=== PATIENT | female | born 1935 | race Caucasian/White ===

== ENCOUNTER 2024-01-10 13:31 | Observation (INO) | payer MEDICARE, BC ==
--- NOTE | 2024-01-10 13:52 | ERPHSYRPT ---
- History of Present Illness Time Seen by Provider: 01/10/24 13:40 Source: patient, family Exam Limitations: no limitations Patient Subjective Stated Complaint: critical labs Triage Nursing Assessment: patient's daughter stated that her nephrologists had routine labs drawn 01/09/24, and her potassium came back at 2.6 Physician History: This is an emaciated appearing 88-year-old white female patient who had routine labs drawn 24 hours ago at the order of her [employer] supervisor. The potassium was 2.6. Patient was notified yesterday but her daughter did not bring the patient in until just now. Per patient's daughter's report, who provided additional, independent history secondary to the patient's memory lapses, the patient takes twice a day potassium supplementation. Patient has a history of chronically low potassium and chronically low sodium. Patient has chronic kidney disease, hyperlipidemia, gastroesophageal reflux disease, hypertension, hypothyroidism, arrhythmia (takes Eliquis). She is also on digoxin and takes Lasix daily. Patient denies headache. Patient denies chest pain. Patient denies nausea vo miting diarrhea symptoms. Patient denies abdominal pain Timing/Duration: today Severity: mild Associated Symptoms: denies symptoms Allergies/Adverse Reactions: Penicillins Adverse Reaction (Verified 01/10/24 13:43) Home Medications: Apixaban [Eliquis] 2.5 mg PO BID 04/16/23 [History] Levothyroxine Sodium 75 mcg PO DAILY 04/16/23 [History] Lorazepam 0.5 mg [Ativan 0.5 MG] 0.5 mg PO DAILY PRN PRN 04/16/23 [History] Metolazone 2.5 mg [Zaroxolyn 2.5 MG] 2.5 mg PO UD 04/16/23 [History] Metoprolol Succinate [Toprol Xl] 75 mg PO BID 04/16/23 [History] Simvastatin 20Mg [Zocor 20Mg] 20 mg PO QPM 04/16/23 [History] Torsemide 100 mg PO DAILY 01/10/24 [History] Hx Tetanus, Diphtheria Vaccination/Date Given: No Hx Influenza Vaccination/Date Given: No Hx Pneumococcal Vaccination/Date Given: No Travel Risk - International Travel Have you traveled outside of the country in past 3 weeks: No - Emerging Infectious Disease Are you exhibiting symptoms associated with any current EIDs: No - Review of Systems Constitutional: Weakness (Chronic) Eyes: No Symptoms Ears, Nose, & Throat: No Symptoms Respiratory: No Symptoms Cardiac: No Symptoms Abdominal/Gastrointestinal: No Symptoms Genitourinary Symptoms: No Symptoms Musculoskeletal: No Symptoms Skin: No Symptoms Neurological: No Symptoms Psychological: No Symptoms Endocrine: No Symptoms Hematologic/Lymphatic: No Symptoms Immunological/Allergic: No Symptoms All Other Systems: Reviewed and Negative - Past Medical History Pertinent Past Medical History: Yes Neurological History: No Pertinent History ENT History: No Pertinent History Cardiac History: No Pertinent History, Hypertension, Other Respiratory History: No Pertinent History Endocrine Medical History: Diabetes Type II Musculoskeletal History: No Pertinent History GI Medical History: Other History: No Pertinent History Psycho-Social History: No Pertinent History Female Reproductive Disorders: Ovarian Cancer Other Medical History: Left lower quadrant hernia, bowel obstruction in this area, afib - Past Surgical History Past Surgical History: Yes (LLQ hernia repair) Neuro Surgical History: No Pertinent History Cardiac: No Pertinent History Respiratory: No Pertinent History Gastrointestinal: Hernia Repair Genitourinary: No Pertinent History Musculoskeletal: No Pertinent History Female Surgical History: No Pertinent History Significant Family History: no pertinent family hx - Social History Smoking Status: Former smoker Exposure to second hand smoke: No Drug Use: none Patient Lives Alone: Yes - Social Determinants of Health Will the patient participate in the screening: Yes Do you worry about a steady place to live?: No In the past 12 months,have you had to go without utilities?: No Transportation Issues: No Has anyone in your support network made you feel unsafe?: No Have you or anyone in your house had to go without enough: No - Nursing Vital Signs Nursing Vital Signs: Initial Vital Signs Temperature 97.3 F 01/10/24 13:35 Pulse Rate 87 01/10/24 13:35 Respiratory Rate 16 01/10/24 13:35 Blood Pressure 112/45 01/10/24 13:35 O2 Sat by Pulse Oximetry 94 L 01/10/24 13:35 Pain Scale Pain Intensity 0 - Physical Exam General Appearance: no apparent distress, alert, cachetic Eye Exam: PERRL/EOMI, eyes nml inspection Ears, Nose, Throat Exam: normal ENT inspection, moist mucous membranes Neck Exam: normal inspection, non-tender, supple, full range of motion Respiratory Exam: normal breath sounds, lungs clear, airway intact, No chest tenderness, No respiratory distress Cardiovascular Exam: regular rate/rhythm, normal heart sounds, normal peripheral pulses Gastrointestinal/Abdomen Exam: soft, normal bowel sounds, No tenderness Pelvic Exam: not done Rectal Exam: not done Back Exam: normal inspection, normal range of motion, No CVA tenderness, No vertebral tenderness Extremity Exam: normal inspection, normal range of motion, pelvis stable Neurologic Exam: alert, oriented x 3, cooperative, 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 nml as tested, normal mood/affect Skin Exam: normal color, warm, dry Lymphatic Exam: No adenopathy SpO2 Interpretation: borderline oxygenation SpO2: 94 O2 Delivery: Room Air - Course Nursing assessment & vital signs reviewed: Yes EKG Interpreted by Me: RATE (85), A-fib, NORMAL AXIS, Left Bundle Branch Block, Other (No acute ischemia on today's twelve-lead EKG) Ordered Tests: Active Orders 24 hr Category Date Time Status Duplicating Machine Operator STAT Care 01/10/24 13:46 Completed EKG-ER Only STAT Care 01/10/24 13:46 Completed IV Insertion STAT Care 01/10/24 13:46 Completed Telemetry q4h Care 01/10/24 14:56 Completed Telemetry q4h Care 01/10/24 19:43 Completed BMP Stat Lab 01/10/24 13:46 Completed BMP Stat Lab 01/10/24 19:06 Completed BMP Stat Lab 01/10/24 21:35 Completed MAGNESIUM Stat Lab 01/10/24 13:46 Completed Medication Summary Discontinued Medications Generic Name Dose Route Start Last Admin Trade Name Freq PRN Reason Stop Dose Admin Potassium Chloride 20 meq in 100 mls @ 50 mls/hr 01/10/24 14:56 01/10/24 15:05 Potassium Chloride 20 Meq In Water 100ml IV 01/10/24 16:55 50 mls/hr STAT ONE Administration Sodium Chloride 500 mls @ 100 mls/hr 01/10/24 14:57 01/10/24 20:25 Sodium Chloride 0.9% 500 Ml IV 01/10/24 19:56 Infused .Q5H ONE Infusion Sodium Chloride Confirm 01/10/24 15:02 Sodium Chloride 0.9% 500 Ml Administered 01/10/24 15:03 Dose 500 mls @ ud IV .STK-MED ONE Potassium Chloride Confirm 01/10/24 15:02 Potassium Chloride 20 Meq In Water 100ml Administered 01/10/24 15:03 Dose 100 mls @ ud IV .STK-MED ONE Potassium Chloride 20 meq in 100 mls @ 50 mls/hr 01/10/24 19:42 Potassium Chloride 20 Meq In Water 100ml IV 01/10/24 21:41 STAT ONE Potassium Chloride 10 meq 01/10/24 14:56 01/10/24 15:04 Potassium Chloride Tab 10 Meq Tab PO 01/10/24 14:57 10 meq STAT ONE Administration Potassium Chloride Confirm 01/10/24 15:02 Potassium Chloride Tab 10 Meq Tab Administered 01/10/24 15:03 Dose 10 meq .ROUTE .STK-MED ONE Potassium Chloride 20 meq 01/10/24 20:18 01/10/24 20:40 Potassium Chloride Tab 10 Meq Tab PO 01/10/24 20:19 20 meq STAT ONE Administration Potassium Chloride Confirm 01/10/24 20:39 Potassium Chloride Tab 10 Meq Tab Administered 01/10/24 20:40 Dose 20 meq .ROUTE .STK-MED ONE Lab/Rad Data: Laboratory Result Diagrams 01/10/24 21:35 Laboratory Results 01/10/24 01/10/24 01/10/24 Range/Units 21:35 19:06 13:46 Sodium 131 L 129 L 129 L (135-145) mmol/L Potassium 2.7 L* 2.5 L* 2.7 L* (3.5-5.1) mmol/L Chloride 79 L 80 L 76 L (98-107) mmol/L Carbon Dioxide 38 H 39 H 36 H (22-30) mmol/L Anion Gap 16.7 H 12.5 19.7 H (5-15) MEQ/L BUN 118 H 121 H 131 H (7-17) mg/dL Creatinine 2.23 H 2.17 H 2.19 H (0.52-1.04) mg/dL Estimated GFR 20.6 21.3 21.0 ML/MIN Glucose 240 H 180 H 239 H (74-106) mg/dL Calcium 9.2 8.8 9.2 (8.4-10.2) mg/dL Magnesium 2.6 H (1.6-2.3) mg/dL - Progress Progress: re-examined Progress Note: 01/10/24 13:51 My medical decision making and the assignment of low to moderate complexity of this patient's medical issue is based on review of the patient's past medical history, review patient's medication list, review patient drug allergy list, history present illness and physical findings on examination. The workup in this patient includes placement of intravenous line, twelve-lead EKG, BMP and magnesium level. 01/10/24 22:10 I interpreted the patient's laboratory data results. The potassium 24 hours ago was 2.6. I repeated it today and it was 2.7. Magnesium level was 2.6 today. We provided the patient with 30 mEq of potassium (20 mill equivalents IV and 10 mEq p.o.). We repeated the potassium level and it actually decreased. I did not believe this was accurate. I did provide the patient with 20 mEq p.o. potassium and waited an hour to repeat the potassium level which returned to 2.7. The patient was not tolerating intravenous potassium and therefore we opted for the oral potassium. The patient has chronic low potassium usually around 3.3. I will contact the telehospitalist regarding this patient and possibly place her in observation/telemetry. 01/10/24 22:21 Patient has been hemodynamically stable throughout her stay in the emergency department. It has been difficult to get her potassium above 2.7 despite patient starting out at a potassium of 2.7 and receiving 50 mill equivalents of potassium over the last 8-1/2 hours. I think the patient would be best served by placing her in observation. I spoke with Dr. Alaina Monge and I reviewed the patient history, physical findings, presenting chief complaint and results of the laboratory data. He agrees and we will place this patient in observation on telemetry bed and follow a potassium protocol. Discussed with : Baltazar Counseled pt/family regarding: lab results, diagnosis Medical Desision Making - Independent Historian Additional History obtained from: Child - Discussion of managment Care discussed with:: hospitalist Reviewed:: Test results, Need for additional workup Agreed on:: place in obs Will see patient: in hospital - Diagnostic Testing Diagnostic test were ordered, analyzed, and reviewed by me: Yes - Risk of complications The pt has a high risk of morbidity or mortality based on: Decision regarding hospitilization or escalation of hosp level of care - Departure Departure Disposition: Observation Clinical Impression: Hypokalemia Condition: Stable Critical Care Time: No Critical Care Time(excluding separately billable procedures): Critical 30-74 mins (50) Referrals: SHAHRZAD BRYAN MD [Primary Care Provider] - Follow up/PCP as directed
[2024-01-10 14:24] LABS: Calcium 9.2 mg/dL (8.4-10.2); Creatinine 1 2.19 mg/dL (0.52-1.04); MAGNESIUM 2.6 mg/dL (1.6-2.3)
[2024-01-10 14:36] LABS: ANION GAP 19.7 MEQ/L (5-15); Potassium 2.7 mmol/L (3.5-5.1)
[2024-01-10] MEDS ORDERED: Sodium Chloride 0.9% 500 ML 500 ML IV ONE (15:02)
[2024-01-10] MEDS ORDERED: Klor Con ONE ×2 (15:02→20:39)
[2024-01-10] MEDS ORDERED: POTASSIUM CHLORIDE 20 mEq IN WATER 100ML 100 ML IV ONE (15:02)
[2024-01-10] MEDS: Klor Con PO ONE ×2 (15:04→20:40)
[2024-01-10] MEDS: POTASSIUM CHLORIDE 20 mEq IN WATER 100ML 20 MEQ/100 ML BAG IV ONE (15:05)
[2024-01-10] MEDS: Sodium Chloride 0.9% 500 ML 500 ML IV ONE (15:06)
[2024-01-10 19:24] LABS: Calcium 8.8 mg/dL (8.4-10.2); Creatinine 1 2.17 mg/dL (0.52-1.04); EST GLOMERULAR FILTRATION RATE 21.3 ML/MIN
[2024-01-10 19:37] LABS: Potassium 2.5 mmol/L (3.5-5.1)
[2024-01-10 19:38] LABS: ANION GAP 12.5 MEQ/L (5-15)
[2024-01-10 21:50] LABS: Calcium 9.2 mg/dL (8.4-10.2); Creatinine 1 2.23 mg/dL (0.52-1.04); EST GLOMERULAR FILTRATION RATE 20.6 ML/MIN
[2024-01-10 22:01] LABS: ANION GAP 16.7 MEQ/L (5-15); Potassium 2.7 mmol/L (3.5-5.1)
[2024-01-10] MEDS ORDERED: TYLENOL 325 MG PO PRN ×2 (23:13→23:16)
[2024-01-10] MEDS ORDERED: Zofran 4 MG/2 ML VIAL IV PRN (23:16)
--- NOTE | 2024-01-10 23:27 | PCM.HP ---
History of Present Illness - Chief Complaint Chief Complaint: Hypokalemia History of Present Illness: is a 88 year old female with CKD, chronic hypokalemia, CHF who presents with K of 2.6, sent in to ED by her nehphrologist. Per patient's daughter's report, who provided additional, independent history secondary to the patient's memory lapses, the patient takes twice a day potassium supplementation. Patient has a history of chronically low potassium and chronically low sodium. Patient has chronic kidney disease, hyperlipidemia, gastroesophageal reflux disease, hypertension, hypothyroidism, arrhythmia (takes Eliquis). She is also on digoxin and takes Lasix daily. Patient denies headache. Patient denies chest pain. Patient denies nausea vomiting diarrhea symptoms. Patient denies abdominal pain. - Review of Systems Constitutional: No Fever, No Chills Eyes: No Symptoms Ears, Nose, & Throat: No Symptoms Respiratory: No Cough, No Short Of Breath Cardiac: No Chest Pain, No Edema, No Syncope Abdominal/Gastrointestinal: No Abdominal Pain, No Nausea, No Vomiting, No Diarrhea Genitourinary Symptoms: No Dysuria Musculoskeletal: No Back Pain, No Neck Pain Skin: No Rash Neurological: No Dizziness, No Focal Weakness, No Sensory Changes Psychological: No Symptoms Endocrine: No Symptoms Hematologic/Lymphatic: No Symptoms Immunological/Allergic: No Symptoms Medications & Allergies Home Medications: Home Medication List Apixaban [Eliquis] 2.5 mg PO BID 04/16/23 [History Confirmed 01/10/24] Levothyroxine Sodium 75 mcg PO DAILY 04/16/23 [History Confirmed 01/10/24] Lorazepam 0.5 mg [Ativan 0.5 MG] 0.5 mg PO DAILY PRN PRN 04/16/23 [History Confirmed 01/10/24] Metolazone 2.5 mg [Zaroxolyn 2.5 MG] 2.5 mg PO UD 04/16/23 [History Confirmed 01/10/24] Metoprolol Succinate [Toprol Xl] 75 mg PO BID 04/16/23 [History Confirmed 01/10/24] Simvastatin 20Mg [Zocor 20Mg] 20 mg PO QPM 04/16/23 [History Confirmed 01/10/24] Acetaminophen 325 mg [Tylenol 325 mg] 650 mg PO Q4H PRN PRN tablet 04/18/23 [Rx Confirmed 01/10/24] D5ns 1000 ml [Dextrose 5%-NS IV Solution 1000 ML] 80 ml IV .[id number] 04/18/23 [Rx Confirmed 01/10/24] Ondansetron HCl 4 mg/2 ml [Zofran 4 MG/2 ML VIAL] 4 mg IV Q4H PRN PRN 04/18/23 [Rx Confirmed 01/10/24] Torsemide 100 mg PO DAILY 01/10/24 [History Confirmed 01/10/24] Allergies/Adverse Reactions: Allergies Allergy/AdvReac Type Severity Reaction Status Date / Time Penicillins AdvReac Verified 01/10/24 13:43 - Past Medical History Past Medical History: Yes Neurological History: No Pertinent History ENT History: No Pertinent History Cardiac History: No Pertinent History, Arrhythmia, High Cholesterol, Hypertension, Other Respiratory History: No Pertinent History Endocrine Medical History: Diabetes Type II, Hypothyroidism Musculoskelatal History: No Pertinent History GI Medical History: Other History: Renal Disease Pyscho-Social History: No Pertinent History Reproductive Disorders: Ovarian Cancer Comment: Left lower quadrant hernia, bowel obstruction in this area, afib - Past Surgical History Past Surgical History: Yes (LLQ hernia repair) Neuro Surgical History: No Pertinent History Cardiac History: No Pertinent History Respiratory Surgery: No Pertinent History GI Surgical History: Appendectomy, Cholecystectomy, Hernia Repair Genitourinary Surgical Hx: No Pertinent History Musculskeletal Surgical Hx: No Pertinent History Female Surgical History: Hysterectomy Significant Family History: no pertinent family hx - Social History Smoking Status: Former smoker Exposure to second hand smoke: No Alcohol: None Drug Use: none - Social Determinants of Health Will the patient participate in the screening: Yes Do you worry about a steady place to live?: No In the past 12 months,have you had to go without utilities?: No Have you or anyone in your house had to go without enough: No Transportation Issues: No Has anyone in your support network made you feel unsafe?: No Does the patient want assistance with any of the above?: No - Physical Exam Vital Signs: Vital Signs - 24 hr Temp Pulse Resp BP BP Pulse Ox 01/10/24 22:28 94 L 01/10/24 20:30 113/56 01/10/24 20:00 114/54 01/10/24 19:30 118/54 01/10/24 19:01 113/65 01/10/24 18:30 130/54 01/10/24 18:00 116/60 01/10/24 17:30 73 16 113/59 01/10/24 17:00 71 19 121/58 01/10/24 16:38 78 17 118/65 01/10/24 16:37 71 16 01/10/24 16:35 67 14 01/10/24 16:31 71 17 74/59 01/10/24 16:06 71 17 108/86 01/10/24 16:05 83 23 01/10/24 15:31 112/51 01/10/24 15:00 76 13 102/49 99 01/10/24 14:30 73 17 99/33 96 01/10/24 14:00 81 23 112/54 96 01/10/24 13:35 97.3 F 87 16 112/45 94 L General Appearance: no apparent distress, alert Neurologic Exam: alert, oriented x 3, cooperative, normal mood/affect, nml cerebellar function, nml station & gait, sensation nml, No motor deficits Eye Exam: PERRL/EOMI, eyes nml inspection Ears, Nose, Throat Exam: normal ENT inspection, TMs normal, pharynx normal, moist mucous membranes Neck Exam: normal inspection, non-tender, supple, full range of motion Respiratory Exam: normal breath sounds, lungs clear, No respiratory distress Cardiovascular Exam: regular rate/rhythm, normal heart sounds, normal peripheral pulses Gastrointestinal/Abdomen Exam: soft, normal bowel sounds, No tenderness, No mass Back Exam: normal inspection, normal range of motion, No CVA tenderness, No vertebral tenderness Extremity Exam: normal inspection, normal range of motion, pelvis stable Skin Exam: normal color, warm, dry, No rash Lymphatic Exam: No adenopathy Results - Labs Lab/Micro Results: Lab Results-Last 24 Hours 01/10/24 01/10/24 01/10/24 Range/Units 13:46 19:06 21:35 Sodium 129 L 129 L 131 L (135-145) mmol/L Potassium 2.7 L* 2.5 L* 2.7 L* (3.5-5.1) mmol/L Chloride 76 L 80 L 79 L (98-107) mmol/L Carbon Dioxide 36 H 39 H 38 H (22-30) mmol/L Anion Gap 19.7 H 12.5 16.7 H (5-15) MEQ/L BUN 131 H 121 H 118 H (7-17) mg/dL Creatinine 2.19 H 2.17 H 2.23 H (0.52-1.04) mg/dL Estimated GFR 21.0 21.3 20.6 ML/MIN Glucose 239 H 180 H 240 H (74-106) mg/dL Calcium 9.2 8.8 9.2 (8.4-10.2) mg/dL Magnesium 2.6 H (1.6-2.3) mg/dL Assessment/Plan (1) Hypokalemia Current Visit: Yes Status: Chronic Assessment & Plan: Likely due to diuretics but per daughter they are necessary to prevent swelling and has been followed by cardiology closely. 1. Replete with oral K as IV is not tolerated well, recheck at 4 am, and replete as needed Code(s): E87.6 - HYPOKALEMIA Telemedicine Encounter - Telemedicine Encounter Telemedicine Encounter: The entirety of this encounter was performed via Telemedicine"
[2024-01-11] MEDS: Klor Con PO ONE ×2 (00:17→22:35)
[2024-01-11] MEDS: POTASSIUM CHLORIDE 20 mEq IN WATER 100ML 20 MEQ/100 ML BAG IV ONE ×2 (01:17)
--- NOTE | 2024-01-11 05:12 | PCM.NOTE ---
Date and Time: 01/11/24 9892 Subjective Assessment: is a 88 year old female with CKD, AIF(Eliqus), HTN, GERD, HLD, hypothyroidism, chronic hypokalemia/hyponatremia, and CHF who presented to ED 01/10/24 under the advisement of her graphite mill operator for evaluation of hypokalemia with OP labs showing a K+ of 2.6. 01/11/24: Met with patient bedside. No complaints today other than the potassium campbell a little through her IV. Discussed labwork, Potassium level remains low at 2.4. Plan for replenishment today. Hold torsemide/metolazone. Possible discharge tomorrow pending treatment response. Denies fever,cough, sob, cp, abdominal pain, MORAN, dizziness, N/V/D. - Review of Systems Constitutional: No Symptoms Eyes: No Symptoms Ears, Nose, & Throat: No Symptoms Respiratory: No Symptoms Cardiac: No Symptoms Abdominal/Gastrointestinal: No Symptoms Genitourinary Symptoms: No Symptoms Musculoskeletal: No Symptoms Skin: No Symptoms Neurological: No Symptoms Psychological: No Symptoms Endocrine: No Symptoms Hematologic/Lymphatic: No Symptoms Immunological/Allergic: No Symptoms Objective Exam General Appearance: no apparent distress Neurologic Exam: alert, oriented x 3, cooperative Skin Exam: normal color Wound Assessment: Skin/Wound Assessment Wound/Incision Assessment Start: 01/10/24 23:48 Text: Status: Active Freq: Q6H Protocol: Document 01/11/24 02:00 AR (Rec: 01/11/24 02:20 AR [id number]) Wound/Incision Assessment Bilat lower legs Wound Assessment Admission Wound Stage Non Pressure Wound General Appearance Well Approximated,Reddened Surrounding Tissue Tiburon Comment Bilat legs are discolored, reddened, dry, and flaking of skin, Swelling noted. Left foot is cool to touch whereas right foot is warm to touch. Wound Photo Photo Taken Yes Date: 01/10/24 Time: 23:30 Eye Exam: PERRL Ears, Nose, Throat Exam: normal ENT inspection Neck Exam: normal inspection, full range of motion Respiratory Exam: normal breath sounds, lungs clear Cardiovascular Exam: regular rate/rhythm, normal heart sounds Gastrointestinal/Abdomen Exam: soft, normal bowel sounds Extremity Exam: normal inspection Back Exam: normal inspection Pelvic Exam: deferred Rectal Exam: deferred Objective Data Vital Signs: Vital Signs - 24 hr Temp Pulse Resp BP BP Pulse Ox 01/11/24 00:00 18 94 L 01/10/24 23:28 97.3 F 76 18 144/68 94 L 01/10/24 22:28 94 L 01/10/24 20:30 113/56 01/10/24 20:00 114/54 01/10/24 19:30 118/54 01/10/24 19:01 113/65 01/10/24 18:30 130/54 01/10/24 18:00 116/60 01/10/24 17:30 73 16 113/59 01/10/24 17:00 71 19 121/58 01/10/24 16:38 78 17 118/65 01/10/24 16:37 71 16 01/10/24 16:35 67 14 01/10/24 16:31 71 17 74/59 01/10/24 16:06 71 17 108/86 01/10/24 16:05 83 23 01/10/24 15:31 112/51 01/10/24 15:00 76 13 102/49 99 01/10/24 14:30 73 17 99/33 96 01/10/24 14:00 81 23 112/54 96 01/10/24 13:35 97.3 F 87 16 112/45 94 L Pain Assessment - Last Documented Pain Intensity 0 Intake and Output: Intake & Output 01/08/24 01/09/24 01/10/24 01/11/24 11:59 11:59 11:59 11:59 Weight 69 kg Lab Results: Lab Results-Last 24 Hours 01/10/24 01/10/24 01/10/24 Range/Units 13:46 19:06 21:35 Sodium 129 L 129 L 131 L (135-145) mmol/L Potassium 2.7 L* 2.5 L* 2.7 L* (3.5-5.1) mmol/L Chloride 76 L 80 L 79 L (98-107) mmol/L Carbon Dioxide 36 H 39 H 38 H (22-30) mmol/L Anion Gap 19.7 H 12.5 16.7 H (5-15) MEQ/L BUN 131 H 121 H 118 H (7-17) mg/dL Creatinine 2.19 H 2.17 H 2.23 H (0.52-1.04) mg/dL Estimated GFR 21.0 21.3 20.6 ML/MIN Glucose 239 H 180 H 240 H (74-106) mg/dL Calcium 9.2 8.8 9.2 (8.4-10.2) mg/dL Magnesium 2.6 H (1.6-2.3) mg/dL Assessment/Plan (1) Hypokalemia Current Visit: Yes Status: Acute Assessment & Plan: -2.6 on admission - received 50 meq po and 20meq IV - repeat K+ at 2.4 -plan for 20meq IV with IV NS +20K at 30ml/hr -Repeat potassium after 1st Krider - will replenish per protocol -Hold Torsemide/metolazone -tele Code(s): E87.6 - HYPOKALEMIA (2) Hyponatremia Current Visit: No Status: Acute Assessment & Plan: -mild, improving now at 132 -TSH, lipid, urine sodium/osmo -serum osmo -Pt does have h/o of malignancy ? SIADH Code(s): E87.1 - HYPO-OSMOLALITY AND HYPONATREMIA (3) Acute on chronic renal failure Current Visit: No Status: Acute Assessment & Plan: -baseline at 1.7 -avoid magalis/arb/diuretics -monitor renal/lytes daily -gentle hydration Code(s): N17.9 - ACUTE KIDNEY FAILURE, UNSPECIFIED; N18.9 - CHRONIC KIDNEY DISEASE, UNSPECIFIED (4) Atrial fibrillation Current Visit: No Status: Chronic Assessment & Plan: -continue home meds Eliquis/metoprolol Code(s): I48.91 - UNSPECIFIED ATRIAL FIBRILLATION (5) Metastases to the liver Current Visit: No Status: Chronic Assessment & Plan: -noted, adds complexity -LFTs WNL Code(s): C78.7 - SECONDARY MALIG NEOPLASM OF LIVER AND INTRAHEPATIC BILE DUCT (6) Ovarian cancer Current Visit: No Status: Chronic Assessment & Plan: -noted, adds complexity (7) Type 2 diabetes mellitus Current Visit: Yes Status: Acute Assessment & Plan: -ADA diet -SSI low dose -A1c VTE: Eliquis Dispo: 1-2 days Full Code
[2024-01-11] MEDS ORDERED: HUMALOG SQ PRN (05:18)
[2024-01-11 05:59] LABS: Absolute Neutrophil Ct (ANC) 4.66 x10^3/uL (1.56-6.13); BASOPHIL % 0.3 % (0.1-1.2); Basophil (Absolute #) 0.02 x10^3/uL (0.01-0.08); Eosinophil % 1.6 % (0.7-5.8); Hematocrit 26.4 % (34.1-44.9); Hemoglobin 8.6 g/dL (11.2-15.7); IMMATURE GRAN # 0.03 x10^3u/L (0.001-0.031); IMMATURE GRAN % 0.5 % (0.001-0.429); Lymphocyte (Absolute #) 0.77 x10^3/uL (1.18-3.74); Lymphocytes % 12.2 % (19.3-51.7); Mean Cell Volume 83.3 fL (79.4-94.8); Mean Corpuscular Hemoglobin 27.1 pg (25.6-32.2); Mean Corpuscular Hgb Concent. 32.6 g/dL (32.2-35.5); Mean Platelet Volume 9.8 fL (9.4-12.3); Monocyte (Absolute #) 0.71 x10^3/uL (0.24-0.86); Monocytes % 11.3 % (4.7-12.5); Neutrophil % 74.1 % (34.0-71.1); Platelet Count 266 x10^3/uL (182-369); Red Blood Count 3.17 x10^6/uL (3.93-5.22); Red Cell Distribution Width 15.7 % (11.7-14.4); White Blood Count 6.3 x10^3/uL (3.98-10.04)
[2024-01-11 06:45] LABS: ALBUMIN 3.7 g/dL (3.5-5.0); BILIRUBIN,TOTAL 0.8 mg/dL (0.2-1.3); Calcium 9.1 mg/dL (8.4-10.2); Creatinine 1 1.99 mg/dL (0.52-1.04); EST GLOMERULAR FILTRATION RATE 23.6 ML/MIN; MAGNESIUM 2.4 mg/dL (1.6-2.3); Total Protein 6.9 g/dL (6.3-8.2)
[2024-01-11 07:02] LABS: Potassium 2.4 mmol/L (3.5-5.1)
[2024-01-11 07:03] LABS: ANION GAP 15.4 MEQ/L (5-15)
[2024-01-11] MEDS: Sodium Chloride 0.9% W/ 20 mEq KCl/LITER 1,000 ML IV SCH (08:19)
[2024-01-11] MEDS: POTASSIUM CHLORIDE 20 mEq IN WATER 100ML 100 ML IV SCH (08:20)
[2024-01-11] MEDS: DEMADEX 20 MG PO SCH (08:35)
[2024-01-11] MEDS: ELIQUIS 2.5 MG TABLET PO SCH (08:42)
[2024-01-11] MEDS: SYNTHROID 75 MCG PO SCH (08:42)
[2024-01-11] MEDS: Toprol Xl 50 MG PO SCH (08:42)
[2024-01-11 09:35] LABS: TSH, 3RD Generation 1.505 mIU/L (0.470-4.680)
[2024-01-11] MEDS ORDERED: Toprol Xl 100 MG PO SCH (10:00)
[2024-01-11] MEDS ORDERED: NON-FORMULARY ITEM (Torsemide [Torsemide] 100 MG Tablet) PO SCH (10:00)
[2024-01-11] MEDS ORDERED: Zaroxolyn 2.5 MG PO SCH (10:00)
[2024-01-11] MEDS: ZOCOR 20MG PO SCH (21:18)
[2024-01-11] MEDS: POTASSIUM CHLORIDE 20 mEq IN WATER 100ML 20 MEQ/100 ML BAG IV SCH (22:35)
[2024-01-12] MEDS: Ativan 0.5 MG PO PRN (01:09)
[2024-01-12 07:05] LABS: Hematocrit 27.7 % (34.1-44.9); Hemoglobin 8.5 g/dL (11.2-15.7); Mean Cell Volume 88.8 fL (79.4-94.8); Mean Corpuscular Hemoglobin 27.2 pg (25.6-32.2); Mean Corpuscular Hgb Concent. 30.7 g/dL (32.2-35.5); Mean Platelet Volume 10.4 fL (9.4-12.3); Platelet Count 258 x10^3/uL (182-369); Red Blood Count 3.12 x10^6/uL (3.93-5.22); Red Cell Distribution Width 15.9 % (11.7-14.4); White Blood Count 6.5 x10^3/uL (3.98-10.04)
[2024-01-12 07:15] LABS: ALBUMIN 3.3 g/dL (3.5-5.0); ANION GAP 8.5 MEQ/L (5-15); BILIRUBIN,TOTAL 0.7 mg/dL (0.2-1.3); Calcium 8.5 mg/dL (8.4-10.2); Creatinine 1 1.68 mg/dL (0.52-1.04); EST GLOMERULAR FILTRATION RATE 28.9 ML/MIN; MAGNESIUM 2.2 mg/dL (1.6-2.3); Potassium 3.3 mmol/L (3.5-5.1); Total Protein 6.3 g/dL (6.3-8.2)
[2024-01-12] MEDS: Klor Con PO SCH (09:42)
--- NOTE | 2024-01-12 11:59 | PCM.DS ---
Discharge Summary Date of Admission: 01/10/24 23:11 Date of Discharge: 01/12/24 Admitting Physician: NOELLE TREJO MD Primary Care Provider: SHAHRZAD BRYAN MD Allergies Allergies Penicillins Adverse Reaction (Verified 01/10/24 23:28) Hospital Summary - Hospital Course Hospital Course: is a 88 year old female with CKD, AIF(Eliqus), HTN, GERD, HLD, hypothyroidism, chronic hypokalemia/hyponatremia, and CHF. She presented to ED 01/10/24 under the advisement of her prism inspector for evaluation of hypokalemia with OP labs showing a K+ of 2.6. K+ improved to 3.2 today and replacement continued. If improves may d/c later today. Creat at baseline. She denies any further concerns. She would like to go home today. Will continue replacement OP. - Vitals & Intake/Output Vital Signs: Vital Signs Temperature 97.6 F 01/12/24 07:08 Pulse Rate 85 01/12/24 07:08 Respiratory Rate 16 01/12/24 07:08 Blood Pressure 112/53 01/12/24 07:08 O2 Sat by Pulse Oximetry 97 01/12/24 07:08 Intake & Output: Intake & Output 01/09/24 01/10/24 01/11/24 01/12/24 11:59 11:59 11:59 11:59 Intake Total 440 3144 Output Total 2650 Balance 440 494 Weight 69 kg - Lab Result Diagrams: 01/12/24 05:30 01/12/24 08:45 Lab Results-Last 24 Hrs: Lab Results-Last 24 Hours 01/11/24 01/11/24 01/12/24 Range/Units 14:00 21:55 05:30 WBC 6.5 (3.98-10.04) x10^3/uL RBC 3.12 L (3.93-5.22) x10^6/uL Hgb 8.5 L (11.2-15.7) g/dL Hct 27.7 L (34.1-44.9) % MCV 88.8 D (79.4-94.8) fL MCH 27.2 (25.6-32.2) pg MCHC 30.7 L (32.2-35.5) g/dL RDW 15.9 H (11.7-14.4) % Plt Count 258 (182-369) x10^3/uL MPV 10.4 (9.4-12.3) fL Sodium (135-145) mmol/L Potassium 2.7 L* 2.6 L* (3.5-5.1) mmol/L Chloride (98-107) mmol/L Carbon Dioxide (22-30) mmol/L Anion Gap (5-15) MEQ/L BUN (7-17) mg/dL Creatinine (0.52-1.04) mg/dL Estimated GFR ML/MIN Glucose (74-106) mg/dL Calcium (8.4-10.2) mg/dL Magnesium (1.6-2.3) mg/dL Total Bilirubin (0.2-1.3) mg/dL AST (14-36) U/L ALT (0-35) U/L Alkaline Phosphatase (38-126) U/L Serum Total Protein (6.3-8.2) g/dL Albumin (3.5-5.0) g/dL Urine Sodium (30-90) mmol/L 01/12/24 01/12/24 01/12/24 Range/Units 06:45 08:45 10:00 WBC (3.98-10.04) x10^3/uL RBC (3.93-5.22) x10^6/uL Hgb (11.2-15.7) g/dL Hct (34.1-44.9) % MCV (79.4-94.8) fL MCH (25.6-32.2) pg MCHC (32.2-35.5) g/dL RDW (11.7-14.4) % Plt Count (182-369) x10^3/uL MPV (9.4-12.3) fL Sodium 134 L (135-145) mmol/L Potassium 3.3 L D 3.2 L (3.5-5.1) mmol/L Chloride 93 L D (98-107) mmol/L Carbon Dioxide 36 H (22-30) mmol/L Anion Gap 8.5 (5-15) MEQ/L BUN 104 H (7-17) mg/dL Creatinine 1.68 H (0.52-1.04) mg/dL Estimated GFR 28.9 ML/MIN Glucose 145 H (74-106) mg/dL Calcium 8.5 (8.4-10.2) mg/dL Magnesium 2.2 (1.6-2.3) mg/dL Total Bilirubin 0.70 (0.2-1.3) mg/dL AST 24 (14-36) U/L ALT 19 (0-35) U/L Alkaline Phosphatase 78 (38-126) U/L Serum Total Protein 6.3 (6.3-8.2) g/dL Albumin 3.3 L (3.5-5.0) g/dL Urine Sodium 13 L (30-90) mmol/L Discharge Exam General Appearance: no apparent distress, alert Neurologic Exam: alert, oriented x 3, cooperative, normal mood/affect, nml cerebellar function, sensation nml, No motor deficits Eye Exam: PERRL, EOMI, eyes nml inspection Ears, Nose, Throat Exam: normal ENT inspection, pharynx normal, moist mucous membranes Neck Exam: normal inspection, non-tender, supple, full range of motion Respiratory Exam: normal breath sounds, lungs clear, No respiratory distress Cardiovascular Exam: regular rate/rhythm, normal heart sounds Gastrointestinal/Abdomen Exam: soft, No tenderness, No mass Pelvic Exam: deferred Rectal Exam: deferred Back Exam: normal inspection, normal range of motion, No CVA tenderness, No vertebral tenderness Extremity Exam: normal inspection, normal range of motion Skin Exam: normal color, warm, dry Wound Assessment: Skin/Wound Assessment Wound/Incision Assessment Start: 01/10/24 23:48 Text: Status: Active Freq: Q6H Protocol: Document 01/12/24 08:00 EK (Rec: 01/12/24 11:29 EK [id number]) Wound/Incision Assessment Bilat lower legs Wound Assessment Shift Assessment Comment BLE ARE FIRM AND APPEAR DARK IN COLOR AND DRY WITH FLAKING SKIN. Wound Photo Photo Taken No Final Diagnosis/Problem List - Final Discharge Diagnosis/Problem (1) Hypokalemia Current Visit: Yes Status: Acute Assessment & Plan: -2.6 on admission - received 50 meq po and 20meq IV - repeat K+ at 2.4 -plan for 20meq IV with IV NS +20K at 30ml/hr -Repeat potassium after replacement - will replenish per protocol -Hold Torsemide/metolazone -tele - today K+ 3.3- continue replacement - Will d/c with PO meds Code(s): E87.6 - HYPOKALEMIA (2) Type 2 diabetes mellitus Current Visit: Yes Status: Chronic Assessment & Plan: -ADA diet -SSI low dose, accuchecks ac/hs -A1c 6.60- replaced (3) Acute on chronic renal failure Current Visit: No Status: Acute Assessment & Plan: - Creat at baseline- LIZZETH resolved Code(s): N17.9 - ACUTE KIDNEY FAILURE, UNSPECIFIED; N18.9 - CHRONIC KIDNEY DISEASE, UNSPECIFIED (4) Hyponatremia Current Visit: No Status: Acute Assessment & Plan: - mild 134- trend OP Code(s): E87.1 - HYPO-OSMOLALITY AND HYPONATREMIA (5) Atrial fibrillation Current Visit: No Status: Chronic Assessment & Plan: -continue home meds Eliquis/metoprolol Code(s): I48.91 - UNSPECIFIED ATRIAL FIBRILLATION (6) Ovarian cancer Current Visit: No Status: Chronic Assessment & Plan: -noted, adds complexity (7) Metastases to the liver Current Visit: No Status: Chronic Assessment & Plan: -noted, adds complexity -LFTs WNL Code(s): C78.7 - SECONDARY MALIG NEOPLASM OF LIVER AND INTRAHEPATIC BILE DUCT - Discharge Discharge Date: 01/12/24 Disposition: Home, Self-Care Condition: Stable Prescriptions: Continue Lorazepam 0.5 mg [Ativan 0.5 MG] 0.5 mg PO DAILY PRN PRN PRN Reason: Anxiety Levothyroxine Sodium 75 mcg PO QAM Apixaban [Eliquis] 2.5 mg PO BID Acetaminophen 325 mg [Tylenol 325 mg] 650 mg PO Q4H PRN PRN tablet PRN Reason: Pain, Fever, Headache Metoprolol Tartrate 75 mg PO BID Atorvastatin Calcium 20 mg PO HS Potassium Chloride 20 meq PO BID Discontinued Metolazone 2.5 mg [Zaroxolyn 2.5 MG] 5 mg PO DAILY Torsemide 100 mg PO BID Additional Instructions: Hold Torsemide and Metolazone X1 week - until you f/u with nephrology. You will need potassium rechecked at that time. Follow up with: SHAHRZAD BRYAN MD [Primary Care Provider] - 01/27/24 11:20 am
[2024-01-12 12:02] VITALS: TEMP 97.5
[2024-01-12 16:34] VITALS: BP 113/56; PULSE 77; O2SAT 99
[2024-01-12 17:25] VITALS: RESP 21
== END 2024-01-12 19:23 | disposition home or self-care (01) ==
LOC: ED 13:31 → MED SURG 23:11
PROVIDERS: ADMIT Student in an Organized Health Care Education/Training Program; ATTEND Student in an Organized Health Care Education/Training Program
DX: E87.6 Hypokalemia (principal); E11.22 Type 2 diabetes mellitus with diabetic chronic kidney disease; I13.10 Hypertensive heart and chronic kidney disease without heart failure, with stage 1 through stage 4 chronic kidney disease, or unspecified chronic kidney disease; N18.9 Chronic kidney disease, unspecified; N17.9 Acute kidney failure, unspecified; I48.91 Unspecified atrial fibrillation; Z79.01 Long term (current) use of anticoagulants; K21.9 Gastro-esophageal reflux disease without esophagitis; E78.5 Hyperlipidemia, unspecified; E03.9 Hypothyroidism, unspecified; E87.1 Hypo-osmolality and hyponatremia; C56.9 Malignant neoplasm of unspecified ovary; C78.7 Secondary malignant neoplasm of liver and intrahepatic bile duct; Z79.899 Other long term (current) drug therapy
CPT/HCPCS: 36000; 36415; 80048; 80053; 80061; 83036; 83721; 83735; 83880; 83930; 83935; 84132; 84300; 84443; 85025; 85027; 93005; 93041; 93268; 94760; 96360; 96361; 99284; G0378; J3480; Q3014; A9270-GY

== ENCOUNTER 2024-02-28 12:58 | Inpatient (IN) | payer MEDICARE, BC ==
--- NOTE | 2024-02-28 13:07 | ERPHSYRPT ---
<MARITA JACKSON - Last Filed: 02/28/24 18:02> - History of Present Illness Source: patient, EMS, old records Exam Limitations: no limitations Occurred: yesterday (Approximately 5 PM) Reason for Fall: fell from standing pos Injuries/Pain Location: upper extremity (Left elbow), lower extremity (Right lower extremity) Loss of Consciousness: no loss of consciousness Severity of Pain-Max: mild (To moderate) Severity of Pain-Current: mild Modifying Factors: Improves With: movement (To moderate) Associated Symptoms (Fall): extremity injury (See above), No abdominal pain, No back pain, No confusion, No chest pain, No neck pain, No shortness of breath, No slurred speech Hx Tetanus, Diphtheria Vaccination/Date Given: No Hx Influenza Vaccination/Date Given: No Hx Pneumococcal Vaccination/Date Given: No <IVY INGRAM - Last Filed: 03/01/24 07:11> - History of Present Illness Time Seen by Provider: 02/28/24 13:25 Physician History: This is an 88-year-old white female patient who is weak and cachectic chronically and is a patient of . Patient was brought into the emergency department today by the certified income tax preparer service secondary to a fall that occurred yesterday, 02/27/2024, at approximately 5 PM. Patient states that she fell yesterday and "my butt hurts, my right lower leg hurts and my left elbow hurts". She denies chest pain. She denies shortness of breath. She denies abdominal pain. Patient has a history of hypertension, anxiety, hyperlipidemia, gastroesophageal reflux disease and chronic renal disease. She has atrial fibrillation and is taking Eliquis. (IVY INGRAM) Allergies/Adverse Reactions: Penicillins Adverse Reaction (Verified 01/10/24 23:28) Home Medications: Apixaban [Eliquis] 2.5 mg PO BID 04/16/23 [History] Levothyroxine Sodium 75 mcg PO QAM 04/16/23 [History] Lorazepam 0.5 mg [Ativan 0.5 MG] 0.5 mg PO DAILY PRN PRN 04/16/23 [History] Atorvastatin Calcium 20 mg PO HS 01/10/24 [History] Metoprolol Tartrate 75 mg PO BID 01/10/24 [History] Potassium Chloride 20 meq PO BID 01/10/24 [History] Famotidine [Pepcid] 20 mg PO DAILY 02/29/24 [History] Spironolactone 50 mg PO BID 02/29/24 [History] Torsemide 100 mg PO BID 02/29/24 [History] Travel Risk - International Travel Have you traveled outside of the country in past 3 weeks: No - Emerging Infectious Disease Are you exhibiting symptoms associated with any current EIDs: No <IVY INGRAM - Last Filed: 03/01/24 07:11> - Review of Systems Constitutional: Weakness (Chronically) Eyes: No Symptoms Ears, Nose, & Throat: No Symptoms Respiratory: No Symptoms Cardiac: No Symptoms Abdominal/Gastrointestinal: No Symptoms Genitourinary Symptoms: No Symptoms Musculoskeletal: Fall, Injury (Left elbow, right lower extremity and buttocks) Skin: No Symptoms Neurological: No Symptoms Psychological: No Symptoms Endocrine: No Symptoms Hematologic/Lymphatic: No Symptoms Immunological/Allergic: No Symptoms All Other Systems: Reviewed and Negative <IVY INGRAM - Last Filed: 03/01/24 07:11> - Past Medical History Pertinent Past Medical History: Yes Neurological History: No Pertinent History ENT History: No Pertinent History Cardiac History: No Pertinent History, Arrhythmia, High Cholesterol, Hypertension, Other Respiratory History: No Pertinent History Endocrine Medical History: Diabetes Type II, Hypothyroidism Musculoskeletal History: No Pertinent History GI Medical History: Other History: Renal Disease Psycho-Social History: No Pertinent History Female Reproductive Disorders: Ovarian Cancer Other Medical History: Left lower quadrant hernia, bowel obstruction in this area, afib - Past Surgical History Past Surgical History: Yes (LLQ hernia repair) Neuro Surgical History: No Pertinent History Cardiac: No Pertinent History Respiratory: No Pertinent History Gastrointestinal: Appendectomy, Cholecystectomy, Hernia Repair Genitourinary: No Pertinent History Musculoskeletal: No Pertinent History Female Surgical History: Hysterectomy Significant Family History: no pertinent family hx - Social History Smoking Status: Former smoker Exposure to second hand smoke: No Drug Use: none Patient Lives Alone: Yes - Social Determinants of Health Will the patient participate in the screening: Yes Do you worry about a steady place to live?: No In the past 12 months,have you had to go without utilities?: No Transportation Issues: No Has anyone in your support network made you feel unsafe?: No Have you or anyone in your house had to go without enough: No <IVY INGRAM - Last Filed: 03/01/24 07:11> - Physical Exam General Appearance: no apparent distress, alert, thin ENT Exam: airway nml, nml ext.inspection, No hemotympanum Neck Exam: focal neuro deficit Respiratory/Chest Exam: normal breath sounds Rectal Exam: deferred Peripheral Pulses: carotid (R): 2+, carotid (L): 2+, femoral (R): 2+, femoral (L): 2+, dorsalis-pedis (R): 2+, dorsalis-pedis (L): 2+ Neurologic Exam: nml cerebellar function, nml station & gait, other (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 per pt and family) SpO2 Interpretation: normal SpO2: 96 O2 Delivery: Room Air <MARITA JACKSON - Last Filed: 02/28/24 18:02> - [place] Coma Score Best Eye Response (Mac): (4) open spontaneously Best Verbal Response (Mac): (5) oriented Best Motor Response ([place]): (6) obeys commands Mac Total: 15 - Physical Exam General Appearance: no apparent distress, alert, cachetic Head Injury: no evidence of injury Eye Exam: PERRL/EOMI, eyes nml inspection ENT Exam: airway nml, nml ext.inspection Neck Exam: supple, trachea midline, full range of motion, normal alignment, normal inspection Respiratory/Chest Exam: normal breath sounds, No chest tenderness, No respiratory distress, No ecchymosis, No crepitus Cardiovascular Exam: normal heart sounds, regular rate/rhythm Gastrointestinal Exam: soft, normal bowel sounds, No tenderness Rectal Exam: not done Back Exam: normal inspection, normal range of motion, No CVA tenderness, No vertebral tenderness Extremity Exam: normal inspection, normal range of motion, pelvis stable Neurologic Exam: alert, oriented x 3, cooperative, normal mood/affect, sensation nml Skin Exam: normal color, warm, dry SpO2 Interpretation: normal O2 Delivery: Room Air <IVY INGRAM - Last Filed: 03/01/24 07:11> - Nursing Vital Signs Nursing Vital Signs: Initial Vital Signs Temperature 98.2 F 02/28/24 13:03 Pulse Rate 88 02/28/24 13:03 Respiratory Rate 18 02/28/24 13:03 Blood Pressure 117/71 02/28/24 13:03 O2 Sat by Pulse Oximetry 95 02/28/24 13:03 Pain Scale Pain Intensity 3 - Course Nursing assessment & vital signs reviewed: Yes EKG Interpreted by Me: Left [place] Deviation, Left Bundle Branch Block, Non- specific ST Changes, Other (Afluter - tx with elliquis) - Radiology Exams Left Elbow X-ray Interpretation: Reviewed by me, Other (Dr. Ingram read as No major acute or obvious Fx - fianl reading Friday by Rad ) Right Knee X-ray Interpretation: Reviewed by me, Other (Dr. Ingram read as No major acute or obvious Fx - fianl reading Friday by Rad) Right Lower Leg X-ray Interpretation: Reviewed by me, Other (Dr. Ingram read as No major acute or obvious Fx - fianl reading Friday by Rad) Right Hip X-ray Interpretation: Reviewed by me, Other (Dr. Ingram read ( Bilateral Hip and Pelvis) as No major acute or obvious Fx - fianl reading Friday by Rad) - CT Exams Pelvis CT Interpretation: Tele-radiologist Report, No Fracture (Rad reading confirms no pelvic or Hip Fx seen. Right Ovarian mass known to pt by Hx per daughter) <MARITA JACKSON - Last Filed: 02/28/24 18:02> - Course Nursing assessment & vital signs reviewed: Yes <IVY INGRAM - Last Filed: 03/01/24 07:11> Ordered Tests: Active Orders 24 hr Category Date Time Status UA W/RFX UR CULTURE Stat Lab 02/29/24 20:21 Completed Medication Summary Generic Name Dose Route Start Last Admin Trade Name Freq PRN Reason Stop Dose Admin Acetaminophen 325 mg 02/28/24 23:07 02/28/24 23:43 Acetaminophen 325 Mg Tablet PO 03/29/24 23:06 325 mg Q4H PRN PRN Administration PAIN, FEVER, HEADACHE Apixaban 2.5 mg 02/29/24 10:00 02/29/24 22:48 Apixaban 2.5 Mg Tablet PO 03/30/24 09:59 2.5 mg BID PAULINE Administration Bacitracin Zinc 1 each 02/29/24 22:00 02/29/24 22:47 Bacitracin Packet 1 Each Pckt TP 03/30/24 21:59 1 each BID PAULINE Administration Famotidine 20 mg 03/01/24 10:00 Famotidine 20 Mg Tablet PO 03/31/24 09:59 DAILY PAULINE Dextrose/Sodium Chloride 1,000 mls @ 75 mls/hr 02/29/24 18:30 02/29/24 18:29 Dextrose 5%-Ns Iv Solution 1000 Ml IV 03/30/24 18:29 75 mls/hr .[id number] PAULINE Administration Insulin Human Lispro 0 unit 02/29/24 08:03 Insulin Lispro 1 Unit SQ 03/30/24 08:02 UD PRN HYPERGLYCEMIA Levothyroxine Sodium 75 mcg 02/29/24 10:00 02/29/24 08:34 Levothyroxine Sodium 75 Mcg Tablet PO 03/30/24 09:59 75 mcg QAM PAULINE Administration Methyl Salicylate 1 gm 02/29/24 14:00 02/29/24 14:36 Methyl Salicylate/Menthol 85 Gm Cream TOP 03/30/24 13:59 1 gm QIDPRN PRN Administration Metoprolol Tartrate 75 mg 02/29/24 10:00 02/29/24 22:55 Metoprolol Tartrate 50 Mg Tablet PO 03/30/24 09:59 Not Given BID PAULINE Pantoprazole Sodium 40 mg 02/29/24 10:00 02/29/24 08:33 Protonix (Pantoprazole) 40 Mg Tablet PO 03/30/24 09:59 40 mg DAILY PAULINE Administration Simvastatin 20 mg 02/28/24 23:44 02/29/24 22:48 Simvastatin 20 Mg Tablet PO 03/29/24 23:43 20 mg HS PAULINE Administration Discontinued Medications Generic Name Dose Route Start Last Admin Trade Name Freq PRN Reason Stop Dose Admin Enoxaparin Sodium 40 mg 02/29/24 10:00 Enoxaparin Sodium 40 Mg/0.4 Ml Syringe SQ 03/30/24 09:59 DAILY PAULINE Sodium Chloride 1,000 mls @ 50 mls/hr 02/28/24 23:15 02/28/24 23:43 Sodium Chloride 0.9% 1000 Ml IV 03/29/24 23:14 50 mls/hr .Q20H PAULINE Administration Potassium Chloride 100 mls @ 50 mls/hr 02/29/24 08:00 02/29/24 12:28 Potassium Chloride 20 Meq In Water 100ml IV 02/29/24 11:59 50 mls/hr Q2H PAULINE Administration Potassium Chloride/Dextrose/Sod Cl 1,000 mls @ 60 mls/hr 02/29/24 08:30 02/29/24 08:33 Dextrose 5% -Nacl 0.9% 1000 Ml + Kcl 20 Meq IV 03/30/24 08:29 60 mls/hr .[id number] PAULINE Administration Methyl Salicylate 1 gm 02/29/24 14:00 Methyl Salicylate/Menthol 85 Gm Cream TOP 03/30/24 13:59 QID [facility] Non-Formulary Medication 20 mg 02/29/24 22:00 Atorvastatin Calcium [Atorvastatin Calcium] PO 03/30/24 21:59 HS PAULINE Potassium Bicarbonate 25 meq 02/29/24 08:00 02/29/24 14:15 Potassium Bicarbonate 25 Meq Tab PO 02/29/24 12:01 25 meq Q2H PAULINE Administration Simvastatin Confirm 02/28/24 23:30 Simvastatin 20 Mg Tablet Administered 02/28/24 23:31 Dose 20 mg .ROUTE .[facility] Lab/Rad Data: Laboratory Result Diagrams 02/28/24 16:50 02/28/24 16:50 Laboratory Results 02/28/24 02/28/24 02/28/24 Range/Units 16:50 16:50 16:50 WBC 13.8 H (3.98-10.04) x10^3/uL RBC 4.21 (3.93-5.22) x10^6/uL Hgb 10.7 L (11.2-15.7) g/dL Hct 32.5 L (34.1-44.9) % MCV 77.2 L (79.4-94.8) fL MCH 25.4 L (25.6-32.2) pg MCHC 32.9 (32.2-35.5) g/dL RDW 15.9 H (11.7-14.4) % Plt Count 266 (182-369) x10^3/uL MPV 10.2 (9.4-12.3) fL Gran % 87.6 H (34.0-71.1) % Immature Gran % (Auto) 0.9 H (0.001-0.429) % Nucleat RBC Rel Count 0.0 (0.00-0.2) % Eos # (Auto) 0 L (0.04-0.36) x10^3/uL Immature Gran # (Auto) 0.12 H (0.001-0.031) x10^3u/L Absolute Lymphs (auto) 0.69 L (1.18-3.74) x10^3/uL Absolute Monos (auto) 0.89 H (0.24-0.86) x10^3/uL Absolute Nucleated RBC 0.00 (0.00-0.012) x10^3u/L Lymphocytes % 5.0 L (19.3-51.7) % Monocytes % 6.4 (4.7-12.5) % Eosinophils % 0.0 L (0.7-5.8) % Basophils % 0.1 (0.1-1.2) % Absolute Granulocytes 12.08 H (1.56-6.13) x10^3/uL Basophils # 0.02 (0.01-0.08) x10^3/uL Sodium 127 L (135-145) mmol/L Potassium 3.2 L (3.5-5.1) mmol/L Chloride 84 L (98-107) mmol/L Carbon Dioxide 25 (22-30) mmol/L Anion Gap 21.2 H (5-15) MEQ/L BUN 161 H (7-17) mg/dL Creatinine 3.22 H (0.52-1.04) mg/dL Estimated GFR 13.2 ML/MIN Glucose 255 H (74-106) mg/dL Lactic Acid (0.4-2.0) Calcium 9.1 (8.4-10.2) mg/dL Total Bilirubin 0.80 (0.2-1.3) mg/dL AST 23 (14-36) U/L ALT 19 (0-35) U/L Alkaline Phosphatase 85 (38-126) U/L Serum Total Protein 7.4 (6.3-8.2) g/dL Albumin 4.2 (3.5-5.0) g/dL TSH 3rd Generation 0.890 (0.470-4.680) mIU/L 08/03/24 Range/Units 16:24 WBC (3.98-10.04) x10^3/uL RBC (3.93-5.22) x10^6/uL Hgb (11.2-15.7) g/dL Hct (34.1-44.9) % MCV (79.4-94.8) fL MCH (25.6-32.2) pg MCHC (32.2-35.5) g/dL RDW (11.7-14.4) % Plt Count (182-369) x10^3/uL MPV (9.4-12.3) fL Gran % (34.0-71.1) % Immature Gran % (Auto) (0.001-0.429) % Nucleat RBC Rel Count (0.00-0.2) % Eos # (Auto) (0.04-0.36) x10^3/uL Immature Gran # (Auto) (0.001-0.031) x10^3u/L Absolute Lymphs (auto) (1.18-3.74) x10^3/uL Absolute Monos (auto) (0.24-0.86) x10^3/uL Absolute Nucleated RBC (0.00-0.012) x10^3u/L Lymphocytes % (19.3-51.7) % Monocytes % (4.7-12.5) % Eosinophils % (0.7-5.8) % Basophils % (0.1-1.2) % Absolute Granulocytes (1.56-6.13) x10^3/uL Basophils # (0.01-0.08) x10^3/uL Sodium (135-145) mmol/L Potassium (3.5-5.1) mmol/L Chloride (98-107) mmol/L Carbon Dioxide (22-30) mmol/L Anion Gap (5-15) MEQ/L BUN (7-17) mg/dL Creatinine (0.52-1.04) mg/dL Estimated GFR ML/MIN Glucose (74-106) mg/dL Lactic Acid 0.8 (0.4-2.0) Calcium (8.4-10.2) mg/dL Total Bilirubin (0.2-1.3) mg/dL AST (14-36) U/L ALT (0-35) U/L Alkaline Phosphatase (38-126) U/L Serum Total Protein (6.3-8.2) g/dL Albumin (3.5-5.0) g/dL TSH 3rd Generation (0.470-4.680) mIU/L - Progress Progress: improved, re-examined Discussed with Dr.: Other (Dr. Patel for Dr. Ragini Sams) Will see patient in: hospital (full admit) Counseled pt/family regarding: lab results, diagnosis, need for follow-up, rad results <MARITA JACKSON - Last Filed: 02/28/24 18:02> - Progress Progress: unchanged Counseled pt/family regarding: diagnosis, need for follow-up, rad results <IVY INGRAM - Last Filed: 03/01/24 07:11> - Progress Progress Note: 02/28/24 16:10 pt is received at change-over from Dr. Ingram who has already read the regular x-rays and has ordered also a CT pelvis and coccyx to be sure. Discussion of this pending study and Hx and findings and pt introduction also presented and discussed. Pt has normal mental status and neuro exam and reports just tripped - no other symptoms just sore on right leg/hip and left elbow after fall. CHest and abd all nontender and spine nontender without peritoneal signs or masses. N/V intact all ext with full ROM. Pt reports no change in general level of weakness which is chronic for her and PMDs aware. 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 No pronator drift. No headache. 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 visual carvalho intact. Discussed risk/benefit of additional labs with pt and family and they wish to proceed with CMP, lactate, CBC, UA, TSH, and EKG. Pt has chronic Renal failure with some recent changes to control K. No other changes. Discussed risks/benefit of additional imaging such as CT abd and head ( pt on elliquis but did not hit head or have any LCO with fall or after), and they wish to hold off at this time which is reasonable given Hx and findings at this time. 02/28/24 17:03 pt and family advised of right ovarian cystic mass on CT and they are already aware and following with Onc but the specialists believe this is most likely benign - but they will follow-up again. 02/28/24 17:12 Discussed with pt and family that there still could be undetected pathology either as a result of or a cause for her fall and evolving , including cardiovascular- cerebrovascular, , neurologic, abdominal or other pathology they understand and prefer DC with F/U outpt rather than furhter testing or admission in hosp at this time and have the capacity to make this choice. 02/28/24 17:54 Pt has elevated RFTs from prior in December and low Na lyte abd mild hypokalemia with some DM as well. No N or V. - will consult with Hospitalist to consider if obs is indicated to carefully correct lytes - consult placed. 02/28/24 18:02 Vernell Sampson in consultation felt that pt warrants full admit and family agrees . (MARITA JACKSON) 02/28/24 13:53 My medical decision making and the assignment of low complexity to this pa joann's medical issue today is based on review of the patient's past medical history, review of the patient's medication list, review of patient drug allergy list, history of present illness and physical findings on examination. The workup in this patient includes x-ray of the patient's sacrum and coccyx, bilateral hips and pelvis, right femur, right knee and right lower leg, left elbow. 02/28/24 15:13 Interpreted the preliminary radiographic reports on the following studies: 1. Bilateral hips and pelvis show no acute fracture or dislocation 2. Right femur shows no acute fracture or dislocation 3. Right knee shows no acute fracture or dislocation 4. Right lower leg shows no acute fracture or dislocation Patient could not roll onto the left side and the x-ray images are insufficient to evaluate the sacrum and coccyx. Therefore we are ordering a CT scan of the pelvis to evaluate the sacrum and coccyx. 03/01/24 07:10 Late entry: I transferred care to Dr. Jackson at 1600 on 02/28/2024. He is to reassess patient and to follow-up on pending study results and make final disposition. (IVY INGRAM) Medical Desision Making - Independent Historian Additional History obtained from: Family - Discussion of managment Care discussed with:: hospitalist Reviewed:: Test results, Need for additional workup Agreed on:: Treatment plan, need for follow-up, decision to admit Will see patient: in hospital - Diagnostic Testing Diagnostic test were ordered, analyzed, and reviewed by me: Yes Radiological Interpretation: Reviewed by me, Teleradiologist Report - Risk of complications The pt has a high risk of morbidity or mortality based on: Decision regarding hospitilization or escalation of hosp level of care <MARITA JACKSON - Last Filed: 02/28/24 18:02> - Departure Departure Disposition: In-patient Admission Critical Care Time: No <MARITA JACKSON - Last Filed: 02/28/24 18:02> <IVY INGRAM - Last Filed: 03/01/24 07:11> - Departure Clinical Impression: Ovarian mass, right, fALL WITH MULTIPLE CONTUSIONS, Atrial flutter, Chronic Renal Failure - with recent incr, Type 2 diabetes mellitus, Hyponatremia, Hypokalemia Condition: Good
--- NOTE | 2024-02-28 16:41 | XRAY ---
CLINICAL HISTORY: Eval sacrum/coccyx, fall injury COMPARISON: None. TECHNIQUE: Non-contrast CT of the pelvis was performed, with the following protocol: axial images with [slice thickness], and reconstructed coronal and sagittal images. No intravenous contrast was administered. One of the following dose reduction techniques was utilized for this exam: Automated exposure control, adjustment of the mA and/or kV according to patient size, and use of iterative reconstruction. FINDINGS: Pelvis: Urinary Bladder: Normal in contour and wall thickness. No intraluminal lesions. Uterus: Normal in size and contour. No masses or abnormal thickening. Ovaries: right ovarian cystic mass measuring 7.4x6.1 cm noted. Vagina: Normal in contour and wall thickness. Cervix: No evidence of mass or abnormal thickening. Bones and Soft Tissues: Pelvic bones and soft tissues are unremarkable. No fractures or abnormal masses were identified. Umbilical region cystic lesion measuring 2.0x4.0 cm noted. Marked degenerative changes are noted in bilateral hip joints and lumbar spine. Reduced intervertebral disc height at L4-L5 level with end plate irregularity and sclerosis. with facet arthropathic changes. IMPRESSION: 1. No evidence of acute pathology or sacrum/coccyx fractures. 2. Right ovarian cystic mass measuring 7.4x6.1 cm noted. An MRI scan is advised for future assessment. 3. Umbilical region cystic mass measuring 2.0x4.0 cm noted. The US advised for future assessment. 4. Marked lumbar spondylosis with endplate sclerosis and irregularity at L4-L5 level, for MRI lumbar spine with contrast correlation to rule out the possibility of discitis. Electronically Signed by: Sarah Borrero MD. (02/28/2024 16:37:49 EDT)
[2024-02-28 16:57] LABS: Absolute Neutrophil Ct (ANC) 12.08 x10^3/uL (1.56-6.13); BASOPHIL % 0.1 % (0.1-1.2); Basophil (Absolute #) 0.02 x10^3/uL (0.01-0.08); Eosinophil (Absolute #) 0 x10^3/uL (0.04-0.36); Hematocrit 32.5 % (34.1-44.9); Hemoglobin 10.7 g/dL (11.2-15.7); IMMATURE GRAN # 0.12 x10^3u/L (0.001-0.031); IMMATURE GRAN % 0.9 % (0.001-0.429); Lymphocyte (Absolute #) 0.69 x10^3/uL (1.18-3.74); Mean Cell Volume 77.2 fL (79.4-94.8); Mean Corpuscular Hemoglobin 25.4 pg (25.6-32.2); Mean Corpuscular Hgb Concent. 32.9 g/dL (32.2-35.5); Mean Platelet Volume 10.2 fL (9.4-12.3); Monocyte (Absolute #) 0.89 x10^3/uL (0.24-0.86); Monocytes % 6.4 % (4.7-12.5); Neutrophil % 87.6 % (34.0-71.1); Platelet Count 266 x10^3/uL (182-369); Red Blood Count 4.21 x10^6/uL (3.93-5.22); Red Cell Distribution Width 15.9 % (11.7-14.4); White Blood Count 13.8 x10^3/uL (3.98-10.04)
[2024-02-28 17:16] LABS: ALBUMIN 4.2 g/dL (3.5-5.0); ANION GAP 21.2 MEQ/L (5-15); BILIRUBIN,TOTAL 0.8 mg/dL (0.2-1.3); Calcium 9.1 mg/dL (8.4-10.2); Creatinine 1 3.22 mg/dL (0.52-1.04); EST GLOMERULAR FILTRATION RATE 13.2 ML/MIN; Potassium 3.2 mmol/L (3.5-5.1); Total Protein 7.4 g/dL (6.3-8.2)
--- NOTE | 2024-02-28 20:43 | XRAY ---
Indication: Pain following fall one day earlier. Comparison: None 2 view right femur demonstrates osteopenia, mild knee degenerative changes, and extensive scattered vascular calcifications. No other bony, articular, or soft tissue abnormalities.
--- NOTE | 2024-02-28 20:43 | XRAY ---
Indication: Pain following fall. Comparison: None 2 AP views sacrum/coccyx demonstrates osteopenia, moderate lower lumbar degenerative changes, mild left hip degenerative changes, and extensive scattered vascular calcifications. No other bony, articular, or soft tissue abnormalities.
--- NOTE | 2024-02-28 20:45 | XRAY ---
Indication: Pain following fall one day earlier. Comparison: None 3 view right knee demonstrates osteopenia, mild tricompartmental degenerative changes, and extensive scattered vascular calcifications. No other bony, articular, or soft tissue abnormalities.
--- NOTE | 2024-02-28 20:45 | XRAY ---
Indication: Pain following fall one day earlier. Comparison: None AP pelvis and 2 view left/right hip demonstrates osteopenia, moderate lower lumbar degenerative changes, mild left degenerative changes, and extensive scattered vascular calcifications. No other bony, articular, or soft tissue abnormalities.
--- NOTE | 2024-02-28 20:48 | XRAY ---
Indication: Pain following fall one day earlier. Comparison: None 2 view right lower leg demonstrates osteopenia, mild knee degenerative changes, and extensive scattered vascular calcifications. No other bony, articular, or soft tissue abnormalities.
--- NOTE | 2024-02-28 20:48 | XRAY ---
Indication: Pain following fall one day earlier. Comparison: None 3 view left elbow demonstrates osteopenia, posterior soft tissue swelling/laceration, mild scattered vascular calcifications, and IV catheter in situ. No other bony, articular, or soft tissue abnormalities.
[2024-02-28] MEDS ORDERED: ZOCOR 20MG ONE (23:30)
[2024-02-28] MEDS: TYLENOL 325 MG PO PRN (23:43)
[2024-02-28] MEDS: ELIQUIS 2.5 MG TABLET PO SCH (23:43)
[2024-02-28] MEDS: Sodium Chloride 0.9% 1000 ML 1,000 ML IV SCH (23:43)
[2024-02-28] MEDS: ZOCOR 20MG PO SCH (23:45)
--- NOTE | 2024-02-29 00:03 | PCM.HP ---
History of Present Illness - Chief Complaint Chief Complaint: hyponatremia, hypokalemia Date: 02/28/24 History of Present Illness: Ms. KILGORE is a 88 year old female with a past medical history significant for hypertension, hyperlipidemia and mild CKD who was brought to the hospital with increasing confusion, chest pressure and shortness of breaht. - Review of Systems Constitutional: No Fever, No Chills Eyes: No Vision Changes Ears, Nose, & Throat: No Epistaxis Respiratory: No Cough, No Orthopnea, No Short Of Breath Cardiac: Chest Pain, No Edema, No Palpitations Abdominal/Gastrointestinal: No Abdominal Pain, No Nausea, No Vomiting, No Diarrhea Genitourinary Symptoms: No Dysuria, No Frequency, No Hematuria Musculoskeletal: No Myalgias Skin: No Rash Neurological: No Dizziness, No Irritability Medications & Allergies Home Medications: Home Medication List Apixaban [Eliquis] 2.5 mg PO BID 04/16/23 [History Confirmed 01/10/24] Levothyroxine Sodium 75 mcg PO QAM 04/16/23 [History Confirmed 01/10/24] Lorazepam 0.5 mg [Ativan 0.5 MG] 0.5 mg PO DAILY PRN PRN 04/16/23 [History Confirmed 01/10/24] Acetaminophen 325 mg [Tylenol 325 mg] 650 mg PO Q4H PRN PRN tablet 04/18/23 [Rx Confirmed 01/10/24] Atorvastatin Calcium 20 mg PO HS 01/10/24 [History Confirmed 01/10/24] Metoprolol Tartrate 75 mg PO BID 01/10/24 [History Confirmed 01/10/24] Potassium Chloride 20 meq PO BID 01/10/24 [History Confirmed 01/10/24] Allergies/Adverse Reactions: Allergies Allergy/AdvReac Type Severity Reaction Status Date / Time Penicillins AdvReac Verified 01/10/24 23:28 - Past Medical History Past Medical History: Yes Neurological History: No Pertinent History ENT History: No Pertinent History Cardiac History: Arrhythmia, High Cholesterol, Hypertension, Other Respiratory History: No Pertinent History Endocrine Medical History: Diabetes Type II, Hypothyroidism Musculoskelatal History: No Pertinent History GI Medical History: Other History: Renal Disease Pyscho-Social History: No Pertinent History Reproductive Disorders: Ovarian Cancer Comment: Left lower quadrant hernia, bowel obstruction in this area, afib - Past Surgical History Past Surgical History: Yes Neuro Surgical History: No Pertinent History Cardiac History: No Pertinent History Respiratory Surgery: No Pertinent History GI Surgical History: Appendectomy, Cholecystectomy, Hernia Repair Genitourinary Surgical Hx: No Pertinent History Musculskeletal Surgical Hx: No Pertinent History Female Surgical History: Hysterectomy Significant Family History: no pertinent family hx - Social History Smoking Status: Former smoker Exposure to second hand smoke: No Alcohol: None Drug Use: none - Social Determinants of Health Will the patient participate in the screening: Yes Do you worry about a steady place to live?: No Do you have any problems with any of the following?: No known problems In the past 12 months,have you had to go without utilities?: No Have you or anyone in your house had to go without enough: No Transportation Issues: No Has anyone in your support network made you feel unsafe?: No Does the patient want assistance with any of the above?: No - Physical Exam Vital Signs: Vital Signs - 24 hr Temp Pulse Resp BP BP Pulse Ox 02/28/24 21:43 95 02/28/24 20:43 98.1 F 86 18 100/58 95 02/28/24 19:45 120/71 90 L 02/28/24 19:30 110/66 92 L 02/28/24 19:15 127/76 97 02/28/24 19:00 120/69 97 02/28/24 18:45 79 131/73 97 02/28/24 18:30 108/70 98 02/28/24 18:17 144/72 67 L 02/28/24 18:13 148/79 27 L 02/28/24 18:04 96 02/28/24 18:00 68 90 L 02/28/24 17:50 94 L 02/28/24 17:40 90 L 02/28/24 17:30 92 L 02/28/24 17:21 92 L 02/28/24 17:10 78 124/80 74 L 02/28/24 17:01 61 L 02/28/24 16:50 94 L 02/28/24 16:47 56 L 02/28/24 16:31 120/82 66 L 02/28/24 16:15 68 111/72 94 L 02/28/24 16:00 104/69 08/03/24 15:45 109/72 92 L 02/28/24 15:30 123/78 93 L 02/28/24 15:15 85 17 108/67 97 02/28/24 15:00 85 17 124/71 96 02/28/24 14:45 87 17 108/77 98 02/28/24 14:30 78 14 108/77 95 02/28/24 14:19 81 16 122/65 100 02/28/24 14:18 86 20 76 L 02/28/24 13:45 82 14 104/62 98 02/28/24 13:30 82 10 L 107/63 99 02/28/24 13:15 85 10 L 98/54 97 02/28/24 13:03 98.2 F 85 24 117/71 117/71 95 General Appearance: no apparent distress Neurologic Exam: alert Ears, Nose, Throat Exam: dry mucous membranes Neck Exam: supple Respiratory Exam: lungs clear Cardiovascular Exam: regular rate/rhythm Gastrointestinal/Abdomen Exam: soft Extremity Exam: No pedal edema, No swelling Skin Exam: normal color, No rash Results - Labs Lab/Micro Results: Lab Results-Last 24 Hours 02/28/24 02/28/24 02/28/24 Range/Units 16:24 16:50 16:50 WBC 13.8 H (3.98-10.04) x10^3/uL RBC 4.21 (3.93-5.22) x10^6/uL Hgb 10.7 L (11.2-15.7) g/dL Hct 32.5 L (34.1-44.9) % MCV 77.2 L (79.4-94.8) fL MCH 25.4 L (25.6-32.2) pg MCHC 32.9 (32.2-35.5) g/dL RDW 15.9 H (11.7-14.4) % Plt Count 266 (182-369) x10^3/uL MPV 10.2 (9.4-12.3) fL Gran % 87.6 H (34.0-71.1) % Immature Gran % (Auto) 0.9 H (0.001-0.429) % Nucleat RBC Rel Count 0.0 (0.00-0.2) % Eos # (Auto) 0 L (0.04-0.36) x10^3/uL Immature Gran # (Auto) 0.12 H (0.001-0.031) x10^3u/L Absolute Lymphs (auto) 0.69 L (1.18-3.74) x10^3/uL Absolute Monos (auto) 0.89 H (0.24-0.86) x10^3/uL Absolute Nucleated RBC 0.00 (0.00-0.012) x10^3u/L Lymphocytes % 5.0 L (19.3-51.7) % Monocytes % 6.4 (4.7-12.5) % Eosinophils % 0.0 L (0.7-5.8) % Basophils % 0.1 (0.1-1.2) % Absolute Granulocytes 12.08 H (1.56-6.13) x10^3/uL Basophils # 0.02 (0.01-0.08) x10^3/uL Sodium 127 L (135-145) mmol/L Potassium 3.2 L (3.5-5.1) mmol/L Chloride 84 L (98-107) mmol/L Carbon Dioxide 25 (22-30) mmol/L Anion Gap 21.2 H (5-15) MEQ/L BUN 161 H (7-17) mg/dL Creatinine 3.22 H (0.52-1.04) mg/dL Estimated GFR 13.2 ML/MIN Glucose 255 H (74-106) mg/dL POC Glucometer (74 to 106) mg/dL Lactic Acid 0.8 (0.4-2.0) Calcium 9.1 (8.4-10.2) mg/dL Total Bilirubin 0.80 (0.2-1.3) mg/dL AST 23 (14-36) U/L ALT 19 (0-35) U/L Alkaline Phosphatase 85 (38-126) U/L Serum Total Protein 7.4 (6.3-8.2) g/dL Albumin 4.2 (3.5-5.0) g/dL TSH 3rd Generation (0.470-4.680) mIU/L 02/28/24 02/28/24 Range/Units 16:50 21:14 WBC (3.98-10.04) x10^3/uL RBC (3.93-5.22) x10^6/uL Hgb (11.2-15.7) g/dL Hct (34.1-44.9) % MCV (79.4-94.8) fL MCH (25.6-32.2) pg MCHC (32.2-35.5) g/dL RDW (11.7-14.4) % Plt Count (182-369) x10^3/uL MPV (9.4-12.3) fL Gran % (34.0-71.1) % Immature Gran % (Auto) (0.001-0.429) % Nucleat RBC Rel Count (0.00-0.2) % Eos # (Auto) (0.04-0.36) x10^3/uL Immature Gran # (Auto) (0.001-0.031) x10^3u/L Absolute Lymphs (auto) (1.18-3.74) x10^3/uL Absolute Monos (auto) (0.24-0.86) x10^3/uL Absolute Nucleated RBC (0.00-0.012) x10^3u/L Lymphocytes % (19.3-51.7) % Monocytes % (4.7-12.5) % Eosinophils % (0.7-5.8) % Basophils % (0.1-1.2) % Absolute Granulocytes (1.56-6.13) x10^3/uL Basophils # (0.01-0.08) x10^3/uL Sodium (135-145) mmol/L Potassium (3.5-5.1) mmol/L Chloride (98-107) mmol/L Carbon Dioxide (22-30) mmol/L Anion Gap (5-15) MEQ/L BUN (7-17) mg/dL Creatinine (0.52-1.04) mg/dL Estimated GFR ML/MIN Glucose (74-106) mg/dL POC Glucometer 173 H (74 to 106) mg/dL Lactic Acid (0.4-2.0) Calcium (8.4-10.2) mg/dL Total Bilirubin (0.2-1.3) mg/dL AST (14-36) U/L ALT (0-35) U/L Alkaline Phosphatase (38-126) U/L Serum Total Protein (6.3-8.2) g/dL Albumin (3.5-5.0) g/dL TSH 3rd Generation 0.890 (0.470-4.680) mIU/L Accuchecks Date 02/28/24 Time 21:00 - Radiology Impressions Radiology Exams & Impressions: Radiology Procedures Category Date Time Status ELBOW (MINIMUM 3 VIEWS) Stat Exams 02/28/24 13:41 Completed FEMUR Stat Exams 02/28/24 13:41 Completed HIP CONSTANZA (4V) INCL PELV IF DONE Stat Exams 02/28/24 13:42 Completed KNEE (1 OR 2 VIEW) Stat Exams 02/28/24 13:42 Completed LOWER LEG Stat Exams 02/28/24 13:42 Completed PELVIS WITHOUT CONTRAST [CT] Stat Exams 02/28/24 15:12 Completed SACRUM AND COCCYX Stat Exams 02/28/24 13:43 Completed Assessment/Plan (1) Acute on chronic renal failure Current Visit: No Status: Acute Assessment & Plan: Likely from prerenal azotemia in setting of KELSEY/diuretics - creatinine 3.2 with BUN 161 1. IVFs 2. Hold KELSEY/ARB, diuretics 3. Renal u/s 4. Check urine lytes, urine creatinine 5. Follow I/Os 6. Watch electrolytes, creatinine closely Code(s): N17.9 - ACUTE KIDNEY FAILURE, UNSPECIFIED; N18.9 - CHRONIC KIDNEY DISEASE, UNSPECIFIED (2) Hyponatremia Current Visit: Yes Status: Acute Assessment & Plan: Likely from hypovolemia versus SIADH 1. NS IVFs 2. Check urine lytes, urine osmo 3. Limit free water 4. Check TSh 5. Watch electrolytes closely - no need for hypertonic saline or tolvaptan Code(s): E87.1 - HYPO-OSMOLALITY AND HYPONATREMIA (3) Hypertensive chronic kidney disease with stage 1 through stage 4 chronic kidney disease, or unspecified chronic kidney disease Current Visit: Yes Status: Acute Assessment & Plan: BP under fairly good control to maintain SBp 1. Continue bp meds 2. Low Na diet 3. Watch electrolytes, kidney function closely Code(s): I12.9 - HYPERTENSIVE CHRONIC KIDNEY DISEASE W STG 1-4/UNSP CHR KDNY (4) Hypokalemia Current Visit: Yes Status: Acute Code(s): E87.6 - HYPOKALEMIA Telemedicine Encounter - Telemedicine Encounter Telemedicine Encounter: "The entirety of this encounter was performed via Telemedicine" This visit was performed using real-time audio and video connection between my location and thepatients locationwith the assistance of a surrogateat the patients location. Written or verbal consent was obtained from the patient/guardian to perform this visit usingsynchronoustelemedicine [email or web address]. Any patient questions regarding the telemedicine interaction were answered.
[2024-02-29 06:21] LABS: Absolute Neutrophil Ct (ANC) 9.18 x10^3/uL (1.56-6.13); BASOPHIL % 0.2 % (0.1-1.2); Basophil (Absolute #) 0.02 x10^3/uL (0.01-0.08); Eosinophil % 0.3 % (0.7-5.8); Eosinophil (Absolute #) 0.03 x10^3/uL (0.04-0.36); Hematocrit 35.2 % (34.1-44.9); Hemoglobin 11.2 g/dL (11.2-15.7); IMMATURE GRAN # 0.09 x10^3u/L (0.001-0.031); IMMATURE GRAN % 0.8 % (0.001-0.429); Lymphocyte (Absolute #) 0.74 x10^3/uL (1.18-3.74); Lymphocytes % 6.8 % (19.3-51.7); Mean Cell Volume 79.8 fL (79.4-94.8); Mean Corpuscular Hemoglobin 25.4 pg (25.6-32.2); Mean Corpuscular Hgb Concent. 31.8 g/dL (32.2-35.5); Mean Platelet Volume 10.8 fL (9.4-12.3); Monocyte (Absolute #) 0.89 x10^3/uL (0.24-0.86); Monocytes % 8.1 % (4.7-12.5); Neutrophil % 83.8 % (34.0-71.1); Platelet Count 280 x10^3/uL (182-369); Red Blood Count 4.41 x10^6/uL (3.93-5.22)
[2024-02-29 06:35] LABS: ALBUMIN 4.1 g/dL (3.5-5.0); ANION GAP 17.5 MEQ/L (5-15); BILIRUBIN,TOTAL 0.8 mg/dL (0.2-1.3); Creatinine 1 3.08 mg/dL (0.52-1.04); Total Protein 7.3 g/dL (6.3-8.2)
[2024-02-29 06:46] LABS: Potassium 2.9 mmol/L (3.5-5.1)
[2024-02-29] MEDS: POTASSIUM CHLORIDE 20 mEq IN WATER 100ML 100 ML IV SCH (08:33)
[2024-02-29] MEDS: Protonix 40MG Tablet PO SCH (08:33)
[2024-02-29] MEDS: Lopressor 50 MG PO SCH (08:33)
[2024-02-29] MEDS: DEXTROSE 5% -NACL 0.9% 1000 ML + KCl 20 MEQ 1,000 ML IV SCH (08:33)
[2024-02-29] MEDS: K-LYTE PO SCH (08:34)
[2024-02-29] MEDS: SYNTHROID 75 MCG PO SCH (08:34)
[2024-02-29] MEDS ORDERED: ENOXAPARIN SODIUM SQ SCH (10:00)
[2024-02-29] MEDS ORDERED: NON-FORMULARY ITEM (Metoprolol Tartrate [Metoprolol Tartrate] 75 MG Tablet) PO SCH (10:00)
--- NOTE | 2024-02-29 12:52 | PCM.NOTE ---
Date and Time: 02/29/24 1231 Subjective Assessment: 02/29/24 Ms. MIRANDA is a 88 year old female with a past medical history significant for left bells palsy ( with no recent changes per family, + left facial droop that is old), hypothyroidism, hypertension, hyperlipidemia, type II DM, arrhythmia, a-fib (on Eliquis), ovarian cancer, bowel obstruction, and mild CKD. She was recently release from rehab in [place]. She was brought to the hospital on 02/28/24 with increasing confusion, chest pressure, and shortness of breath. She was admitted with acute on chronic renal failure and hyponatremia and hypokalemia and IVF started and K+ replaced. She admits to a fall Friday with her walker wheel getting stuck in the door and admits to sitting on the floor for 2-3 hours until help arrived. She has a skiin tear of her left elbow and 2 skin tears of her right johnson. CPK ordered and pending. She states she does not have enough food and runs out monthly. Will have case management assist with this. she admits to not eating and drinking well and part of this was due to her sitting on the floors for hours on Friday. K= 2.9 and replaced this morning. Creat 3.08, anion gap 17.5, Na+ 127- IVF changed to D5NS with 2oKCL at 60ml/hr. Will recheck labs this evening. Spirolactone and torsemide held. Watch for fluid overload. Consider restarting meds tomorrow. No recent echo to review. Pt no longer in a-flutter as she was on admission, now in controlled a-fib, continue home meds. CT abd shows cystic mass, will order US for tomorrow for further eval uation. May need MRI for further evaluation. CT also shows possible discitis at L4-L5, however pt reports no pain in this region. She does have sacral pain and bruising from falling at home, XR sacrum and coxxyx negative for any acute concerns. She denies CP, SOB, Abd. pain, N/V/D. - Review of Systems Constitutional: No Fever, No Chills Eyes: No Symptoms Ears, Nose, & Throat: No Symptoms Respiratory: No Cough, No Short Of Breath Cardiac: No Chest Pain, No Edema, No Syncope Abdominal/Gastrointestinal: No Abdominal Pain, No Nausea, No Vomiting, No Diarrhea Genitourinary Symptoms: No Dysuria Musculoskeletal: No Back Pain, No Neck Pain Skin: Skin Lesions (skin tears of Left elbow and RLE), Other (bruising of coccyx), No Rash Neurological: No Dizziness, No Focal Weakness, No Sensory Changes Psychological: No Symptoms Endocrine: No Symptoms Hematologic/Lymphatic: No Symptoms Immunological/Allergic: No Symptoms Objective Exam General Appearance: no apparent distress, alert Neurologic Exam: alert, oriented x 3, cooperative, normal mood/affect, nml cerebellar function, sensation nml, No motor deficits Skin Exam: normal color, warm, dry, other (Skin tears of Left elbow and RLE x2, dressing applied to elbow. Coccyx bruising.) Wound Assessment: Skin/Wound Assessment Wound/Incision Assessment Start: 02/28/24 20:51 Text: Status: Active Freq: Q6H Protocol: Document 02/29/24 08:00 EK (Rec: 02/29/24 11:48 EK [id number]) Wound/Incision Assessment Left Buttock Wound Assessment Shift Assessment Wound Type Pressure Ulcer Wound Stage Stage II Drainage Amount None Comment BARRIER CREAM AND ASSISTANCE WITH REPOSITIONING Wound Photo Photo Taken No Eye Exam: PERRL, EOMI, eyes nml inspection Ears, Nose, Throat Exam: normal ENT inspection, pharynx normal, moist mucous membranes Neck Exam: normal inspection, non-tender, supple, full range of motion Respiratory Exam: normal breath sounds, lungs clear, No respiratory distress Cardiovascular Exam: normal heart sounds, irregular Gastrointestinal/Abdomen Exam: soft, No tenderness, No mass Extremity Exam: normal inspection, normal range of motion Back Exam: normal inspection, normal range of motion, No CVA tenderness, No vertebral tenderness Pelvic Exam: deferred Rectal Exam: deferred Objective Data Vital Signs: Vital Signs - 24 hr Temp Pulse Resp BP BP Pulse Ox 02/29/24 11:54 97.9 F 94 H 16 96/58 96 02/29/24 08:00 19 02/29/24 07:10 98.1 F 62 16 129/80 93 L 02/29/24 03:45 97.9 F 72 16 91/49 94 L 02/29/24 00:00 97.6 F 80 17 86/54 02/28/24 21:43 95 02/28/24 20:43 98.1 F 86 18 100/58 95 02/28/24 19:45 120/71 90 L 02/28/24 19:30 110/66 92 L 02/28/24 19:15 127/76 97 02/28/24 19:00 120/69 97 02/28/24 18:45 79 131/73 97 02/28/24 18:30 108/70 98 02/28/24 18:17 144/72 67 L 02/28/24 18:13 148/79 27 L 02/28/24 18:04 96 02/28/24 18:00 68 90 L 02/28/24 17:50 94 L 02/28/24 17:40 90 L 02/28/24 17:30 92 L 02/28/24 17:21 92 L 02/28/24 17:10 78 124/80 74 L 02/28/24 17:01 61 L 02/28/24 16:50 94 L 02/28/24 16:47 56 L 02/28/24 16:31 120/82 66 L 02/28/24 16:15 68 111/72 94 L 02/28/24 16:00 104/69 02/28/24 15:45 109/72 92 L 02/28/24 15:30 123/78 93 L 02/28/24 15:15 85 17 108/67 97 02/28/24 15:00 85 17 124/71 96 02/28/24 14:45 87 17 108/77 98 02/28/24 14:30 78 14 108/77 95 02/28/24 14:19 81 16 122/65 100 02/28/24 14:18 86 20 76 L 02/28/24 13:45 82 14 104/62 98 02/28/24 13:30 82 10 L 107/63 99 02/28/24 13:15 85 10 L 98/54 97 02/28/24 13:03 98.2 F 85 24 117/71 117/71 95 Pain Assessment - Last Documented Pain Intensity 0 Pain Scale Used FLACC Intake and Output: Intake & Output 02/27/24 02/28/24 02/29/24 03/01/24 11:59 11:59 11:59 11:59 Intake Total 560 Output Total 350 Balance 210 Weight 64.6 kg Lab Results: Lab Results-Last 24 Hours 02/28/24 02/28/24 02/28/24 Range/Units 16:24 16:50 16:50 WBC 13.8 H (3.98-10.04) x10^3/uL RBC 4.21 (3.93-5.22) x10^6/uL Hgb 10.7 L (11.2-15.7) g/dL Hct 32.5 L (34.1-44.9) % MCV 77.2 L (79.4-94.8) fL MCH 25.4 L (25.6-32.2) pg MCHC 32.9 (32.2-35.5) g/dL RDW 15.9 H (11.7-14.4) % Plt Count 266 (182-369) x10^3/uL MPV 10.2 (9.4-12.3) fL Gran % 87.6 H (34.0-71.1) % Immature Gran % (Auto) 0.9 H (0.001-0.429) % Nucleat RBC Rel Count 0.0 (0.00-0.2) % Eos # (Auto) 0 L (0.04-0.36) x10^3/uL Immature Gran # (Auto) 0.12 H (0.001-0.031) x10^3u/L Absolute Lymphs (auto) 0.69 L (1.18-3.74) x10^3/uL Absolute Monos (auto) 0.89 H (0.24-0.86) x10^3/uL Absolute Nucleated RBC 0.00 (0.00-0.012) x10^3u/L Lymphocytes % 5.0 L (19.3-51.7) % Monocytes % 6.4 (4.7-12.5) % Eosinophils % 0.0 L (0.7-5.8) % Basophils % 0.1 (0.1-1.2) % Absolute Granulocytes 12.08 H (1.56-6.13) x10^3/uL Basophils # 0.02 (0.01-0.08) x10^3/uL Sodium 127 L (135-145) mmol/L Potassium 3.2 L (3.5-5.1) mmol/L Chloride 84 L (98-107) mmol/L Carbon Dioxide 25 (22-30) mmol/L Anion Gap 21.2 H (5-15) MEQ/L BUN 161 H (7-17) mg/dL Creatinine 3.22 H (0.52-1.04) mg/dL Estimated GFR 13.2 ML/MIN Glucose 255 H (74-106) mg/dL POC Glucometer (74 to 106) mg/dL Lactic Acid 0.8 (0.4-2.0) Calcium 9.1 (8.4-10.2) mg/dL Magnesium (1.6-2.3) mg/dL Total Bilirubin 0.80 (0.2-1.3) mg/dL AST 23 (14-36) U/L ALT 19 (0-35) U/L Alkaline Phosphatase 85 (38-126) U/L Serum Total Protein 7.4 (6.3-8.2) g/dL Albumin 4.2 (3.5-5.0) g/dL TSH 3rd Generation (0.470-4.680) mIU/L 02/28/24 02/28/24 02/29/24 Range/Units 16:50 21:14 05:10 WBC 11.0 H (3.98-10.04) x10^3/uL RBC 4.41 (3.93-5.22) x10^6/uL Hgb 11.2 (11.2-15.7) g/dL Hct 35.2 (34.1-44.9) % MCV 79.8 (79.4-94.8) fL MCH 25.4 L (25.6-32.2) pg MCHC 31.8 L (32.2-35.5) g/dL RDW 16.0 H (11.7-14.4) % Plt Count 280 (182-369) x10^3/uL MPV 10.8 (9.4-12.3) fL Gran % 83.8 H (34.0-71.1) % Immature Gran % (Auto) 0.8 H (0.001-0.429) % Nucleat RBC Rel Count 0.0 (0.00-0.2) % Eos # (Auto) 0.03 L (0.04-0.36) x10^3/uL Immature Gran # (Auto) 0.09 H (0.001-0.031) x10^3u/L Absolute Lymphs (auto) 0.74 L (1.18-3.74) x10^3/uL Absolute Monos (auto) 0.89 H (0.24-0.86) x10^3/uL Absolute Nucleated RBC 0.00 (0.00-0.012) x10^3u/L Lymphocytes % 6.8 L (19.3-51.7) % Monocytes % 8.1 (4.7-12.5) % Eosinophils % 0.3 L (0.7-5.8) % Basophils % 0.2 (0.1-1.2) % Absolute Granulocytes 9.18 H (1.56-6.13) x10^3/uL Basophils # 0.02 (0.01-0.08) x10^3/uL Sodium (135-145) mmol/L Potassium (3.5-5.1) mmol/L Chloride (98-107) mmol/L Carbon Dioxide (22-30) mmol/L Anion Gap (5-15) MEQ/L BUN (7-17) mg/dL Creatinine (0.52-1.04) mg/dL Estimated GFR ML/MIN Glucose (74-106) mg/dL POC Glucometer 173 H (74 to 106) mg/dL Lactic Acid (0.4-2.0) Calcium (8.4-10.2) mg/dL Magnesium (1.6-2.3) mg/dL Total Bilirubin (0.2-1.3) mg/dL AST (14-36) U/L ALT (0-35) U/L Alkaline Phosphatase (38-126) U/L Serum Total Protein (6.3-8.2) g/dL Albumin (3.5-5.0) g/dL TSH 3rd Generation 0.890 (0.470-4.680) mIU/L 02/29/24 02/29/24 02/29/24 Range/Units 05:10 05:10 07:38 WBC (3.98-10.04) x10^3/uL RBC (3.93-5.22) x10^6/uL Hgb (11.2-15.7) g/dL Hct (34.1-44.9) % MCV (79.4-94.8) fL MCH (25.6-32.2) pg MCHC (32.2-35.5) g/dL RDW (11.7-14.4) % Plt Count (182-369) x10^3/uL MPV (9.4-12.3) fL Gran % (34.0-71.1) % Immature Gran % (Auto) (0.001-0.429) % Nucleat RBC Rel Count (0.00-0.2) % Eos # (Auto) (0.04-0.36) x10^3/uL Immature Gran # (Auto) (0.001-0.031) x10^3u/L Absolute Lymphs (auto) (1.18-3.74) x10^3/uL Absolute Monos (auto) (0.24-0.86) x10^3/uL Absolute Nucleated RBC (0.00-0.012) x10^3u/L Lymphocytes % (19.3-51.7) % Monocytes % (4.7-12.5) % Eosinophils % (0.7-5.8) % Basophils % (0.1-1.2) % Absolute Granulocytes (1.56-6.13) x10^3/uL Basophils # (0.01-0.08) x10^3/uL Sodium 127 L (135-145) mmol/L Potassium 2.9 L* (3.5-5.1) mmol/L Chloride 82 L (98-107) mmol/L Carbon Dioxide 30 (22-30) mmol/L Anion Gap 17.5 H (5-15) MEQ/L BUN 156 H (7-17) mg/dL Creatinine 3.08 H (0.52-1.04) mg/dL Estimated GFR 14.0 ML/MIN Glucose 174 H (74-106) mg/dL POC Glucometer 181 H (74 to 106) mg/dL Lactic Acid (0.4-2.0) Calcium 9.0 (8.4-10.2) mg/dL Magnesium 2.7 H (1.6-2.3) mg/dL Total Bilirubin 0.80 (0.2-1.3) mg/dL AST 24 (14-36) U/L ALT 18 (0-35) U/L Alkaline Phosphatase 80 (38-126) U/L Serum Total Protein 7.3 (6.3-8.2) g/dL Albumin 4.1 (3.5-5.0) g/dL TSH 3rd Generation (0.470-4.680) mIU/L 02/29/24 02/29/24 Range/Units 11:37 11:37 WBC (3.98-10.04) x10^3/uL RBC (3.93-5.22) x10^6/uL Hgb (11.2-15.7) g/dL Hct (34.1-44.9) % MCV (79.4-94.8) fL MCH (25.6-32.2) pg MCHC (32.2-35.5) g/dL RDW (11.7-14.4) % Plt Count (182-369) x10^3/uL MPV (9.4-12.3) fL Gran % (34.0-71.1) % Immature Gran % (Auto) (0.001-0.429) % Nucleat RBC Rel Count (0.00-0.2) % Eos # (Auto) (0.04-0.36) x10^3/uL Immature Gran # (Auto) (0.001-0.031) x10^3u/L Absolute Lymphs (auto) (1.18-3.74) x10^3/uL Absolute Monos (auto) (0.24-0.86) x10^3/uL Absolute Nucleated RBC (0.00-0.012) x10^3u/L Lymphocytes % (19.3-51.7) % Monocytes % (4.7-12.5) % Eosinophils % (0.7-5.8) % Basophils % (0.1-1.2) % Absolute Granulocytes (1.56-6.13) x10^3/uL Basophils # (0.01-0.08) x10^3/uL Sodium (135-145) mmol/L Potassium (3.5-5.1) mmol/L Chloride (98-107) mmol/L Carbon Dioxide (22-30) mmol/L Anion Gap (5-15) MEQ/L BUN (7-17) mg/dL Creatinine (0.52-1.04) mg/dL Estimated GFR ML/MIN Glucose (74-106) mg/dL POC Glucometer 292 H 292 H (74 to 106) mg/dL Lactic Acid (0.4-2.0) Calcium (8.4-10.2) mg/dL Magnesium (1.6-2.3) mg/dL Total Bilirubin (0.2-1.3) mg/dL AST (14-36) U/L ALT (0-35) U/L Alkaline Phosphatase (38-126) U/L Serum Total Protein (6.3-8.2) g/dL Albumin (3.5-5.0) g/dL TSH 3rd Generation (0.470-4.680) mIU/L Radiology Exams: Radiology Procedures Category Date Time Status ELBOW (MINIMUM 3 VIEWS) Stat Exams 02/28/24 13:41 Completed FEMUR Stat Exams 02/28/24 13:41 Completed HIP CONSTANZA (4V) INCL PELV IF DONE Stat Exams 02/28/24 13:42 Completed KNEE (1 OR 2 VIEW) Stat Exams 02/28/24 13:42 Completed LOWER LEG Stat Exams 02/28/24 13:42 Completed PELVIS WITHOUT CONTRAST [CT] Stat Exams 02/28/24 15:12 Completed SACRUM AND COCCYX Stat Exams 02/28/24 13:43 Completed Assessment/Plan (1) Atrial fibrillation Current Visit: Yes Status: Chronic Assessment & Plan: - Chronic- continue home meds, Eliquis, metoprolol - no recent echo to review - Spironolactone and Torseimide held d/t LIZZETH Code(s): I48.91 - UNSPECIFIED ATRIAL FIBRILLATION (2) Fall from ground level Current Visit: Yes Status: Acute Assessment & Plan: - Friday pt fell - Fall 2:2 walker wheel stuck in door - + skin tears - PT/OT - CPK- pending - radiology records reviewed - Tylenol PRN pain Code(s): W18.30XA - FALL ON SAME LEVEL, UNSPECIFIED, INITIAL ENCOUNTER (3) Dehydration Current Visit: Yes Status: Acute Assessment & Plan: - anion gap improved today 17.5 - IVF Code(s): E86.0 - DEHYDRATION (4) Hypermagnesemia Current Visit: Yes Status: Acute Assessment & Plan: - Mg+ 2.7- monitor - should decrease with IVF - Tele Code(s): E83.41 - HYPERMAGNESEMIA (5) Skin tear of left elbow without complication Current Visit: Yes Status: Acute Assessment & Plan: - Dressing applied - XR reviewed- non-concerning Code(s): S51.012A - LACERATION WITHOUT FOREIGN BODY OF LEFT ELBOW, INIT ENCNTR (6) Skin tear of right lower leg without complication Current Visit: Yes Status: Acute Assessment & Plan: - Right skin, skin tears x2 - No edema or erythema - Bacitracin BID RLE - radiology records reviewed- non-concerning Code(s): S81.811A - LACERATION W/O FOREIGN BODY, RIGHT LOWER LEG, INIT ENCNTR (7) Coccyx pain Current Visit: Yes Status: Acute Assessment & Plan: - + Bruising - Sacrum and coxxyx XR: 02/27 2 AP views sacrum/coccyx demonstrates osteopenia, moderate lower lumbar degenerative changes, mild left hip degenerative changes, and extensive scattered vascular calcifications. No other bony, articular, or soft tissue abnormalities. Code(s): M53.3 - SACROCOCCYGEAL DISORDERS, NOT ELSEWHERE CLASSIFIED (8) Atrial flutter Current Visit: Yes Status: Resolved Assessment & Plan: - resolved since admission - In a-fib which is chronic - see afib plan of care Code(s): I48.92 - UNSPECIFIED ATRIAL FLUTTER (9) Hypertensive chronic kidney disease with stage 1 through stage 4 chronic kidney disease, or unspecified chronic kidney disease Current Visit: Yes Status: Acute Assessment & Plan: - Creat 3.08, baseline 1.68 - IVF - BP stable - continue home meds - Spironolactone and Torseimide held d/t LIZZETH Code(s): I12.9 - HYPERTENSIVE CHRONIC KIDNEY DISEASE W STG 1-4/UNSP CHR KDNY (10) Hypokalemia Current Visit: Yes Status: Acute Assessment & Plan: - K+ 2.9- replaced- trend- recheck this afternoon - IVF with KCL - Tele Code(s): E87.6 - HYPOKALEMIA (11) Hyponatremia Current Visit: Yes Status: Acute Assessment & Plan: - Na+ 127 - IVF changed to D5NS with 20KCL at 60ml/hr - Trend- recheck this afternoon at 1400 Code(s): E87.1 - HYPO-OSMOLALITY AND HYPONATREMIA (12) Ovarian mass, right Current Visit: Yes Status: Acute Assessment & Plan: - Hx of ovarian CA - Pelvis CT IMPRESSION: 1. No evidence of acute pathology or sacrum/coccyx fractures. 2. Right ovarian cystic mass measuring 7.4x6.1 cm noted. An MRI scan is advised for future assessment. 3. Umbilical region cystic mass measuring 2.0x4.0 cm noted. The US advised for future assessment. 4. Marked lumbar spondylosis with endplate sclerosis and irregularity at L4-L5 level, for MRI lumbar spine with contrast correlation to rule out the possibility of discitis. - Consider MRI after US tomorrow Code(s): N83.8 - OTH NONINFLAMMATORY DISORD OF OVARY, FALLOP AND BROAD LIGMT (13) Type 2 diabetes mellitus Current Visit: Yes Status: Chronic Assessment & Plan: - A1C 01/11/24 6.60 - Accuchecks ac/hs - Humalog S/S (14) Acute on chronic renal failure Current Visit: No Status: Acute Assessment & Plan: - Creat 3.08, Baseline 1.68 - 2:2 dehydration - IVF - - Spironolactone and Torseimide held d/t LIZZETH Code(s): N17.9 - ACUTE KIDNEY FAILURE, UNSPECIFIED; N18.9 - CHRONIC KIDNEY DISEASE, UNSPECIFIED (15) Hyperlipidemia Current Visit: No Status: Chronic Assessment & Plan: - Continue statin - Lipid panel from 01/11/24- reviewed Code(s): E78.5 - HYPERLIPIDEMIA, UNSPECIFIED (16) Ovarian cancer Current Visit: No Status: Chronic Assessment & Plan: - HX of - CT pelvis 02/27 IMPRESSION: 1. No evidence of acute pathology or sacrum/coccyx fractures. 2. Right ovarian cystic mass measuring 7.4x6.1 cm noted. An MRI scan is advised for future assessment. 3. Umbilical region cystic mass measuring 2.0x4.0 cm noted. The US advised for future assessment. 4. Marked lumbar spondylosis with endplate sclerosis and irregularity at L4-L5 level, for MRI lumbar spine with contrast correlation to rule out the possibility of discitis. 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 VTE: Eliquis PPI: Pepcid Next of KIN: Mary Grace Miranda [phone] D/C plan: 1-2 days Code status: Full
[2024-02-29] MEDS ORDERED: Pain Relieving Rub TOP SCH (14:00)
[2024-02-29] MEDS: Pain Relieving Rub TOP PRN (14:36)
[2024-02-29 17:50] LABS: ALBUMIN 3.6 g/dL (3.5-5.0); ANION GAP 18.5 MEQ/L (5-15); BILIRUBIN,TOTAL 0.6 mg/dL (0.2-1.3); Calcium 8.5 mg/dL (8.4-10.2); Creatinine 1 3.1 mg/dL (0.52-1.04); EST GLOMERULAR FILTRATION RATE 13.9 ML/MIN; MAGNESIUM 2.5 mg/dL (1.6-2.3); Potassium 5.2 mmol/L (3.5-5.1); Total Protein 6.4 g/dL (6.3-8.2)
[2024-02-29] MEDS: Dextrose 5%-NS IV Solution 1000 ML 1,000 ML IV SCH (18:29)
--- NOTE | 2024-02-29 19:30 | XRAY ---
Indication: CHF. Comparison: None PA/lateral chest hyperinflated with minimal right lung base subsegmental atelectasis/scarring. Remaining lungs clear. Heart borderline enlarged with arteriosclerotic aorta. Vascularity normal. Bony thorax intact with osteopenia and mild degenerative changes. Impression: Borderline cardiomegaly. Right lung base atelectasis/scarring. Negative for acute pneumonic process or CHF.
[2024-02-29 20:28] LABS: Appearance Clear (Clear); Bacteria None Seen /HPF (None Seen); Bilirubin Negative (Negative); Blood Negative (Negative); Epithelial Cells None Seen /HPF (None Seen); Glucose, Urine Negative (Negative); Ketones Negative (Negative); Leukocyte Esterase Trace (Negative); Nitrite Negative (Negative); Ph 6.5 (4.6-8.0); Protein,Urine Dip Negative (Negative); RBC 0-2 /HPF (0-5); Urobilinogen 0.2 mg/dL (0.2)
[2024-02-29 20:31] LABS: ADD URINE CULTURE? NO (NO)
[2024-02-29] MEDS ORDERED: NON-FORMULARY ITEM (Atorvastatin Calcium [Atorvastatin Calcium] 20 MG Tablet) PO SCH (22:00)
[2024-02-29] MEDS: BACIGUENT PACKET TP SCH (22:47)
[2024-03-01 04:42] LABS: Hematocrit 28.4 % (34.1-44.9); Hemoglobin 9.2 g/dL (11.2-15.7); Mean Cell Volume 78.2 fL (79.4-94.8); Mean Corpuscular Hemoglobin 25.3 pg (25.6-32.2); Mean Corpuscular Hgb Concent. 32.4 g/dL (32.2-35.5); Mean Platelet Volume 10.8 fL (9.4-12.3); Platelet Count 235 x10^3/uL (182-369); Red Blood Count 3.63 x10^6/uL (3.93-5.22); Red Cell Distribution Width 16.1 % (11.7-14.4); White Blood Count 10.4 x10^3/uL (3.98-10.04)
[2024-03-01 05:04] LABS: ALBUMIN 3.5 g/dL (3.5-5.0); ANION GAP 13.7 MEQ/L (5-15); BILIRUBIN,TOTAL 0.4 mg/dL (0.2-1.3); Calcium 8.4 mg/dL (8.4-10.2); Creatinine 1 3.19 mg/dL (0.52-1.04); EST GLOMERULAR FILTRATION RATE 13.4 ML/MIN; MAGNESIUM 2.5 mg/dL (1.6-2.3); Potassium 3.9 mmol/L (3.5-5.1); Total Protein 6.3 g/dL (6.3-8.2)
--- NOTE | 2024-03-01 05:18 | PCM.NOTE ---
Date and Time: 03/01/24512 Subjective Assessment: Ms. Miranda is an 88 year old female with a pmhx of HLD, HTN, DMII, ovarian mass (follows with Dr. Marie), AFIB (Eliquis), and hypothyroidism admitted 02/28/24 for a ground level Fall that occurred 02/27/24 after the wheels of her walker got stuck in the door. She is also admitted with acute on chronic renal failure/ hyponatremia/ and hypokalemia. Aflutter on admission. Xrays with no acute fractures or dislocations. CT pelvis with no acute fractures. Of note - imaging does show a right ovarian cystic mass measuring 7.4x6.1 cm -known to family. Patient does see oncology OP with previous w/u including PET scan in July 2023 indicating benign process. Also noted is an Umbilical region cystic mass measuring 2.0x4.0 cm. Abdominal US showing Marked lumbar spondylosis with endplate sclerosis and irregularity at L4-L5. CT also shows possible discitis at L4-L5, however pt reports no pain in this region. MRI ordered and pending. Labs with hyponatremia/hyperkalemia/hypermagnesmia. 03/01/24: Met with patient bedside. A&O x 3 today. Endorses pain has improved. Patient does live alone and she reports continued weakness. Will have her work with PT today. Discussed labs. Patient unable to provide information on claims adjudicator she sees outpatient. I did call Mary Grace at patient's request with no answer. Creat has no improved much with fluid challenge. Will have nephrology consulted. Plan for MRI. <ELI BUTTS - Last Filed: 03/01/24 10:46> Date and Time: 03/01/242106 <KENTRELL ARAUJO - Last Filed: 03/01/24 21:10> - Review of Systems Constitutional: Weakness Eyes: No Symptoms Ears, Nose, & Throat: No Symptoms Respiratory: No Symptoms Cardiac: No Symptoms Abdominal/Gastrointestinal: No Symptoms Genitourinary Symptoms: No Symptoms Musculoskeletal: No Symptoms Skin: No Symptoms Neurological: No Symptoms Psychological: No Symptoms Endocrine: No Symptoms Hematologic/Lymphatic: No Symptoms Immunological/Allergic: No Symptoms <ELI BUTTS - Last Filed: 03/01/24 10:46> Objective Exam General Appearance: no apparent distress Neurologic Exam: alert, oriented x 3, cooperative Skin Exam: normal color Wound Assessment: Skin/Wound Assessment Wound/Incision Assessment Start: 02/28/24 20:51 Text: Status: Active Freq: Q6H Protocol: Document 03/01/24 04:00 TC (Rec: 03/01/24 04:25 TC [id number]) Wound/Incision Assessment Left Elbow Wound Assessment Shift Assessment Wound Type Skin Tear Wound Stage Non Pressure Wound Dressing Status Changed Primary Dressing MEPILEX BORDER DRESSING Comment dressing and stockinette applied by day shift, CDI Left Buttock Wound Assessment Shift Assessment Wound Type Pressure Ulcer Wound Stage Stage II Drainage Amount None Comment turning and respositioning pt, applying barrier cream Wound Photo Photo Taken No Eye Exam: PERRL Ears, Nose, Throat Exam: normal ENT inspection Neck Exam: normal inspection Respiratory Exam: normal breath sounds, lungs clear Cardiovascular Exam: regular rate/rhythm, normal heart sounds Gastrointestinal/Abdomen Exam: soft, normal bowel sounds Extremity Exam: normal inspection Back Exam: normal inspection Pelvic Exam: deferred Rectal Exam: deferred <ELI BUTTS - Last Filed: 03/01/24 10:46> Wound Assessment: Skin/Wound Assessment Wound/Incision Assessment Start: 02/28/24 20:51 Text: Status: Active Freq: Q6H Protocol: Document 03/01/24 16:00 RF (Rec: 03/01/24 17:00 RF [id number]) Wound/Incision Assessment Left Elbow Wound Assessment Shift Assessment Wound Type Skin Tear Wound Stage Non Pressure Wound Dressing Status Changed Primary Dressing MEPILEX BORDER DRESSING Comment dressing and stockinette CDI Left Buttock Wound Assessment Shift Assessment Wound Type Pressure Ulcer Wound Stage Stage II Drainage Amount None Wound Photo Photo Taken No <KENTRELL ARAUJO - Last Filed: 03/01/24 21:10> Objective Data Vital Signs: Vital Signs - 24 hr Temp Pulse Resp BP Pulse Ox 03/01/24 04:00 97.8 F 91 H 16 122/55 02/29/24 23:50 97.9 F 85 18 106/52 02/29/24 21:02 93 L 02/29/24 19:36 97.7 F 90 15 104/54 93 L 02/29/24 18:50 20 02/29/24 16:32 96 02/29/24 16:00 97.9 F 94 H 21 128/59 97 02/29/24 12:00 21 02/29/24 11:54 97.9 F 94 H 16 96/58 96 02/29/24 08:00 19 02/29/24 07:10 98.1 F 62 16 129/80 93 L Pain Assessment - Last Documented Pain Intensity 2 Pain Scale Used [facility] Intake and Output: Intake & Output 02/27/24 02/28/24 02/29/24 03/01/24 11:59 11:59 11:59 11:59 Intake Total 560 2303 Output Total 350 300 Balance 210 2002 Weight 64.6 kg Lab Results: Lab Results-Last 24 Hours 02/29/24 02/29/24 02/29/24 Range/Units 05:10 05:10 05:10 WBC 11.0 H (3.98-10.04) x10^3/uL RBC 4.41 (3.93-5.22) x10^6/uL Hgb 11.2 (11.2-15.7) g/dL Hct 35.2 (34.1-44.9) % MCV 79.8 (79.4-94.8) fL MCH 25.4 L (25.6-32.2) pg MCHC 31.8 L (32.2-35.5) g/dL RDW 16.0 H (11.7-14.4) % Plt Count 280 (182-369) x10^3/uL MPV 10.8 (9.4-12.3) fL Gran % 83.8 H (34.0-71.1) % Immature Gran % (Auto) 0.8 H (0.001-0.429) % Nucleat RBC Rel Count 0.0 (0.00-0.2) % Eos # (Auto) 0.03 L (0.04-0.36) x10^3/uL Immature Gran # (Auto) 0.09 H (0.001-0.031) x10^3u/L Absolute Lymphs (auto) 0.74 L (1.18-3.74) x10^3/uL Absolute Monos (auto) 0.89 H (0.24-0.86) x10^3/uL Absolute Nucleated RBC 0.00 (0.00-0.012) x10^3u/L Lymphocytes % 6.8 L (19.3-51.7) % Monocytes % 8.1 (4.7-12.5) % Eosinophils % 0.3 L (0.7-5.8) % Basophils % 0.2 (0.1-1.2) % Absolute Granulocytes 9.18 H (1.56-6.13) x10^3/uL Basophils # 0.02 (0.01-0.08) x10^3/uL Sodium 127 L (135-145) mmol/L Potassium 2.9 L* (3.5-5.1) mmol/L Chloride 82 L (98-107) mmol/L Carbon Dioxide 30 (22-30) mmol/L Anion Gap 17.5 H (5-15) MEQ/L BUN 156 H (7-17) mg/dL Creatinine 3.08 H (0.52-1.04) mg/dL Estimated GFR 14.0 ML/MIN Glucose 174 H (74-106) mg/dL POC Glucometer (74 to 106) mg/dL Calcium 9.0 (8.4-10.2) mg/dL Magnesium 2.7 H (1.6-2.3) mg/dL Total Bilirubin 0.80 (0.2-1.3) mg/dL AST 24 (14-36) U/L ALT 18 (0-35) U/L Alkaline Phosphatase 80 (38-126) U/L Creatine Kinase (30-135) U/L Serum Total Protein 7.3 (6.3-8.2) g/dL Albumin 4.1 (3.5-5.0) g/dL Urine Color (Yellow) Urine Appearance (Clear) Urine pH (4.6-8.0) Ur Specific [place] (1.005-1.030) Urine Protein (Negative) Urine Glucose (UA) (Negative) mg/dL Urine Ketones (Negative) Urine Blood (Negative) Urine Nitrite (Negative) Urine Bilirubin (Negative) Urine Urobilinogen (0.2) mg/dL Ur Leukocyte Esterase (Negative) U Hyaline Cast (Auto) (0-2) /LPF Urine Microscopic RBC (0-5) /HPF Urine Microscopic WBC (0-5) /HPF Ur Epithelial Cells (None Seen) /HPF Urine Bacteria (None Seen) /HPF Urine Culture Reflexed (NO) 02/29/24 02/29/24 02/29/24 Range/Units 07:38 11:37 11:37 WBC (3.98-10.04) x10^3/uL RBC (3.93-5.22) x10^6/uL Hgb (11.2-15.7) g/dL Hct (34.1-44.9) % MCV (79.4-94.8) fL MCH (25.6-32.2) pg MCHC (32.2-35.5) g/dL RDW (11.7-14.4) % Plt Count (182-369) x10^3/uL MPV (9.4-12.3) fL Gran % (34.0-71.1) % Immature Gran % (Auto) (0.001-0.429) % Nucleat RBC Rel Count (0.00-0.2) % Eos # (Auto) (0.04-0.36) x10^3/uL Immature Gran # (Auto) (0.001-0.031) x10^3u/L Absolute Lymphs (auto) (1.18-3.74) x10^3/uL Absolute Monos (auto) (0.24-0.86) x10^3/uL Absolute Nucleated RBC (0.00-0.012) x10^3u/L Lymphocytes % (19.3-51.7) % Monocytes % (4.7-12.5) % Eosinophils % (0.7-5.8) % Basophils % (0.1-1.2) % Absolute Granulocytes (1.56-6.13) x10^3/uL Basophils # (0.01-0.08) x10^3/uL Sodium (135-145) mmol/L Potassium (3.5-5.1) mmol/L Chloride (98-107) mmol/L Carbon Dioxide (22-30) mmol/L Anion Gap (5-15) MEQ/L BUN (7-17) mg/dL Creatinine (0.52-1.04) mg/dL Estimated GFR ML/MIN Glucose (74-106) mg/dL POC Glucometer 181 H 292 H 292 H (74 to 106) mg/dL Calcium (8.4-10.2) mg/dL Magnesium (1.6-2.3) mg/dL Total Bilirubin (0.2-1.3) mg/dL AST (14-36) U/L ALT (0-35) U/L Alkaline Phosphatase (38-126) U/L Creatine Kinase (30-135) U/L Serum Total Protein (6.3-8.2) g/dL Albumin (3.5-5.0) g/dL Urine Color (Yellow) Urine Appearance (Clear) Urine pH (4.6-8.0) Ur Specific [place] (1.005-1.030) Urine Protein (Negative) Urine Glucose (UA) (Negative) mg/dL Urine Ketones (Negative) Urine Blood (Negative) Urine Nitrite (Negative) Urine Bilirubin (Negative) Urine Urobilinogen (0.2) mg/dL Ur Leukocyte Esterase (Negative) U Hyaline Cast (Auto) (0-2) /LPF Urine Microscopic RBC (0-5) /HPF Urine Microscopic WBC (0-5) /HPF Ur Epithelial Cells (None Seen) /HPF Urine Bacteria (None Seen) /HPF Urine Culture Reflexed (NO) 02/29/24 02/29/24 02/29/24 Range/Units 16:19 17:15 20:21 WBC (3.98-10.04) x10^3/uL RBC (3.93-5.22) x10^6/uL Hgb (11.2-15.7) g/dL Hct (34.1-44.9) % MCV (79.4-94.8) fL MCH (25.6-32.2) pg MCHC (32.2-35.5) g/dL RDW (11.7-14.4) % Plt Count (182-369) x10^3/uL MPV (9.4-12.3) fL Gran % (34.0-71.1) % Immature Gran % (Auto) (0.001-0.429) % Nucleat RBC Rel Count (0.00-0.2) % Eos # (Auto) (0.04-0.36) x10^3/uL Immature Gran # (Auto) (0.001-0.031) x10^3u/L Absolute Lymphs (auto) (1.18-3.74) x10^3/uL Absolute Monos (auto) (0.24-0.86) x10^3/uL Absolute Nucleated RBC (0.00-0.012) x10^3u/L Lymphocytes % (19.3-51.7) % Monocytes % (4.7-12.5) % Eosinophils % (0.7-5.8) % Basophils % (0.1-1.2) % Absolute Granulocytes (1.56-6.13) x10^3/uL Basophils # (0.01-0.08) x10^3/uL Sodium 128 L (135-145) mmol/L Potassium 5.2 H D (3.5-5.1) mmol/L Chloride 86 L (98-107) mmol/L Carbon Dioxide 29 (22-30) mmol/L Anion Gap 18.5 H (5-15) MEQ/L BUN 156 H (7-17) mg/dL Creatinine 3.10 H (0.52-1.04) mg/dL Estimated GFR 13.9 ML/MIN Glucose 213 H (74-106) mg/dL POC Glucometer 198 H (74 to 106) mg/dL Calcium 8.5 (8.4-10.2) mg/dL Magnesium 2.5 H (1.6-2.3) mg/dL Total Bilirubin 0.60 (0.2-1.3) mg/dL AST 25 (14-36) U/L ALT 22 (0-35) U/L Alkaline Phosphatase 71 (38-126) U/L Creatine Kinase 58 (30-135) U/L Serum Total Protein 6.4 (6.3-8.2) g/dL Albumin 3.6 (3.5-5.0) g/dL Urine Color Yellow (Yellow) Urine Appearance Clear (Clear) Urine pH 6.5 (4.6-8.0) Ur Specific [place] 1.010 (1.005-1.030) Urine Protein Negative (Negative) Urine Glucose (UA) Negative (Negative) mg/dL Urine Ketones Negative (Negative) Urine Blood Negative (Negative) Urine Nitrite Negative (Negative) Urine Bilirubin Negative (Negative) Urine Urobilinogen 0.2 (0.2) mg/dL Ur Leukocyte Esterase Trace A (Negative) U Hyaline Cast (Auto) 3-5 A (0-2) /LPF Urine Microscopic RBC 0-2 (0-5) /HPF Urine Microscopic WBC 3-5 (0-5) /HPF Ur Epithelial Cells None Seen (None Seen) /HPF Urine Bacteria None Seen (None Seen) /HPF Urine Culture Reflexed NO (NO) 02/29/24 03/01/24 Range/Units 20:36 04:37 WBC 10.4 H (3.98-10.04) x10^3/uL RBC 3.63 L (3.93-5.22) x10^6/uL Hgb 9.2 L (11.2-15.7) g/dL Hct 28.4 L (34.1-44.9) % MCV 78.2 L (79.4-94.8) fL MCH 25.3 L (25.6-32.2) pg MCHC 32.4 (32.2-35.5) g/dL RDW 16.1 H (11.7-14.4) % Plt Count 235 (182-369) x10^3/uL MPV 10.8 (9.4-12.3) fL Gran % (34.0-71.1) % Immature Gran % (Auto) (0.001-0.429) % Nucleat RBC Rel Count (0.00-0.2) % Eos # (Auto) (0.04-0.36) x10^3/uL Immature Gran # (Auto) (0.001-0.031) x10^3u/L Absolute Lymphs (auto) (1.18-3.74) x10^3/uL Absolute Monos (auto) (0.24-0.86) x10^3/uL Absolute Nucleated RBC (0.00-0.012) x10^3u/L Lymphocytes % (19.3-51.7) % Monocytes % (4.7-12.5) % Eosinophils % (0.7-5.8) % Basophils % (0.1-1.2) % Absolute Granulocytes (1.56-6.13) x10^3/uL Basophils # (0.01-0.08) x10^3/uL Sodium (135-145) mmol/L Potassium (3.5-5.1) mmol/L Chloride (98-107) mmol/L Carbon Dioxide (22-30) mmol/L Anion Gap (5-15) MEQ/L BUN (7-17) mg/dL Creatinine (0.52-1.04) mg/dL Estimated GFR ML/MIN Glucose (74-106) mg/dL POC Glucometer 246 H (74 to 106) mg/dL Calcium (8.4-10.2) mg/dL Magnesium (1.6-2.3) mg/dL Total Bilirubin (0.2-1.3) mg/dL AST (14-36) U/L ALT (0-35) U/L Alkaline Phosphatase (38-126) U/L Creatine Kinase (30-135) U/L Serum Total Protein (6.3-8.2) g/dL Albumin (3.5-5.0) g/dL Urine Color (Yellow) Urine Appearance (Clear) Urine pH (4.6-8.0) Ur Specific [place] (1.005-1.030) Urine Protein (Negative) Urine Glucose (UA) (Negative) mg/dL Urine Ketones (Negative) Urine Blood (Negative) Urine Nitrite (Negative) Urine Bilirubin (Negative) Urine Urobilinogen (0.2) mg/dL Ur Leukocyte Esterase (Negative) U Hyaline Cast (Auto) (0-2) /LPF Urine Microscopic RBC (0-5) /HPF Urine Microscopic WBC (0-5) /HPF Ur Epithelial Cells (None Seen) /HPF Urine Bacteria (None Seen) /HPF Urine Culture Reflexed (NO) Radiology Exams: Radiology Procedures Category Date Time Status CHEST 2 VIEWS (PA AND LAT) Routine Exams 02/29/24 18:41 Completed ELBOW (MINIMUM 3 VIEWS) Stat Exams 02/28/24 13:41 Completed FEMUR Stat Exams 02/28/24 13:41 Completed HIP CONSTANZA (4V) INCL PELV IF DONE Stat Exams 02/28/24 13:42 Completed KNEE (1 OR 2 VIEW) Stat Exams 02/28/24 13:42 Completed LOWER LEG Stat Exams 02/28/24 13:42 Completed PELVIS WITHOUT CONTRAST [CT] Stat Exams 02/28/24 15:12 Completed SACRUM AND COCCYX Stat Exams 02/28/24 13:43 Completed US ABDOMEN LIMITED [ABDOMINAL-LIMITED] [US] Routine Exams 03/01/24 08:00 Ordered US ABDOMEN LIMITED [ABDOMINAL-LIMITED] [US] Routine Exams 03/02/24 08:00 Stop Req <ELI BUTTS - Last Filed: 03/01/24 10:46> Vital Signs: Vital Signs - 24 hr Temp Pulse Resp BP Pulse Ox 03/01/24 19:59 97.7 F 97 H 18 115/57 96 03/01/24 19:00 92 H 03/01/24 18:41 94 L 03/01/24 18:00 16 03/01/24 16:00 97.5 F 92 H 18 99/52 94 L 03/01/24 14:00 18 03/01/24 12:00 97.5 F 86 18 107/72 96 03/01/24 07:09 97 03/01/24 07:08 97.6 F 92 H 12 101/51 97 03/01/24 04:00 97.8 F 91 H 16 122/55 02/29/24 23:50 97.9 F 85 18 106/52 Pain Assessment - Last Documented Pain Intensity 0 Pain Scale Used [facility] Intake and Output: Intake & Output 02/28/24 02/29/24 03/01/24 03/02/24 11:59 11:59 11:59 11:59 Intake Total 560 2303 360 Output Total 350 300 Balance 210 2002 360 Weight 64.6 kg 64.6 kg Lab Results: Lab Results-Last 24 Hours 03/01/24 03/01/24 03/01/24 Range/Units 04:37 04:37 06:48 WBC 10.4 H (3.98-10.04) x10^3/uL RBC 3.63 L (3.93-5.22) x10^6/uL Hgb 9.2 L (11.2-15.7) g/dL Hct 28.4 L (34.1-44.9) % MCV 78.2 L (79.4-94.8) fL MCH 25.3 L (25.6-32.2) pg MCHC 32.4 (32.2-35.5) g/dL RDW 16.1 H (11.7-14.4) % Plt Count 235 (182-369) x10^3/uL MPV 10.8 (9.4-12.3) fL Sodium 129 L (135-145) mmol/L Potassium 3.9 D (3.5-5.1) mmol/L Chloride 90 L (98-107) mmol/L Carbon Dioxide 29 (22-30) mmol/L Anion Gap 13.7 (5-15) MEQ/L BUN 138 H (7-17) mg/dL Creatinine 3.19 H (0.52-1.04) mg/dL Estimated GFR 13.4 ML/MIN Glucose 276 H (74-106) mg/dL POC Glucometer 243 H (74 to 106) mg/dL Calcium 8.4 (8.4-10.2) mg/dL Magnesium 2.5 H (1.6-2.3) mg/dL Total Bilirubin 0.40 (0.2-1.3) mg/dL AST 23 (14-36) U/L ALT 23 (0-35) U/L Alkaline Phosphatase 61 (38-126) U/L Serum Total Protein 6.3 (6.3-8.2) g/dL Albumin 3.5 (3.5-5.0) g/dL Urine Sodium (30-90) mmol/L 03/01/24 03/01/24 03/01/24 Range/Units 11:26 11:26 15:36 WBC (3.98-10.04) x10^3/uL RBC (3.93-5.22) x10^6/uL Hgb (11.2-15.7) g/dL Hct (34.1-44.9) % MCV (79.4-94.8) fL MCH (25.6-32.2) pg MCHC (32.2-35.5) g/dL RDW (11.7-14.4) % Plt Count (182-369) x10^3/uL MPV (9.4-12.3) fL Sodium 131 L (135-145) mmol/L Potassium 4.1 (3.5-5.1) mmol/L Chloride 91 L (98-107) mmol/L Carbon Dioxide 31 H (22-30) mmol/L Anion Gap 13.3 (5-15) MEQ/L BUN 126 H (7-17) mg/dL Creatinine 3.04 H (0.52-1.04) mg/dL Estimated GFR 14.2 ML/MIN Glucose 267 H (74-106) mg/dL POC Glucometer 132 H 132 H (74 to 106) mg/dL Calcium 8.3 L (8.4-10.2) mg/dL Magnesium (1.6-2.3) mg/dL Total Bilirubin 0.60 (0.2-1.3) mg/dL AST 23 (14-36) U/L ALT 20 (0-35) U/L Alkaline Phosphatase 61 (38-126) U/L Serum Total Protein 6.3 (6.3-8.2) g/dL Albumin 3.3 L (3.5-5.0) g/dL Urine Sodium (30-90) mmol/L 03/01/24 03/01/24 Range/Units 16:30 20:05 WBC (3.98-10.04) x10^3/uL RBC (3.93-5.22) x10^6/uL Hgb (11.2-15.7) g/dL Hct (34.1-44.9) % MCV (79.4-94.8) fL MCH (25.6-32.2) pg MCHC (32.2-35.5) g/dL RDW (11.7-14.4) % Plt Count (182-369) x10^3/uL MPV (9.4-12.3) fL Sodium (135-145) mmol/L Potassium (3.5-5.1) mmol/L Chloride (98-107) mmol/L Carbon Dioxide (22-30) mmol/L Anion Gap (5-15) MEQ/L BUN (7-17) mg/dL Creatinine (0.52-1.04) mg/dL Estimated GFR ML/MIN Glucose (74-106) mg/dL POC Glucometer 212 H (74 to 106) mg/dL Calcium (8.4-10.2) mg/dL Magnesium (1.6-2.3) mg/dL Total Bilirubin (0.2-1.3) mg/dL AST (14-36) U/L ALT (0-35) U/L Alkaline Phosphatase (38-126) U/L Serum Total Protein (6.3-8.2) g/dL Albumin (3.5-5.0) g/dL Urine Sodium 21 L (30-90) mmol/L Radiology Exams: Radiology Procedures Category Date Time Status CHEST 2 VIEWS (PA AND LAT) Routine Exams 02/29/24 18:41 Completed MRI L-SPINE WITHOUT CONTRAST [MRI] Routine Exams 03/01/24 10:12 Completed US ABDOMEN LIMITED [ABDOMINAL-LIMITED] [US] Routine Exams 03/01/24 08:00 Completed US ABDOMEN LIMITED [ABDOMINAL-LIMITED] [US] Routine Exams 03/02/24 08:00 Stop Req Multi-Disciplinary Progress Notes: Multi-Disciplinary Progress Notes 03/01/24 12:58 Case Management Note by Emily Chau S/W PATIENT'S DAUGHTER IN LAW PER HER REQUEST- SHE REPORTS PATIENT DOES WELL AT HOME AND THIS IS THE FIRST FALL SHE HAS HAD ANYTIME RECENTLY. SHE REPORTS SHE HAS PLENTY OF FOOD AT HOME AND SHE OFTEN BRINGS HER MEALS IN ADDITION TO HER HOME DELIVERED MEALS SHE GETS THRU MEDICARE. SHE GETS HER MEDS SHIPPED THEN MARILEE SORTS THEM AND MAKES APPROPRIATE CHANGES NEEDED. SHE ALSO ACCOMPANIES HER TO ALL OF HER DOCTOR APTS. SHE REPORTS PATIENT HAS HAD HHC IN THE PAST WITH [facility]. SHE WOULD LIKE PATIENT TO HAVE THIS AGAIN FOR SOME THERAPY AND ALSO FOR HER LIFE ALERT TO GET STARTED. OTHERWISE SHE FEELS COMFORTABLE WITH PATIENT RETURNING HOME AT TIME OF DC LONG SHE SHE IS ABLE TO GET HERSELF UP AND GET AROUND OKAY. Initialized on 03/01/24 12:58 - END OF NOTE <KENTRELL ARAUJO - Last Filed: 03/01/24 21:10> Assessment/Plan (1) Atrial fibrillation Current Visit: Yes Status: Chronic Assessment & Plan: - HR controlled- continue home meds, Eliquis, metoprolol - no recent echo -CXR 02/29/24 showing : Borderline cardiomegaly. Right lung base atelectasis/scarring. Negative for acute pneumonic process or CHF - Spironolactone and Torsemide held d/t LIZZETH -continue Code(s): I48.91 - UNSPECIFIED ATRIAL FIBRILLATION (2) Fall from ground level Current Visit: Yes Status: Acute Assessment & Plan: - Fall 02/28/24 ground level - 2:2 walker wheel stuck in door - + skin tears - PT/OT -needs new walker - CPK-WNL - No acute fractures/dislocations - Tylenol PRN pain Code(s): W18.30XA - FALL ON SAME LEVEL, UNSPECIFIED, INITIAL ENCOUNTER (3) Dehydration Current Visit: Yes Status: Acute Assessment & Plan: -improving Code(s): E86.0 - DEHYDRATION (4) Hypermagnesemia Current Visit: Yes Status: Acute Assessment & Plan: - 2/2 to CKD - continue to monitor -nephrology consulted - Tele Code(s): E83.41 - HYPERMAGNESEMIA (5) Skin tear of left elbow without complication Current Visit: Yes Status: Acute Assessment & Plan: - Dressing applied - XR reviewed- no acute findings Code(s): S51.012A - LACERATION WITHOUT FOREIGN BODY OF LEFT ELBOW, INIT ENCNTR (6) Skin tear of right lower leg without complication Current Visit: Yes Status: Acute Assessment & Plan: - Right skin, skin tears x2 - No edema or erythema - Bacitracin BID RLE - radiology records reviewed- no acute findings Code(s): S81.811A - LACERATION W/O FOREIGN BODY, RIGHT LOWER LEG, INIT ENCNTR (7) Coccyx pain Current Visit: Yes Status: Acute Assessment & Plan: - + Bruising - Sacrum and coxxyx XR: 02/27 2 AP views sacrum/coccyx demonstrates osteopenia, moderate lower lumbar degenerative changes, mild left hip degenerative changes, and extensive scattered vascular calcifications. No other bony, articular, or soft tissue abnormalities. -Pelvis CT showing marked lumbar spondylosis with endplate sclerosis and irregularity at L4-L5 level, for MRI lumbar spine with contrast correlation to rule out the possibility of discitis. MRI scheduled for today Code(s): M53.3 - SACROCOCCYGEAL DISORDERS, NOT ELSEWHERE CLASSIFIED (8) Atrial flutter Current Visit: Yes Status: Resolved Assessment & Plan: - resolved since admission - In a-fib which is chronic - see afib plan of care Code(s): I48.92 - UNSPECIFIED ATRIAL FLUTTER (9) Hypertensive chronic kidney disease with stage 1 through stage 4 chronic kidney disease, or unspecified chronic kidney disease Current Visit: Yes Status: Acute Assessment & Plan: - Creat 3.08, baseline 1.68 - IVF - BP stable - continue home meds - Spironolactone and Torseimide held d/t LIZZETH Code(s): I12.9 - HYPERTENSIVE CHRONIC KIDNEY DISEASE W STG 1-4/UNSP CHR KDNY (10) Hypokalemia Current Visit: No Status: Chronic Assessment & Plan: -Resolved -monitor renal lytes daily -may require multiple labs- do not cancel orders unless you call provider -tele Code(s): E87.6 - HYPOKALEMIA (11) Hyponatremia Current Visit: No Status: Chronic Assessment & Plan: -corrected sodium for hyperglycemia at 132 -D/C fluids Code(s): E87.1 - HYPO-OSMOLALITY AND HYPONATREMIA (12) Ovarian mass, right Current Visit: Yes Status: Acute Assessment & Plan: - Pelvis CT IMPRESSION: 1. No evidence of acute pathology or sacrum/coccyx fractures. 2. Right ovarian cystic mass measuring 7.4x6.1 cm noted. An MRI scan is advised for future assessment. 3. Umbilical region cystic mass measuring 2.0x4.0 cm noted. The US advised for future assessment. 4. Marked lumbar spondylosis with endplate sclerosis and irregularity at L4-L5 level, for MRI lumbar spine with contrast correlation to rule out the possibility of discitis. - Consider MRI after US tomorrow -Discussed case with Dr. Marie (oncology) patient had recent workup including PET July 2023 which did not show any concerning findings. No history of ovarian cancer Code(s): N83.8 - OT NONINFLAMMATORY DISORD OF OVARY, FALLOP AND BROAD LIGMT (13) Type 2 diabetes mellitus Current Visit: Yes Status: Chronic Assessment & Plan: - A1C 01/11/24 6.60 - Accuchecks ac/hs - Humalog S/S (14) Acute on chronic renal failure Current Visit: No Status: Acute Assessment & Plan: - Creat att 3.19 - no change with fluid challenge , Baseline 1.68 -Sees Sherwin guzman OP - Spironolactone and Torseimide held -Nephrology consulted, appreciate recs Code(s): N17.9 - ACUTE KIDNEY FAILURE, UNSPECIFIED; N18.9 - CHRONIC KIDNEY DISEASE, UNSPECIFIED (15) HLD (hyperlipidemia) Current Visit: Yes Status: Acute Assessment & Plan: - Continue statin - Lipid panel from 01/11/24- reviewed Code(s): E78.5 - HYPERLIPIDEMIA, UNSPECIFIED <ELI BUTTS - Last Filed: 03/01/24 10:46> VIKTORIYA Encounter - VIKTORIYA Encounter Attestation VIKTORIYA Encounter Attestation: "ChelsyTierraTawnyaJACOB andgeorgeiscussed pertinent aspects of their care with Eli Mcdonnell agree with the history, physical exam (any modifications based on my personal exam will be noted below), assessment, and plan as outlined in original note. Please see immediately below for my summary of findings and additional assessment and plan along with any meaningful corrections/explanations to the Subjective/Objective portions of the VIKTORIYA note will be noted." My portion of the encounter took place via telemedicine. -Patient has LIZZETH on CKD vs new baseline? as not improving with IVF and UA with only few hyaline casts. Consult nephrology. MRI with no concern for discitis and patient denies any back pain. <KENTRELL ARAUJO - Last Filed: 03/01/24 21:10>
[2024-03-01] MEDS: HUMALOG SQ PRN (07:24)
--- NOTE | 2024-03-01 10:36 | XRAY ---
Indication: Abnormal CT. Umbilical lump one year. Targeted soft tissue ultrasound umbilicus demonstrates 6.4 x 2.3 x 4.2 cm well-circumscribed periumbilical heterogeneous subcutaneous mass. It demonstrates central pockets of fluid, largest 1.5 x 0.8 cm. No peristalsis, hyperechogenicities, posterior shadowing, or abnormal color perfusion. Finding is nonspecific and indeterminate.
[2024-03-01] MEDS: Pepcid 20 MG PO SCH (10:47)
[2024-03-01] MEDS: BACIGUENT 30 GM TOP SCH (11:32)
--- NOTE | 2024-03-01 14:57 | XRAY ---
Indication: L4-L5 irregularity. Abnormal recent CT pelvis. Sagittal and axial MRI lumbar spine performed without contrast using T1 and T2-weighted sequences. Comparison: None No prior lumbar exams for counting purposes. 5 lumbar segments will be assumed. Sagittal images demonstrates normal lumbar lordosis with mild levoscoliosis centered at L4. Multilevel thoracolumbar degenerative disc desiccation signal with disc space narrowing greatest at L2-L5 levels. L4-L5 level demonstrates moderate opposing oblique degenerative discogenic signal changes, Modic type II/III. Tiny multilevel thoracolumbar Schmorl nodes. No acute fracture, suspicious bony lesions, or abnormal bone marrow signal. Conus medullaris terminates L2. Sagittal images through T12-L3 disc levels demonstrates minimal broad-based disc bulge without focal disc herniation or canal stenosis. Axial images at L3-L4 level demonstrates minimal annular disc bulge greater towards the right minimally effacing the thecal sac and producing right foraminal stenosis and left foraminal narrowing. No focal disc herniation or canal stenosis. Mild bilateral degenerative facet and ligamentum flavum hypertrophy minimally effaces thecal sac. At L4-L5 level, there is mild annular disc bulge minimally effacing the thecal sac with right foraminal stenosis and left foraminal narrowing. Slight impingement exiting right L4 nerve root. Moderate/significant bilateral degenerative facet/ligamentum flavum hypertrophy further effaces the thecal sac with mean AP thecal sac diameter 8-9 mm. At L5-S1 level, there is no focal disc herniation, spinal canal, or foraminal stenosis. Significant bilateral degenerative facet hypertrophy. Right pelvic inlet demonstrates incompletely visualized cystic mass at least 5.3 x 6.5 x 6.2 cm in greatest axial dimension. Impression: 1. Multilevel degenerative disc disease detailed level by level. Greatest extent at L4-L5 where there is spinal canal narrowing, right foraminal stenosis with right L4 nerve root impingement, and left foraminal narrowing. Recent CT pelvis demonstrates grossly stable appearance with respect to older CT exam April 16, 2023. 2. Negative for disc herniation. 3. Incompletely visualized right pelvic cystic mass also reported on recent CT pelvis. Rule out ovarian cystic malignancy. 4. Incidental levoscoliosis and multilevel Schmorl nodes.
[2024-03-01 16:01] LABS: ALBUMIN 3.3 g/dL (3.5-5.0); ANION GAP 13.3 MEQ/L (5-15); BILIRUBIN,TOTAL 0.6 mg/dL (0.2-1.3); Calcium 8.3 mg/dL (8.4-10.2); Creatinine 1 3.04 mg/dL (0.52-1.04); EST GLOMERULAR FILTRATION RATE 14.2 ML/MIN; Potassium 4.1 mmol/L (3.5-5.1); Total Protein 6.3 g/dL (6.3-8.2)
[2024-03-01] MEDS: Sodium Chloride 0.9% 1000 ML 1,000 ML IV SCH (18:15)
[2024-03-02 04:39] LABS: Hematocrit 27.8 % (34.1-44.9); Hemoglobin 8.7 g/dL (11.2-15.7); Mean Cell Volume 80.8 fL (79.4-94.8); Mean Corpuscular Hemoglobin 25.3 pg (25.6-32.2); Mean Corpuscular Hgb Concent. 31.3 g/dL (32.2-35.5); Mean Platelet Volume 10.7 fL (9.4-12.3); Platelet Count 201 x10^3/uL (182-369); Red Blood Count 3.44 x10^6/uL (3.93-5.22); Red Cell Distribution Width 16.5 % (11.7-14.4); White Blood Count 8.5 x10^3/uL (3.98-10.04)
--- NOTE | 2024-03-02 05:00 | PCM.NOTE ---
Date and Time: 03/02/24 0459 Subjective Assessment: Ms. Miranda is an 88 year old female with a pmhx of HLD, HTN, DMII, ovarian mass (follows with Dr. Marie), AFIB (Eliquis), and hypothyroidism admitted 02/28/24 for a ground level Fall that occurred 02/27/24 after the wheels of her walker got stuck in the door. She is also admitted with acute on chronic renal failure/ hyponatremia/ and hypokalemia. Aflutter on admission. Xrays with no acute fractures or dislocations. CT pelvis with no acute fractures. Of note - imaging does show a right ovarian cystic mass measuring 7.4x6.1 cm -known to family. Patient does see oncology OP with previous w/u including PET scan in July 2023 indicating benign process. Also noted is an Umbilical region cystic mass measuring 2.0x4.0 cm. Abdominal US showing Marked lumbar spondylosis with endplate sclerosis and irregularity at L4-L5. CT also shows possible discitis at L4-L5, however pt reports no pain in this region. MRI ordered and pending. Labs with hyponatremia/hyperkalemia/hypermagnesmia. 03/01/24: Met with patient bedside. A&O x 3 today. Endorses pain has improved. Patient does live alone and she reports continued weakness. Will have her work with PT today. Discussed labs. 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 I did call [facility] at patient's request with no answer. Creat has no improved much with fluid challenge. Will have nephrology consulted. Plan for MRI. 03/02/24: No overnight events noted. Nephrology consulted on pt - NS started last night. Creat levels improved this morning. No complaints this morning. Denies fever,cough, sob, cp, abdominal pain, MORAN, dizziness, N/V/D. - Review of Systems Constitutional: No Symptoms Eyes: No Symptoms Ears, Nose, & Throat: No Symptoms Respiratory: No Symptoms Cardiac: No Symptoms Abdominal/Gastrointestinal: No Symptoms Genitourinary Symptoms: No Symptoms Musculoskeletal: No Symptoms Skin: No Symptoms Neurological: No Symptoms Psychological: No Symptoms Endocrine: No Symptoms Hematologic/Lymphatic: No Symptoms Immunological/Allergic: No Symptoms Objective Exam General Appearance: no apparent distress Neurologic Exam: alert, oriented x 3, cooperative Skin Exam: normal color Wound Assessment: Skin/Wound Assessment Wound/Incision Assessment Start: 02/28/24 20:51 Text: Status: Active Freq: Q6H Protocol: Document 03/02/24 02:00 NAVJEREMÍAS (Rec: 03/02/24 02:07 [email or web address] [id number]) Wound/Incision Assessment Right Lower Other Wound Assessment Shift Assessment Wound Type SEE BELOW Wound Stage Non Pressure Wound Drainage Amount None General Appearance Open to air Primary Dressing BACITRACIN OINTMENT Comment SKIN TEAR AND ABRASIONS NOTED ON RIGHT LOWER LEG Left Elbow Wound Assessment Shift Assessment Wound Type Skin Tear Wound Stage Non Pressure Wound Dressing Status Dry & Intact,Changed Primary Dressing MEPILEX BORDER DRESSING Left Buttock Wound Assessment Shift Assessment Wound Type Pressure Ulcer Wound Stage Stage II Drainage Amount None Comment PRESSURE ULCER IS MID COCCYX AREA Eye Exam: PERRL Ears, Nose, Throat Exam: normal ENT inspection Neck Exam: normal inspection Respiratory Exam: normal breath sounds, lungs clear Cardiovascular Exam: regular rate/rhythm, normal heart sounds Gastrointestinal/Abdomen Exam: soft, normal bowel sounds Extremity Exam: normal inspection Back Exam: normal inspection Pelvic Exam: deferred Rectal Exam: deferred Objective Data Vital Signs: Vital Signs - 24 hr Temp Pulse Resp BP Pulse Ox 03/02/24 03:45 97.6 F 86 16 114/59 97 03/01/24 22:54 97.3 F 93 H 16 108/55 97 03/01/24 19:59 97.7 F 97 H 18 115/57 96 03/01/24 19:00 92 H 03/01/24 18:41 94 L 03/01/24 18:00 16 03/01/24 16:00 97.5 F 92 H 18 99/52 94 L 03/01/24 14:00 18 03/01/24 12:00 97.5 F 86 18 107/72 96 03/01/24 07:09 97 03/01/24 07:08 97.6 F 92 H 12 101/51 97 Pain Assessment - Last Documented Pain Intensity 0 Pain Scale Used FLACC Intake and Output: Intake & Output 02/28/24 02/29/24 03/01/24 03/02/24 11:59 11:59 11:59 11:59 Intake Total 560 2303 1728 Output Total 350 300 Balance 210 2002 172 Weight 64.6 kg 64.6 kg Lab Results: Lab Results-Last 24 Hours 03/01/24 03/01/24 03/01/24 Range/Units 04:37 06:48 11:26 Sodium 129 L (135-145) mmol/L Potassium 3.9 D (3.5-5.1) mmol/L Chloride 90 L (98-107) mmol/L Carbon Dioxide 29 (22-30) mmol/L Anion Gap 13.7 (5-15) MEQ/L BUN 138 H (7-17) mg/dL Creatinine 3.19 H (0.52-1.04) mg/dL Estimated GFR 13.4 ML/MIN Glucose 276 H (74-106) mg/dL POC Glucometer 243 H 132 H (74 to 106) mg/dL Calcium 8.4 (8.4-10.2) mg/dL Magnesium 2.5 H (1.6-2.3) mg/dL Total Bilirubin 0.40 (0.2-1.3) mg/dL AST 23 (14-36) U/L ALT 23 (0-35) U/L Alkaline Phosphatase 61 (38-126) U/L Serum Total Protein 6.3 (6.3-8.2) g/dL Albumin 3.5 (3.5-5.0) g/dL Urine Sodium (30-90) mmol/L 03/01/24 03/01/24 03/01/24 Range/Units 11:26 15:36 16:30 Sodium 131 L (135-145) mmol/L Potassium 4.1 (3.5-5.1) mmol/L Chloride 91 L (98-107) mmol/L Carbon Dioxide 31 H (22-30) mmol/L Anion Gap 13.3 (5-15) MEQ/L BUN 126 H (7-17) mg/dL Creatinine 3.04 H (0.52-1.04) mg/dL Estimated GFR 14.2 ML/MIN Glucose 267 H (74-106) mg/dL POC Glucometer 132 H 212 H (74 to 106) mg/dL Calcium 8.3 L (8.4-10.2) mg/dL Magnesium (1.6-2.3) mg/dL Total Bilirubin 0.60 (0.2-1.3) mg/dL AST 23 (14-36) U/L ALT 20 (0-35) U/L Alkaline Phosphatase 61 (38-126) U/L Serum Total Protein 6.3 (6.3-8.2) g/dL Albumin 3.3 L (3.5-5.0) g/dL Urine Sodium (30-90) mmol/L 03/01/24 03/01/24 Range/Units 20:05 22:13 Sodium (135-145) mmol/L Potassium (3.5-5.1) mmol/L Chloride (98-107) mmol/L Carbon Dioxide (22-30) mmol/L Anion Gap (5-15) MEQ/L BUN (7-17) mg/dL Creatinine (0.52-1.04) mg/dL Estimated GFR ML/MIN Glucose (74-106) mg/dL POC Glucometer 180 H (74 to 106) mg/dL Calcium (8.4-10.2) mg/dL Magnesium (1.6-2.3) mg/dL Total Bilirubin (0.2-1.3) mg/dL AST (14-36) U/L ALT (0-35) U/L Alkaline Phosphatase (38-126) U/L Serum Total Protein (6.3-8.2) g/dL Albumin (3.5-5.0) g/dL Urine Sodium 21 L (30-90) mmol/L Radiology Exams: Radiology Procedures Category Date Time Status CHEST 2 VIEWS (PA AND LAT) Routine Exams 02/29/24 18:41 Completed MRI L-SPINE WITHOUT CONTRAST [MRI] Routine Exams 03/01/24 10:12 Completed US ABDOMEN LIMITED [ABDOMINAL-LIMITED] [US] Routine Exams 03/01/24 08:00 Completed Multi-Disciplinary Progress Notes: Multi-Disciplinary Progress Notes 03/01/24 12:58 Case Management Note by Emily Chau S/W PATIENT'S DAUGHTER IN LAW PER HER REQUEST- SHE REPORTS PATIENT DOES WELL AT HOME AND THIS IS THE FIRST FALL SHE HAS HAD ANYTIME RECENTLY. SHE REPORTS SHE HAS PLENTY OF FOOD AT HOME AND SHE OFTEN BRINGS HER MEALS IN ADDITION TO HER HOME DELIVERED MEALS SHE GETS THRU MEDICARE. SHE GETS HER MEDS SHIPPED THEN MARILEE SORTS THEM AND MAKES APPROPRIATE CHANGES NEEDED. SHE ALSO ACCOMPANIES HER TO ALL OF HER DOCTOR APTS. SHE REPORTS PATIENT HAS HAD HHC IN THE PAST WITH [facility]. SHE WOULD LIKE PATIENT TO HAVE THIS AGAIN FOR SOME THERAPY AND ALSO FOR HER LIFE ALERT TO GET STARTED. OTHERWISE SHE FEELS COMFORTABLE WITH PATIENT RETURNING HOME AT TIME OF DC LONG SHE SHE IS ABLE TO GET HERSELF UP AND GET AROUND OKAY. Initialized on 03/01/24 12:58 - END OF NOTE Assessment/Plan (1) Atrial fibrillation Current Visit: Yes Status: Chronic Assessment & Plan: - HR controlled- continue home meds, Eliquis, metoprolol - no recent echo -CXR 02/29/24 showing : Borderline cardiomegaly. Right lung base atelectasis/scarring. Negative for acute pneumonic process or CHF - Spironolactone and Torsemide held d/t LIZZETH -continue Code(s): I48.91 - UNSPECIFIED ATRIAL FIBRILLATION (2) Fall from ground level Current Visit: Yes Status: Acute Assessment & Plan: - Fall 02/28/24 ground level - 2:2 walker wheel stuck in door - + skin tears - PT/OT -needs new walker - CPK-WNL - No acute fractures/dislocations - Tylenol PRN pain 03/02/24: -PT eval reviewed recs for rehab stay D/T WEAKNESS AND BALANCE DEFCITIS AND RECENT FALL HX -if pt is agrreable Code(s): W18.30XA - FALL ON SAME LEVEL, UNSPECIFIED, INITIAL ENCOUNTER (3) Dehydration Current Visit:c -improving- continue IVF Code(s): E86.0 - DEHYDRATION (4) Hypermagnesemia Current Visit: Yes Status: Acute Assessment & Plan: - 2/2 to CKD - continue to monitor -nephrology following - Tele Code(s): E83.41 - HYPERMAGNESEMIA (5) Skin tear of left elbow without complication Current Visit: Yes Status: Acute Assessment & Plan: - Dressing applied - XR reviewed- no acute findings Code(s): S51.012A - LACERATION WITHOUT FOREIGN BODY OF LEFT ELBOW, INIT ENCNTR (6) Skin tear of right lower leg without complication Current Visit: Yes Status: Acute Assessment & Plan: - Right skin, skin tears x2 - No edema or erythema - Bacitracin BID RLE - radiology records reviewed- no acute findings Code(s): S81.811A - LACERATION W/O FOREIGN BODY, RIGHT LOWER LEG, INIT ENCNTR (7) Coccyx pain Current Visit: Yes Status: Acute Assessment & Plan: - + Bruising - Sacrum and coxxyx XR: 02/27 2 AP views sacrum/coccyx demonstrates osteopenia, moderate lower lumbar degenerative changes, mild left hip degenerative changes, and extensive scattered vascular calcifications. No other bony, articular, or soft tissue abnormalities. -Pelvis CT showing marked lumbar spondylosis with endplate sclerosis and irregularity at L4-L5 level, for MRI lumbar spine with contrast correlation to rule out the possibility of discitis. MRI scheduled for today 03/02/24: MRI L/S findings: 1. Multilevel degenerative disc disease detailed level by level. Greatest extent at L4-L5 where there is spinal canal narrowing, right foraminal stenosis with right L4 nerve root impingement, and left foraminal narrowing. Recent CT pelvis demonstrates grossly stable appearance with respect to older CT exam April 16, 2023. 2. Negative for disc herniation. 3. Incompletely visualized right pelvic cystic mass also reported on recent CT pelvis. Rule out ovarian cystic malignancy. 4. Incidental levoscoliosis and multilevel Schmorl nodes. Code(s): M53.3 - SACROCOCCYGEAL DISORDERS, NOT ELSEWHERE CLASSIFIED (8) Atrial flutter Current Visit: Yes Status: Resolved Assessment & Plan: - resolved since admission - In a-fib which is chronic - see afib plan of care Code(s): I48.92 - UNSPECIFIED ATRIAL FLUTTER (9) Hypertensive chronic kidney disease with stage 1 through stage 4 chronic kidney disease, or unspecified chronic kidney disease Current Visit: Yes Status: Acute Assessment & Plan: - Creat 3.08, baseline 1.68 - IVF - BP stable - continue home meds - Spironolactone and Torseimide held d/t LIZZETH Code(s): I12.9 - HYPERTENSIVE CHRONIC KIDNEY DISEASE W STG 1-4/UNSP CHR KDNY (10) Hypokalemia Current Visit: No Status: Chronic Assessment & Plan: -Resolved -monitor renal lytes daily -may require multiple labs- do not cancel orders unless you call provider -tele 03/02/24: -resolved Code(s): E87.6 - HYPOKALEMIA (11) Hyponatremia Current Visit: No Status: Chronic Assessment & Plan: -corrected sodium for hyperglycemia at 132 -D/C fluids 03/02: -Nephrology following, NS@ 75ml/hr- improving Code(s): E87.1 - HYPO-OSMOLALITY AND HYPONATREMIA (12) Ovarian mass, right Current Visit: Yes Status: Acute Assessment & Plan: - Pelvis CT IMPRESSION: 1. No evidence of acute pathology or sacrum/coccyx fractures. 2. Right ovarian cystic mass measuring 7.4x6.1 cm noted. An MRI scan is advised for future assessment. 3. Umbilical region cystic mass measuring 2.0x4.0 cm noted. The US advised for future assessment. 4. Marked lumbar spondylosis with endplate sclerosis and irregularity at L4-L5 level, for MRI lumbar spine with contrast correlation to rule out the possibility of discitis. - Consider MRI after US tomorrow -Discussed case with Dr. Marie (oncology) patient had recent workup including PET July 2023 which did not show any concerning findings. No history of ovarian cancer -will follow up as OP Code(s): N83.8 - OTH NONINFLAMMATORY DISORD OF OVARY, FALLOP AND BROAD LIGMT (13) Type 2 diabetes mellitus Current Visit: Yes Status: Chronic Assessment & Plan: - A1C 01/11/24 6.60 - Accucheckkenneth ac/hs - Humalog S/S (14) Acute on chronic renal failure Current Visit: No Status: Acute Assessment & Plan: - Creat att 3.19 - no change with fluid challenge , Baseline 1.68 -Sees [facility] as OP - Spironolactone and Torseimide held -Nephrology consulted, appreciate recs 03/02: -Creat improving with NS @ 75ml per Nephrology recommendations, now at 2.40, will continue - monitor for fluid overload Code(s): N17.9 - ACUTE KIDNEY FAILURE, UNSPECIFIED; N18.9 - CHRONIC KIDNEY DISEASE, UNSPECIFIED (15) HLD (hyperlipidemia) Current Visit: Yes Status: Acute Assessment & Plan: - Continue statin - Lipid panel from 01/11/24- reviewed Code(s): I48.91 - UNSPECIFIED ATRIAL FIBRILLATION (2) Fall from ground level Current Visit: Yes Status: Acute Code(s): W18.30XA - FALL ON SAME LEVEL, UNSPECIFIED, INITIAL ENCOUNTER (3) Dehydration Current Visit: Yes Status: Acute Code(s): E86.0 - DEHYDRATION (4) Hypermagnesemia Current Visit: Yes Status: Acute Code(s): E83.41 - HYPERMAGNESEMIA (5) Skin tear of left elbow without complication Current Visit: Yes Status: Acute Code(s): S51.012A - LACERATION WITHOUT FOREIGN BODY OF LEFT ELBOW, INIT ENCNTR (6) Skin tear of right lower leg without complication Current Visit: Yes Status: Acute Code(s): S81.811A - LACERATION W/O FOREIGN BODY, RIGHT LOWER LEG, INIT ENCNTR (7) Coccyx pain Current Visit: Yes Status: Acute Code(s): M53.3 - SACROCOCCYGEAL DISORDERS, NOT ELSEWHERE CLASSIFIED (8) Atrial flutter Current Visit: Yes Status: Resolved Code(s): I48.92 - UNSPECIFIED ATRIAL FLUTTER (9) Hypertensive chronic kidney disease with stage 1 through stage 4 chronic kidney disease, or unspecified chronic kidney disease Current Visit: Yes Status: Acute Code(s): I12.9 - HYPERTENSIVE CHRONIC KIDNEY DISEASE W STG 1-4/UNSP CHR KDNY (10) Hypokalemia Current Visit: No Status: Chronic Code(s): E87.6 - HYPOKALEMIA (11) Hyponatremia Current Visit: No Status: Chronic Code(s): E87.1 - HYPO-OSMOLALITY AND HYPONATREMIA (12) Ovarian mass, right Current Visit: Yes Status: Acute Code(s): N83.8 - OTH NONINFLAMMATORY DISORD OF OVARY, FALLOP AND BROAD LIGMT (13) Type 2 diabetes mellitus Current Visit: Yes Status: Chronic (14) Acute on chronic renal failure Current Visit: No Status: Acute Code(s): N17.9 - ACUTE KIDNEY FAILURE, UNSPECIFIED; N18.9 - CHRONIC KIDNEY DISEASE, UNSPECIFIED (15) HLD (hyperlipidemia) Current Visit: Yes Status: Acute Code(s): E78.5 - HYPERLIPIDEMIA, UNSPECIFIED
[2024-03-02 05:28] LABS: ALBUMIN 3.1 g/dL (3.5-5.0); ANION GAP 11.7 MEQ/L (5-15); BILIRUBIN,TOTAL 0.5 mg/dL (0.2-1.3); Calcium 8.1 mg/dL (8.4-10.2); Creatinine 1 2.4 mg/dL (0.52-1.04); EST GLOMERULAR FILTRATION RATE 18.8 ML/MIN; MAGNESIUM 2.4 mg/dL (1.6-2.3); Potassium 3.7 mmol/L (3.5-5.1); TSH, 3RD Generation 0.589 mIU/L (0.470-4.680); Total Protein 5.9 g/dL (6.3-8.2)
[2024-03-02] MEDS: HUMALOG SQ PRN (08:21)
--- NOTE | 2024-03-03 05:16 | PCM.NOTE ---
Date and Time: 03/03/24 0514 Subjective Assessment: Ms. Miranda is an 88 year old female with a pmhx of HLD, HTN, DMII, ovarian mass (follows with Dr. Marie), AFIB (Eliquis), and hypothyroidism admitted 02/28/24 for a ground level Fall that occurred 02/27/24 after the wheels of her walker got stuck in the door. She is also admitted with acute on chronic renal failure/ hyponatremia/ and hypokalemia. Aflutter on admission. Xrays with no acute fractures or dislocations. CT pelvis with no acute fractures. Of note - imaging does show a right ovarian cystic mass measuring 7.4x6.1 cm -known to family. Patient does see oncology OP with previous w/u including PET scan in July 2023 indicating benign process. Also noted is an Umbilical region cystic mass measuring 2.0x4.0 cm. Abdominal US showing Marked lumbar spondylosis with endplate sclerosis and irregularity at L4-L5. CT also shows possible discitis at L4-L5, however pt reports no pain in this region. MRI ordered and pending. Labs with hyponatremia/hyperkalemia/hypermagnesmia. 03/01/24: Met with patient bedside. A&O x 3 today. Endorses pain has improved. Patient does live alone and she reports continued weakness. Will have her work with PT today. Discussed labs. Patient unable to provide information on senior human resources representative she sees outpatient. I did call Mary Grace at patient's request with no answer. Creat has no improved much with fluid challenge. Will have nephrology consulted. Plan for MRI. 03/02/24: No overnight events noted. Nephrology consulted on pt - NS started last night. Creat levels improved this morning. No complaints this morning. Denies fever,cough, sob, cp, abdominal pain, MORAN, dizziness, N/V/D. Objective Exam Wound Assessment: Skin/Wound Assessment Wound/Incision Assessment Start: 02/28/24 20:51 Text: Status: Active Freq: Q6H Protocol: Document 03/02/24 20:00 LB (Rec: 03/02/24 20:29 LB [id number]) Wound/Incision Assessment Right Lower Other Wound Assessment Shift Assessment Wound Type SEE BELOW Wound Stage Non Pressure Wound Drainage Amount None General Appearance Open to air Primary Dressing BACITRACIN OINTMENT Comment SKIN TEAR AND ABRASIONS NOTED ON RIGHT LOWER LEG. Left Elbow Wound Assessment Shift Assessment Wound Type Skin Tear Wound Stage Non Pressure Wound Dressing Status Dry & Intact,Changed Drainage Odor None/Absent Primary Dressing MEPILEX BORDER DRESSING Comment DRESSING REMAINS IN PLACE, C/D /I Left Buttock Wound Assessment Shift Assessment Wound Type Pressure Ulcer Wound Stage Stage II Drainage Amount None Comment BARRIER CREAM PRN, REPOSITIONING ENCOURAGED Wound Photo Photo Taken No Objective Data Vital Signs: Vital Signs - 24 hr Temp Pulse Resp BP Pulse Ox 03/03/24 04:00 77 18 94 L 03/03/24 00:00 98.2 F 82 18 100/55 98 03/02/24 21:25 94 L 03/02/24 20:00 16 03/02/24 19:52 98.2 F 85 16 109/56 92 L 03/02/24 16:00 97.8 F 78 18 123/55 92 L 03/02/24 12:00 98 F 91 H 16 96/52 94 L 03/02/24 08:00 97.4 F 91 H 20 99/57 99 03/02/24 07:26 97 Pain Assessment - Last Documented Pain Intensity 0 Pain Scale [id number] Intake and Output: Intake & Output 02/29/24 03/01/24 03/02/24 03/03/24 11:59 11:59 11:59 11:59 Intake Total 560 2303 2156 1297 Output Total 350 300 Balance 210 2002 215 1297 Weight 64.6 kg 64.6 kg Lab Results: Lab Results-Last 24 Hours 03/02/24 03/02/24 03/02/24 Range/Units 04:40 05:00 07:50 Sodium 131 L (135-145) mmol/L Potassium 3.7 (3.5-5.1) mmol/L Chloride 94 L (98-107) mmol/L Carbon Dioxide 29 (22-30) mmol/L Anion Gap 11.7 (5-15) MEQ/L BUN 112 H (7-17) mg/dL Creatinine 2.40 H (0.52-1.04) mg/dL Estimated GFR 18.8 ML/MIN Glucose 199 H (74-106) mg/dL POC Glucometer 170 H (74 to 106) mg/dL Hemoglobin A1c 7.85 H (4.5-6.0) % Calcium 8.1 L (8.4-10.2) mg/dL Magnesium 2.4 H (1.6-2.3) mg/dL Total Bilirubin 0.50 (0.2-1.3) mg/dL AST 20 (14-36) U/L ALT 19 (0-35) U/L Alkaline Phosphatase 59 (38-126) U/L NT-Pro-B Natriuret Pep 3210 (<300) pg/mL Serum Total Protein 5.9 L (6.3-8.2) g/dL Albumin 3.1 L (3.5-5.0) g/dL TSH 3rd Generation 0.589 (0.470-4.680) mIU/L 03/02/24 03/02/24 03/02/24 Range/Units 11:53 17:06 21:10 Sodium (135-145) mmol/L Potassium (3.5-5.1) mmol/L Chloride (98-107) mmol/L Carbon Dioxide (22-30) mmol/L Anion Gap (5-15) MEQ/L BUN (7-17) mg/dL Creatinine (0.52-1.04) mg/dL Estimated GFR ML/MIN Glucose (74-106) mg/dL POC Glucometer 200 H 141 H 184 H (74 to 106) mg/dL Hemoglobin A1c (4.5-6.0) % Calcium (8.4-10.2) mg/dL Magnesium (1.6-2.3) mg/dL Total Bilirubin (0.2-1.3) mg/dL AST (14-36) U/L ALT (0-35) U/L Alkaline Phosphatase (38-126) U/L NT-Pro-B Natriuret Pep (<300) pg/mL Serum Total Protein (6.3-8.2) g/dL Albumin (3.5-5.0) g/dL TSH 3rd Generation (0.470-4.680) mIU/L Radiology Exams: Radiology Procedures Category Date Time Status MRI L-SPINE WITHOUT CONTRAST [MRI] Routine Exams 03/01/24 10:12 Completed US ABDOMEN LIMITED [ABDOMINAL-LIMITED] [US] Routine Exams 03/01/24 08:00 Completed Multi-Disciplinary Progress Notes: Multi-Disciplinary Progress Notes 03/02/24 21:28 Physical Therapy Note by Audrey Bonilla UPON MEDICAL CODING 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 PT STATED SHE IS TRYING TO REST SHE HAS NOT BEEN ABLE TO SLEEP, STATING SHE DID NOT SLEEP LAST NIGHT BUT SHE ISN'T SURE WHY SHE CANNOT FALL ASLEEP. PT WAS ALERT AND ORIENTED. STATING SHE NEEDED TO USE REST ROOM, OFFERED TO ASSIST PT TO RESTROOM OR BEDSIDE COMMODE. PT DECLINED STATING SHE HAS BEEN USING A BED HAAS. NURSING STAFF CALLED IN FOR ASSIST. PT WAS ABLE TO ROLL TO SIDE USING UE HR INDEPENDENTLY FOR PLACEMENT OF BEDPAN AND REMOVAL OF BED HAAS. SHE WAS ABLE TO GET INTO SEATED POSITION WITH VERBAL CUING FOR SAFETY AND POSITIONING. JACOB REPORTED SHE WAS SLIGHTLY LIGHT HEADED AFTER GETTING INTO SITTING. O2 WAS 96%, HR 69. SHE WAS ABLE TO STAND, CBG WITH SAFETY CUES. PT COMPLETED WEIGHT SHIFT, AND MARCHES IN STANDING, RETURNED TO SITTING. PT WAS APPREHENSIVE TO WALK WITH ASSIST X1. NURSING STAFF CONTACTED FOR ASSIST. PT WAS ABLE SIT TO STAND, GCA AND AMBULATE CGA X 1 TO DOOR, APPROX. 30 FT USING RW. PT RETURNED TO CHAIR SEMI-RECLINED AND LEFT IN THAT POSITION WITH BED ALARM ON AND CALL LIGHT IN REACH. REFREQUENT SAFETY CUING REQUIRED, IE FOR PLACEMENT OF HANDS, PT TENDS TO WANT TO PULL UP ON AD. TREATMENT SESSION FROM 10:35-10:55) Initialized on 03/02/24 21:28 - END OF NOTE 03/02/24 13:45 Occupational Therapy Note by Myles(L#[id number]),Lacie Occupational Therapy Treatment Session ([id number]) Patient supine in bed upon OTR approach and requesting assistance to reach her call light that had fallen to the floor. Jacob reports that she is tired, but hasn't been able to sleep and is hoping to have a nap today. She reported that she was feeling too tired to sit at EOB for UE exercises and functional tasks, but was agreeable to in-bed treatment session. OTR discussed home setup with Jacob including equipment present and safety. She reports that her plan is to discharge home with [facility] including therapy with plans to setup Life Alert through [facility]. OTR also discussed family assistance and availability with Jacob. She then participated in BUE AROM ther ex's including shoulder flexion, abduction, rows, and horizontal abduction and bicep curls 1 set x10 reps with education provided for continued performance throughout the day. She verbalized understanding. Treatment session ended and patient supine in bed with call light and bedside table within reach. Will continue to see patient daily through stay to promote improved function and I/ADL performance, safety, and independence in prep for safe discharge home. Initialized on 03/02/24 13:45 - END OF NOTE 03/02/24 10:30 (created 03/02/24 11:45) Case Management Note by Emily Chau S/W PATIENT- SHE CONTINUES TO PLAN TO DC HOME AT TIME OF DC. SHE DOES NOT WANT TO GO FOR A REHAB STAY. SHE IS AGREEABLE TO DO HHC. WILL SEND REFERAL CLOSER TO TIME OF DC. SHE DENIES ANY FURTHER NEEDS AT HOME. SHE WILL ALSO BE ABLE TO GET A LIFE ALERT WITH [facility] Initialized on 03/02/24 11:45 - END OF NOTE Assessment/Plan (1) Atrial fibrillation Current Visit: Yes Status: Chronic Assessment & Plan: - HR controlled- continue home meds, Eliquis, metoprolol - no recent echo -CXR 02/29/24 showing : Borderline cardiomegaly. Right lung base atelectasis/scarring. Negative for acute pneumonic process or CHF - Spironolactone and Torsemide held d/t LIZZETH -continue Code(s): I48.91 - UNSPECIFIED ATRIAL FIBRILLATION (2) Fall from ground level Current Visit: Yes Status: Acute Assessment & Plan: - Fall 02/28/24 ground level - 2:2 walker wheel stuck in door - + skin tears - PT/OT -needs new walker - CPK-WNL - No acute fractures/dislocations - Tylenol PRN pain 03/02/24: -PT eval reviewed recs for rehab stay D/T WEAKNESS AND BALANCE DEFCITIS AND RECENT FALL HX -if pt is agrreable Code(s): W18.30XA - FALL ON SAME LEVEL, UNSPECIFIED, INITIAL ENCOUNTER (3) Dehydration Current Visit:c -improving- continue IVF Code(s): E86.0 - DEHYDRATION (4) Hypermagnesemia Current Visit: Yes Status: Acute Assessment & Plan: - 2/2 to CKD - continue to monitor -nephrology following - Tele Code(s): E83.41 - HYPERMAGNESEMIA (5) Skin tear of left elbow without complication Current Visit: Yes Status: Acute Assessment & Plan: - Dressing applied - XR reviewed- no acute findings Code(s): S51.012A - LACERATION WITHOUT FOREIGN BODY OF LEFT ELBOW, INIT ENCNTR (6) Skin tear of right lower leg without complication Current Visit: Yes Status: Acute Assessment & Plan: - Right skin, skin tears x2 - No edema or erythema - Bacitracin BID RLE - radiology records reviewed- no acute findings Code(s): S81.811A - LACERATION W/O FOREIGN BODY, RIGHT LOWER LEG, INIT ENCNTR (7) Coccyx pain Current Visit: Yes Status: Acute Assessment & Plan: - + Bruising - Sacrum and coxxyx XR: 02/27 2 AP views sacrum/coccyx demonstrates osteopenia, moderate lower lumbar degenerative changes, mild left hip degenerative changes, and extensive scattered vascular calcifications. No other bony, articular, or soft tissue abnormalities. -Pelvis CT showing marked lumbar spondylosis with endplate sclerosis and irregularity at L4-L5 level, for MRI lumbar spine with contrast correlation to rule out the possibility of discitis. MRI scheduled for today 03/02/24: MRI L/S findings: 1. Multilevel degenerative disc disease detailed level by level. Greatest extent at L4-L5 where there is spinal canal narrowing, right foraminal stenosis with right L4 nerve root impingement, and left foraminal narrowing. Recent CT pelvis demonstrates grossly stable appearance with respect to older CT exam April 16, 2023. 2. Negative for disc herniation. 3. Incompletely visualized right pelvic cystic mass also reported on recent CT pelvis. Rule out ovarian cystic malignancy. 4. Incidental levoscoliosis and multilevel Schmorl nodes. Code(s): M53.3 - SACROCOCCYGEAL DISORDERS, NOT ELSEWHERE CLASSIFIED (8) Atrial flutter Current Visit: Yes Status: Resolved Assessment & Plan: - resolved since admission - In a-fib which is chronic - see afib plan of care Code(s): I48.92 - UNSPECIFIED ATRIAL FLUTTER (9) Hypertensive chronic kidney disease with stage 1 through stage 4 chronic kidney disease, or unspecified chronic kidney disease Current Visit: Yes Status: Acute Assessment & Plan: - Creat 3.08, baseline 1.68 - IVF - BP stable - continue home meds - Spironolactone and Torseimide held d/t LIZZETH Code(s): I12.9 - HYPERTENSIVE CHRONIC KIDNEY DISEASE W STG 1-4/UNSP CHR KDNY (10) Hypokalemia Current Visit: No Status: Chronic Assessment & Plan: -Resolved -monitor renal lytes daily -may require multiple labs- do not cancel orders unless you call provider -tele 03/02/24: -resolved Code(s): E87.6 - HYPOKALEMIA (11) Hyponatremia Current Visit: No Status: Chronic Assessment & Plan: -corrected sodium for hyperglycemia at 132 -D/C fluids 03/02: -Nephrology following, NS@ 75ml/hr- improving Code(s): E87.1 - HYPO-OSMOLALITY AND HYPONATREMIA (12) Ovarian mass, right Current Visit: Yes Status: Acute Assessment & Plan: - Pelvis CT IMPRESSION: 1. No evidence of acute pathology or sacrum/coccyx fractures. 2. Right ovarian cystic mass measuring 7.4x6.1 cm noted. An MRI scan is advised for future assessment. 3. Umbilical region cystic mass measuring 2.0x4.0 cm noted. The US advised for future assessment. 4. Marked lumbar spondylosis with endplate sclerosis and irregularity at L4-L5 level, for MRI lumbar spine with contrast correlation to rule out the possibility of discitis. - Consider MRI after US tomorrow -Discussed case with Dr. Marie (oncology) patient had recent workup including PET July 2023 which did not show any concerning findings. No history of ovarian cancer -will follow up as OP Code(s): N83.8 - OTH NONINFLAMMATORY DISORD OF OVARY, FALLOP AND BROAD LIGMT (13) Type 2 diabetes mellitus Current Visit: Yes Status: Chronic Assessment & Plan: - A1C 01/11/24 6.60 - Accuchecks ac/hs - Humalog S/S (14) Acute on chronic renal failure Current Visit: No Status: Acute Assessment & Plan: - Creat att 3.19 - no change with fluid challenge , Baseline 1.68 -Seekenneth Courtney as OP - Spironolactone and Torseimide held -Nephrology consulted, appreciate recs 8/6: -Creat improving with NS @ 75ml per Nephrology recommendations, now at 2.40, will continue - monitor for fluid overload Code(s): N17.9 - ACUTE KIDNEY FAILURE, UNSPECIFIED; N18.9 - CHRONIC KIDNEY DISEASE, UNSPECIFIED (15) HLD (hyperlipidemia) Current Visit: Yes Status: Acute Assessment & Plan: - Continue statin - Lipid panel from 01/11/24- reviewed Code(s): I48.91 - UNSPECIFIED ATRIAL FIBRILLATION Code(s): I48.91 - UNSPECIFIED ATRIAL FIBRILLATION (2) Fall from ground level Current Visit: Yes Status: Acute Code(s): W18.30XA - FALL ON SAME LEVEL, UNSPECIFIED, INITIAL ENCOUNTER (3) Dehydration Current Visit: Yes Status: Acute Code(s): E86.0 - DEHYDRATION (4) Hypermagnesemia Current Visit: Yes Status: Acute Code(s): E83.41 - HYPERMAGNESEMIA (5) Skin tear of left elbow without complication Current Visit: Yes Status: Acute Code(s): S51.012A - LACERATION WITHOUT FOREIGN BODY OF LEFT ELBOW, INIT ENCNTR (6) Skin tear of right lower leg without complication Current Visit: Yes Status: Acute Code(s): S81.811A - LACERATION W/O FOREIGN BODY, RIGHT LOWER LEG, INIT ENCNTR (7) Coccyx pain Current Visit: Yes Status: Acute Code(s): M53.3 - SACROCOCCYGEAL DISORDERS, NOT ELSEWHERE CLASSIFIED (8) Atrial flutter Current Visit: Yes Status: Resolved Code(s): I48.92 - UNSPECIFIED ATRIAL FLUTTER (9) Hypertensive chronic kidney disease with stage 1 through stage 4 chronic kidney disease, or unspecified chronic kidney disease Current Visit: Yes Status: Acute Code(s): I12.9 - HYPERTENSIVE CHRONIC KIDNEY DISEASE W STG 1-4/UNSP CHR KDNY (10) Hypokalemia Current Visit: No Status: Chronic Code(s): E87.6 - HYPOKALEMIA (11) Hyponatremia Current Visit: No Status: Chronic Code(s): E87.1 - HYPO-OSMOLALITY AND HYPONATREMIA (12) Ovarian mass, right Current Visit: Yes Status: Acute Code(s): N83.8 - OTH NONINFLAMMATORY DISORD OF OVARY, FALLOP AND BROAD LIGMT (13) Type 2 diabetes mellitus Current Visit: Yes Status: Chronic (14) Acute on chronic renal failure Current Visit: No Status: Acute Code(s): N17.9 - ACUTE KIDNEY FAILURE, UN SPECIFIED; N18.9 - CHRONIC KIDNEY DISEASE, UNSPECIFIED (15) HLD (hyperlipidemia) Current Visit: Yes Status: Acute Code(s): E78.5 - HYPERLIPIDEMIA, UNSPECIFIED
[2024-03-03 08:03] VITALS: TEMP 97.7
[2024-03-03 08:41] LABS: ALBUMIN 3.1 g/dL (3.5-5.0); ANION GAP 11.1 MEQ/L (5-15); BILIRUBIN,TOTAL 0.5 mg/dL (0.2-1.3); Creatinine 1 1.96 mg/dL (0.52-1.04); Potassium 3.7 mmol/L (3.5-5.1); Total Protein 5.9 g/dL (6.3-8.2)
[2024-03-03 09:06] LABS: Absolute Neutrophil Ct (ANC) 5.63 x10^3/uL (1.56-6.13); BASOPHIL % 0.7 % (0.1-1.2); Basophil (Absolute #) 0.05 x10^3/uL (0.01-0.08); Eosinophil % 0.5 % (0.7-5.8); Eosinophil (Absolute #) 0.04 x10^3/uL (0.04-0.36); Hematocrit 30.2 % (34.1-44.9); Hemoglobin 8.5 g/dL (11.2-15.7); IMMATURE GRAN # 0.13 x10^3u/L (0.001-0.031); IMMATURE GRAN % 1.8 % (0.001-0.429); Lymphocyte (Absolute #) 0.83 x10^3/uL (1.18-3.74); Lymphocytes % 11.3 % (19.3-51.7); Mean Cell Volume 90.1 fL (79.4-94.8); Mean Corpuscular Hemoglobin 25.4 pg (25.6-32.2); Mean Corpuscular Hgb Concent. 28.1 g/dL (32.2-35.5); Mean Platelet Volume 10.6 fL (9.4-12.3); Monocyte (Absolute #) 0.67 x10^3/uL (0.24-0.86); Monocytes % 9.1 % (4.7-12.5); Neutrophil % 76.6 % (34.0-71.1); Platelet Count 185 x10^3/uL (182-369); Red Blood Count 3.35 x10^6/uL (3.93-5.22); Red Cell Distribution Width 17.1 % (11.7-14.4); White Blood Count 7.4 x10^3/uL (3.98-10.04)
[2024-03-03 10:21] LABS: Slide Review 1 YES
--- NOTE | 2024-03-03 11:38 | PCM.DS ---
Discharge Summary Date of Admission: 02/28/24 19:46 Date of Discharge: 03/03/24 Admitting Physician: SUJIT QUIÑONES MD Consults: Consults on Case 03/01/24 09:20 Consult Nephrology ROUTINE Primary Care Provider: SHAHRZAD BRYAN MD Allergies Allergies Penicillins Adverse Reaction (Verified 01/10/24 23:28) Hospital Summary - Hospital Course Hospital Course: Ms. Miranda is an 88 year old female with a pmhx of HLD, HTN, DMII, ovarian mass (follows with Dr. Marie), AFIB (Eliquis), and hypothyroidism admitted 02/28/24 for a ground level Fall that occurred 02/27/24 after the wheels of her walker got stuck in the door. She is also admitted with acute on chronic renal failure/ hyponatremia/ and hypokalemia. Aflutter on admission. Xrays with no acute fractures or dislocations. CT pelvis with no acute fractures. Of note - imaging does show a right ovarian cystic mass measuring 7.4x6.1 cm -known to family. Patient does see oncology OP with previous w/u including PET scan in July 2023 indicating benign process. Also noted is an Umbilical region cystic mass measuring 2.0x4.0 cm. Patient has known hernia and does not wish for intervention. Patient with hyponatremia/hyperkalemia/ and acute on chronic renal failure on admission. Hyperkalemia/hyponatremia have resolved. Creat at baseline. Patient follows with Dr. Courtney as OP with upcoming appt. She also follows with Cynthia - oncology for ovarian mass with upcoming appt. Patient has declined rehab stay. [facility] has been set up. Advised close follow up with specialty providers as scheduled, as well as PCP. Advised patient to continue to hold diuretics until follow up with nephrology. Monitor for fluid overload/edema, check weight daily, if > 3lb weight gain call nephrology for further instruction. Discharge Note New Medications: Hold diuretics Follow Up: PCP/NEPH/Oncology Latest Assessment & Plan (1) Atrial fibrillation Current Visit: Yes Status: Chronic Assessment & Plan: - HR controlled- continue home meds, Eliquis, metoprolol - no recent echo -CXR 02/29/24 showing : Borderline cardiomegaly. Right lung base atelectasis/scarring. Negative for acute pneumonic process or CHF - Spironolactone and Torsemide held d/t LIZZETH -continue Code(s): I48.91 - UNSPECIFIED ATRIAL FIBRILLATION (2) Fall from ground level Current Visit: Yes Status: Acute Assessment & Plan: - Fall 02/28/24 ground level - 2:2 walker wheel stuck in door - + skin tears - PT/OT -needs new walker - CPK-WNL - No acute fractures/dislocations - Tylenol PRN pain 03/02/24: -PT eval reviewed recs for rehab stay D/T WEAKNESS AND BALANCE DEFCITIS AND RECENT FALL HX -if pt is agrreable Code(s): W18.30XA - FALL ON SAME LEVEL, UNSPECIFIED, INITIAL ENCOUNTER (3) Dehydration Current Visit:c -improving- continue IVF Code(s): E86.0 - DEHYDRATION (4) Hypermagnesemia Current Visit: Yes Status: Acute Assessment & Plan: - 2/2 to CKD - continue to monitor -nephrology following - Tele Code(s): E83.41 - HYPERMAGNESEMIA (5) Skin tear of left elbow without complication Current Visit: Yes Status: Acute Assessment & Plan: - Dressing applied - XR reviewed- no acute findings Code(s): S51.012A - LACERATION WITHOUT FOREIGN BODY OF LEFT ELBOW, INIT ENCNTR (6) Skin tear of right lower leg without complication Current Visit: Yes Status: Acute Assessment & Plan: - Right skin, skin tears x2 - No edema or erythema - Bacitracin BID RLE - radiology records reviewed- no acute findings Code(s): S81.811A - LACERATION W/O FOREIGN BODY, RIGHT LOWER LEG, INIT ENCNTR (7) Coccyx pain Current Visit: Yes Status: Acute Assessment & Plan: - + Bruising - Sacrum and coxxyx XR: 02/27 2 AP views sacrum/coccyx demonstrates osteopenia, moderate lower lumbar degenerative changes, mild left hip degenerative changes, and extensive scattered vascular calcifications. No other bony, articular, or soft tissue abnormalities. -Pelvis CT showing marked lumbar spondylosis with endplate sclerosis and irregularity at L4-L5 level, for MRI lumbar spine with contrast correlation to rule out the possibility of discitis. MRI scheduled for today 03/02/24: MRI L/S findings: 1. Multilevel degenerative disc disease detailed level by level. Greatest extent at L4-L5 where there is spinal canal narrowing, right foraminal stenosis with right L4 nerve root impingement, and left foraminal narrowing. Recent CT pelvis demonstrates grossly stable appearance with respect to older CT exam April 16, 2023. 2. Negative for disc herniation. 3. Incompletely visualized right pelvic cystic mass also reported on recent CT pelvis. Rule out ovarian cystic malignancy. 4. Incidental levoscoliosis and multilevel Schmorl nodes. Code(s): M53.3 - SACROCOCCYGEAL DISORDERS, NOT ELSEWHERE CLASSIFIED (8) Atrial flutter Current Visit: Yes Status: Resolved Assessment & Plan: - resolved since admission - In a-fib which is chronic - see afib plan of care Code(s): I48.92 - UNSPECIFIED ATRIAL FLUTTER (9) Hypertensive chronic kidney disease with stage 1 through stage 4 chronic kidney disease, or unspecified chronic kidney disease Current Visit: Yes Status: Acute Assessment & Plan: - Creat 3.08, baseline 1.68 - IVF - BP stable - continue home meds - Spironolactone and Torseimide held d/t LIZZETH Code(s): I12.9 - HYPERTENSIVE CHRONIC KIDNEY DISEASE W STG 1-4/UNSP CHR KDNY (10) Hypokalemia Current Visit: No Status: Chronic Assessment & Plan: -Resolved -monitor renal lytes daily -may require multiple labs- do not cancel orders unless you call provider -tele 03/02/24: -resolved Code(s): E87.6 - HYPOKALEMIA (11) Hyponatremia Current Visit: No Status: Chronic Assessment & Plan: -corrected sodium for hyperglycemia at 132 -D/C fluids 03/02: -Nephrology following, NS@ 75ml/hr- improving Code(s): E87.1 - HYPO-OSMOLALITY AND HYPONATREMIA (12) Ovarian mass, right Current Visit: Yes Status: Acute Assessment & Plan: - Pelvis CT IMPRESSION: 1. No evidence of acute pathology or sacrum/coccyx fractures. 2. Right ovarian cystic mass measuring 7.4x6.1 cm noted. An MRI scan is advised for future assessment. 3. Umbilical region cystic mass measuring 2.0x4.0 cm noted. The US advised for future assessment. 4. Marked lumbar spondylosis with endplate sclerosis and irregularity at L4-L5 level, for MRI lumbar spine with contrast correlation to rule out the possibility of discitis. - Consider MRI after US tomorrow -Discussed case with Dr. Marie (oncology) patient had recent workup including PET July 2023 which did not show any concerning findings. No history of ovarian cancer -will follow up as OP Code(s): N83.8 - OTH NONINFLAMMATORY DISORD OF OVARY, FALLOP AND BROAD LIGMT (13) Type 2 diabetes mellitus Current Visit: Yes Status: Chronic Assessment & Plan: - A1C 01/11/24 6.60 - Accuchecks ac/hs - Humalog S/S (14) Acute on chronic renal failure Current Visit: No Status: Acute Assessment & Plan: - Creat att 3.19 - no change with fluid challenge , Baseline 1.68 -Sees Sherwin as OP - Spironolactone and Torseimide held -Nephrology consulted, appreciate recs 03/02: -Creat improving with NS @ 75ml per Nephrology recommendations, now at 2.40, will continue - monitor for fluid overload Code(s): N17.9 - ACUTE KIDNEY FAILURE, UNSPECIFIED; N18.9 - CHRONIC KIDNEY DISEASE, UNSPECIFIED (15) HLD (hyperlipidemia) Current Visit: Yes Status: Acute Assessment & Plan: - Continue statin - Lipid panel from 01/11/24- reviewed I spent 39 minutes [id number] with the patient on the day of discharge performing discharge exam, discussing hospital stay and discharge instructions with patient and caregivers, preparation of discharge records, prescriptions & referral forms and addressing any questions/concerns the patient had as documented above. - Vitals & Intake/Output Vital Signs: Vital Signs Temperature 97.7 F 03/03/24 08:00 Pulse Rate 75 03/03/24 08:00 Respiratory Rate 22 03/03/24 08:00 Blood Pressure 124/53 03/03/24 08:00 O2 Sat by Pulse Oximetry 94 L 03/03/24 08:00 Intake & Output: Intake & Output 02/29/24 03/01/24 03/02/24 03/03/24 11:59 11:59 11:59 11:59 Intake Total 560 2303 2156 1777 Output Total 350 300 Balance 210 2002 2155 1776 Weight 64.6 kg 64.6 kg - Lab Result Diagrams: 03/03/24 08:09 03/03/24 08:09 Lab Results-Last 24 Hrs: Lab Results-Last 24 Hours 03/02/24 03/02/24 03/02/24 Range/Units 11:53 17:06 21:10 WBC (3.98-10.04) x10^3/uL RBC (3.93-5.22) x10^6/uL Hgb (11.2-15.7) g/dL Hct (34.1-44.9) % MCV (79.4-94.8) fL MCH (25.6-32.2) pg MCHC (32.2-35.5) g/dL RDW (11.7-14.4) % Plt Count (182-369) x10^3/uL MPV (9.4-12.3) fL Gran % (34.0-71.1) % Immature Gran % (Auto) (0.001-0.429) % Nucleat RBC Rel Count (0.00-0.2) % Eos # (Auto) (0.04-0.36) x10^3/uL Immature Gran # (Auto) (0.001-0.031) x10^3u/L Absolute Lymphs (auto) (1.18-3.74) x10^3/uL Absolute Monos (auto) (0.24-0.86) x10^3/uL Absolute Nucleated RBC (0.00-0.012) x10^3u/L Lymphocytes % (19.3-51.7) % Monocytes % (4.7-12.5) % Eosinophils % (0.7-5.8) % Basophils % (0.1-1.2) % Absolute Granulocytes (1.56-6.13) x10^3/uL Basophils # (0.01-0.08) x10^3/uL Sodium (135-145) mmol/L Potassium (3.5-5.1) mmol/L Chloride (98-107) mmol/L Carbon Dioxide (22-30) mmol/L Anion Gap (5-15) MEQ/L BUN (7-17) mg/dL Creatinine (0.52-1.04) mg/dL Estimated GFR ML/MIN Glucose (74-106) mg/dL POC Glucometer 200 H 141 H 184 H (74 to 106) mg/dL Calcium (8.4-10.2) mg/dL Total Bilirubin (0.2-1.3) mg/dL AST (14-36) U/L ALT (0-35) U/L Alkaline Phosphatase (38-126) U/L Serum Total Protein (6.3-8.2) g/dL Albumin (3.5-5.0) g/dL Slides for Path Review 03/03/24 03/03/24 03/03/24 Range/Units 07:41 08:09 08:09 WBC 7.4 (3.98-10.04) x10^3/uL RBC 3.35 L (3.93-5.22) x10^6/uL Hgb 8.5 L (11.2-15.7) g/dL Hct 30.2 L (34.1-44.9) % MCV 90.1 D (79.4-94.8) fL MCH 25.4 L (25.6-32.2) pg MCHC 28.1 L (32.2-35.5) g/dL RDW 17.1 H (11.7-14.4) % Plt Count 185 (182-369) x10^3/uL MPV 10.6 (9.4-12.3) fL Gran % 76.6 H (34.0-71.1) % Immature Gran % (Auto) 1.8 H (0.001-0.429) % Nucleat RBC Rel Count 0.0 (0.00-0.2) % Eos # (Auto) 0.04 (0.04-0.36) x10^3/uL Immature Gran # (Auto) 0.13 H (0.001-0.031) x10^3u/L Absolute Lymphs (auto) 0.83 L (1.18-3.74) x10^3/uL Absolute Monos (auto) 0.67 (0.24-0.86) x10^3/uL Absolute Nucleated RBC 0.00 (0.00-0.012) x10^3u/L Lymphocytes % 11.3 L (19.3-51.7) % Monocytes % 9.1 (4.7-12.5) % Eosinophils % 0.5 L (0.7-5.8) % Basophils % 0.7 (0.1-1.2) % Absolute Granulocytes 5.63 (1.56-6.13) x10^3/uL Basophils # 0.05 (0.01-0.08) x10^3/uL Sodium 135 (135-145) mmol/L Potassium 3.7 (3.5-5.1) mmol/L Chloride 100 (98-107) mmol/L Carbon Dioxide 27 (22-30) mmol/L Anion Gap 11.1 (5-15) MEQ/L BUN 88 H (7-17) mg/dL Creatinine 1.96 H (0.52-1.04) mg/dL Estimated GFR 24.0 ML/MIN Glucose 173 H (74-106) mg/dL POC Glucometer 156 H (74 to 106) mg/dL Calcium 8.0 L (8.4-10.2) mg/dL Total Bilirubin 0.50 (0.2-1.3) mg/dL AST 22 (14-36) U/L ALT 20 (0-35) U/L Alkaline Phosphatase 60 (38-126) U/L Serum Total Protein 5.9 L (6.3-8.2) g/dL Albumin 3.1 L (3.5-5.0) g/dL Slides for Path Review YES Micro Results-Entire Visit: Accuchecks Date 03/03/24 Date 03/02/24 Date 03/02/24 Date 03/02/24 Time 08:03 Time 21:00 Time 12:20 - Procedures and Test Procedures and Tests throughout Hospitalization: Therapy Orders & Screens 02/28/24 19:56 Respiratory Therapy Consult ONCE Comment: Reason For Exam: 02/29/24 08:00 PT Screen per Nursing Assess ONCE Comment: Protocol Order Physician Instructions: Greater than 3 points order PT Admission Screenin Reason For Exam: Triggered on Admission Diagnosis: hyponatremia, hypokalemia Open Wound/Cellutlitis/Pressure Ulcers: Yes Acute Fx/ORIF/Change in wt bearing status: No Severe MUSCULOSKELETAL pain: No ADL Dysfunction: Yes Acute CVA w/Hemiparesis/Hemiplegia: No Decreased Functional Mobility/Strength: Yes Sprain/Strain: No Acute Post-op Mobility Dysfunction: No Total Points: 9 02/29/24 13:02 PT Eval & Treat ( Order) ONCE Reason for Eval:: fall Diagnosis: hyponatremia, hypokalemia OT Eval and Treat ( Order) ONCE Comment: Physician Instructions: Reason For Exam: Diagnosis: hyponatremia, hypokalemia 03/01/24 08:00 Speech Therapy Eval & Treat [ST Eval & Treat (MD Order)] .as ordered Comment: Physician Instructions: Reason For Exam: Evaluate: Yes Treat: Yes Reason for Eval: difficulty swallowing pills and even sips of water, "be lches" and gags Diagnosis: hyponatremia, hypokalemia Discharge Exam General Appearance: no apparent distress, cachetic Neurologic Exam: alert, oriented x 3, cooperative Eye Exam: PERRL Ears, Nose, Throat Exam: normal ENT inspection Neck Exam: normal inspection Respiratory Exam: normal breath sounds, lungs clear Cardiovascular Exam: regular rate/rhythm, normal heart sounds Gastrointestinal/Abdomen Exam: soft, normal bowel sounds Pelvic Exam: deferred Rectal Exam: deferred Back Exam: normal inspection Extremity Exam: normal inspection Skin Exam: normal color Wound Assessment: Skin/Wound Assessment Wound/Incision Assessment Start: 02/28/24 20:51 Text: Status: Active Freq: Q6H Protocol: Document 03/03/24 08:00 EK (Rec: 03/03/24 10:08 EK [id number]) Wound/Incision Assessment Right Lower Other Wound Assessment Shift Assessment Wound Type SEE BELOW Wound Stage Non Pressure Wound Drainage Amount None General Appearance Open to air Primary Dressing BACITRACIN OINTMENT Comment ABRASIONS TO RLE- BACITRACIN APPLIED TOPICALLY AFTER EACH INCONTINENT EPISODE AND NEEDED Left Elbow Wound Assessment Shift Assessment Wound Type Skin Tear Wound Stage Non Pressure Wound Dressing Status Dry & Intact,Changed Drainage Odor None/Absent Primary Dressing MEPILEX BORDER DRESSING Comment REMAINS IN PLACE AND IS C/D/I Left Buttock Wound Assessment Shift Assessment Wound Type Pressure Ulcer Wound Stage Stage II Drainage Amount None Comment BARRIER CREAM APPLIED TOPICALLY AFTER EACH INCONTINET EPISODE AND NEEDED Final Diagnosis/Problem List - Final Discharge Diagnosis/Problem (1) Atrial fibrillation Current Visit: Yes Status: Chronic Code(s): I48.91 - UNSPECIFIED ATRIAL FIBRILLATION (2) Fall from ground level Current Visit: Yes Status: Acute Code(s): W18.30XA - FALL ON SAME LEVEL, UNSPECIFIED, INITIAL ENCOUNTER (3) Dehydration Current Visit: Yes Status: Acute Code(s): E86.0 - DEHYDRATION (4) Hypermagnesemia Current Visit: Yes Status: Acute Code(s): E83.41 - HYPERMAGNESEMIA (5) Skin tear of left elbow without complication Current Visit: Yes Status: Acute Code(s): S51.012A - LACERATION WITHOUT FOREIGN BODY OF LEFT ELBOW, INIT ENCNTR (6) Skin tear of right lower leg without complication Current Visit: Yes Status: Acute Code(s): S81.811A - LACERATION W/O FOREIGN BODY, RIGHT LOWER LEG, INIT ENCNTR (7) Coccyx pain Current Visit: Yes Status: Acute Code(s): M53.3 - SACROCOCCYGEAL DISORDERS, NOT ELSEWHERE CLASSIFIED (8) Atrial flutter Current Visit: Yes Status: Resolved Code(s): I48.92 - UNSPECIFIED ATRIAL FLUTTER (9) Hypertensive chronic kidney disease with stage 1 through stage 4 chronic kidney disease, or unspecified chronic kidney disease Current Visit: Yes Status: Acute Code(s): I12.9 - HYPERTENSIVE CHRONIC KIDNEY DISEASE W STG 1-4/UNSP CHR KDNY (10) Hypokalemia Current Visit: No Status: Chronic Code(s): E87.6 - HYPOKALEMIA (11) Hyponatremia Current Visit: No Status: Chronic Code(s): E87.1 - HYPO-OSMOLALITY AND HYPONATREMIA (12) Ovarian mass, right Current Visit: Yes Status: Acute Code(s): N83.8 - OTH NONINFLAMMATORY DISORD OF OVARY, FALLOP AND BROAD LIGMT (13) Type 2 diabetes mellitus Current Visit: Yes Status: Chronic (14) Acute on chronic renal failure Current Visit: No Status: Acute Code(s): N17.9 - ACUTE KIDNEY FAILURE, UNSPECIFIED; N18.9 - CHRONIC KIDNEY DISEASE, UNSPECIFIED (15) HLD (hyperlipidemia) Current Visit: Yes Status: Acute Code(s): E78.5 - HYPERLIPIDEMIA, UNSPECIFIED - Discharge Discharge Date: 03/03/24 (Home with [facility]) Disposition: Home, Self-Care Condition: Stable Prescriptions: New Bacitracin Zinc [Baciguent 30 gm] See Rx Instructions .ROUTE .COMPLEX Continue Lorazepam 0.5 mg [Ativan 0.5 MG] 0.5 mg PO DAILY PRN PRN PRN Reason: Anxiety Levothyroxine Sodium 75 mcg PO QAM Apixaban [Eliquis] 2.5 mg PO BID Metoprolol Tartrate 75 mg PO BID Atorvastatin Calcium 20 mg PO HS Potassium Chloride 20 meq PO BID Famotidine [Pepcid] 20 mg PO DAILY Discontinued Acetaminophen 325 mg [Tylenol 325 mg] 650 mg PO Q4H PRN PRN tablet PRN Reason: Pain, Fever, Headache Spironolactone 50 mg PO BID Torsemide 100 mg PO BID Instructions: Hypokalemia, Preventing falls in adults Additional Instructions: [facility] HAS BEEN SET UP. THEY WILL CALL YOU TO ARRANGE A TIME TO COME SEE YOU. THEIR PHONE NUMBER IS [phone] IF YOU NEED ANYTHING BEFORE THEIR FIRST VISIT Follow up with: ALISSA MARIE MD [NON-STAFF PHY W/O PRIVILEGES] - 03/23/24 GEMA COURTNEY [CONSULTING PHYSICIAN] - 03/12/24 3:20 pm SHAHRZAD BRYAN MD [Primary Care Provider] - 03/25/24
[2024-03-03 16:11] VITALS: BP 116/56; PULSE 83; O2SAT 98
[2024-03-03 16:44] VITALS: RESP 19
--- NOTE | 2024-03-04 07:33 | CONS ---
HISTORY OF PRESENT ILLNESS: The patient is a very pleasant 88-year-old lady who has an underlying history of chronic kidney disease stage 3b/early stage 4. Baseline creatinine 1.6, 1.7 mg%. The patient is an avid fluid intaker. She was weak, cachectic. The patient was brought to the emergency room with paramedics after a fall. Her sodium levels were noted to be low, around 126 mEq/L. Her creatinine was high. She was on multiple diuretics which included torsemide 100 b.i.d., spironolactone 50 b.i.d. Her swelling was better. Patient's creatinine was 3 mg and a renal consultation was called. PAST MEDICAL HISTORY: 1) Atrial fibrillation. 2) Dyslipidemia. 3) Hypertension. 4) Congestive heart failure. 5) Edema. 6) Hypokalemia. 7) Hyponatremia. PAST SURGICAL HISTORY: 1) Hernia repair. 2) Appendectomy. 3) Cholecystectomy. HOME MEDICATIONS: Reviewed which included torsemide 100 b.i.d., spironolactone 50 b.i.d., potassium supplementation, metoprolol, levothyroxine. ALLERGIES: Penicillins. FAMILY HISTORY: No history of reported renal problems in the family. SOCIAL HISTORY: Former smoker. No alcohol abuse. No drug abuse. REVIEW OF SYSTEMS: The patient complains of fatigue. Her leg swelling is better. Had fall. No trauma. No focal weaknesses. No dysuria. Appetite is improving. Blood sugar has been borderline high. Urinalysis was done which did not show any major sediments, hyaline casts were present. All systems reviewed in detail, pertinent mentioned here and in History of Present Illness. The rest were negative. PHYSICAL EXAMINATION: VITAL SIGNS: Reviewed on the floor. HEENT: Normocephalic, atraumatic. Eyes with pale conjunctivae. NECK: Supple. CHEST: Clear. CARDIOVASCULAR: S1, S2 normal. ABDOMEN: Soft, nontender. No organomegaly. EXTREMITIES: No cyanosis, clubbing, or edema. SKIN: No rash. Skin turgor has decreased. MUSCULOSKELETAL: No acute swelling or redness noted. NEUROLOGIC: Nonfocal exam. Alert, awake, oriented x3. LABORATORY DATA: Labs reviewed, recent creatinine around 3.19 mg, baseline around 1.7 mg. Sodium level 129, potassium level is better. ASSESSMENT AND PLAN: 1) Acute kidney injury because of overdiuresis, stabilizing. Expect improvement over the next 24 hours. We will recommend cautious hydration with normal saline at 75 mL/hour. Note the patient's potassium is normal, bicarb level is normal, no fluid overload. No need for renal replacement therapy. If renal function continues to worsen, may need to be transferred to a center with facilities for renal replacement therapy. 2) Chronic kidney disease stage 3b/4. Baseline creatinine 1.7. Followup the creatinine trend and let us see what point it stabilizes. LIZZETH as mentioned. No urgent need for THERAPIST RESPIRATORY. Etiology of CKD would be related to atherosclerotic vascular disease, chronic cardiorenal syndrome, hypertension, age-related nephrosclerosis. 3) Hyponatremia because of low osmolar intake, use of spironolactone. Pseudohyponatremia may also be present. A corrected sodium today is around 131. Continue to monitor. Start normal saline. Check urine sodium, urine osmolality. 4) Hypovolemia because of excessive loop diuretics. Potassium levels are better. Continue to replace aggressively. Continue to monitor. 5) Hypothyroidism. Check TSH levels. 6) Dyslipidemia. Continue simvastatin. 7) Gastroesophageal reflux disease. Okay to continue pantoprazole. Continue Eliquis at present dose. All questions answered.
== END 2024-03-03 17:05 | disposition home or self-care (01) | DRG 309 ==
LOC: ED 12:58 → MED SURG 19:46
PROVIDERS: ADMIT Internal Medicine Nephrology; ATTEND Internal Medicine Nephrology
DX: I48.91 Unspecified atrial fibrillation (principal); E87.1 Hypo-osmolality and hyponatremia; N17.9 Acute kidney failure, unspecified; I12.9 Hypertensive chronic kidney disease with stage 1 through stage 4 chronic kidney disease, or unspecified chronic kidney disease; E11.22 Type 2 diabetes mellitus with diabetic chronic kidney disease; N18.30 Chronic kidney disease, stage 3 unspecified; E03.9 Hypothyroidism, unspecified; W18.30XA Fall on same level, unspecified, initial encounter; E86.0 Dehydration; E83.41 Hypermagnesemia; S51.012A Laceration without foreign body of left elbow, initial encounter; S81.811A Laceration without foreign body, right lower leg, initial encounter; M53.3 Sacrococcygeal disorders, not elsewhere classified; E87.6 Hypokalemia; N83.8 Other noninflammatory disorders of ovary, fallopian tube and broad ligament; E78.5 Hyperlipidemia, unspecified; Z79.01 Long term (current) use of anticoagulants; Z79.899 Other long term (current) drug therapy; I48.92 Unspecified atrial flutter; K59.00 Constipation, unspecified; Z85.43 Personal history of malignant neoplasm of ovary
CPT/HCPCS: 36415; 71046; 72148; 72192; 72220; 73080; 73522; 73552; 73560; 73590; 76705; 80053; 81001; 82550; 82947; 83036; 83605; 83735; 83880; 83935; 84300; 84443; 85025; 85027; 92610; 93005; 94762; 97110; 97161; 97165; 97530; 99284; Q3014; J1817; J3480; A9270-GY